=== PATIENT | female | born 1985 | race Caucasian/White ===

== ENCOUNTER 2017-02-04 19:15 | Emergency (ER) | payer OTHER ==
--- NOTE | 2017-02-04 21:41 | ED ORDER SUMMARY ---
..... Patient: HIRO GLYNN OrderSheet [facility] VisitID: [id number] [address] [place] [address] 31y, F Registration Date/Time: 02/04/2017 ORDER SHEET Weight: 86.1 kg (stated) Allergies: Bee stings, Shellfish-derived Products, Vicodin GENERAL ORDERS: US Venous Right Urgent (19:46 02/04/2017 EKoroleva P.A.-C) (Ack 19:55 CHategekimana) (21:11 CBradburn R.N.) CBC w Diff Urgent (19:46 02/04/2017 EKoroleva P.A.-C) (Ack 19:55 Berniceekimana) (20:06 CBradburn R.N.) BMP Urgent (19:46 02/04/2017 EKoroleva P.A.-C) (Ack 19:55 Berniceekimana) (20:06 CBradburn R.N.) Baljit Wrap (21:40 02/04/2017 EKoroleva P.A.-C) (21:58 CBradburn R.N.) MEDICATION ORDERS: Bactrim DS PO (Tablet 800-160 mg) 1 tab (NOW) (21:39 02/04/2017 EKoroleva P.A.-C) (Ack 21:47 CBradburn R.N.) (21:59 CBradburn R.N.) Keflex PO 500 mg (NOW) (21:40 02/04/2017 EKoroleva P.A.-C) (Ack 21:47 CBradburn R.N.) (22:00 CBradburn R.N.) Motrin PO 800 mg (NOW) (21:40 02/04/2017 EKoroleva P.A.-C) (Ack 21:47 CBradburn R.N.) (22:00 CBradburn R.N.) IV FLUIDS: IV Saline Lock (19:46 02/04/2017 EKoroleva P.A.-C) (20:07 CBradburn R.N.) IV NS : initial bolus 1000 mL (1000 mL/hr), then 1000 mL/hr for X1 (NOW); Jayy (20:32 02/04/2017 EKoroleva P.A.-C) (Ack 20:36 CBradburn R.N.) (20:44 CBdonovanburn R.N.) Dilaudid IV 1 mg (HIGH ALERT MEDICATION, NOW) (20:34 02/04/2017 EKoroleva P.A.-C) (Ack 20:36 CBradburn R.N.) (20:44 CBradburn R.N.) ORDER SHEET NOTES: [Electronically signed by Kristie ArnoldANoah-C (21:53 02/04/2017)] [Electronically signed by Rosana Fraser R.N. (22:06 02/04/2017)] [Electronically locked/signed by Rosana Fraser R.N. (22:06 02/04/2017)]
--- NOTE | 2017-02-04 21:41 | ED CLINICAL REPORT ---
Clinical Report - Physicians/Mid Levels [facility] [address] [place] [address] 02/04/2017 19:14 Patient: HIRO GLYNN Time Seen: 2014Feb 04 2017. Arrived- By private vehicle. Historian- patient. HISTORY OF PRESENT ILLNESS Chief Complaint: LOWER EXTREMITY PAIN and SWELLING. This started 3 days and is still present. No bladder dysfunction or bowel dysfunction. ( Patient reports right lower extremity pain especially below her right knee over the last 3 days. Patient denies any injury. Denies any shortness of breath. 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 Patient was on anticoagulation medication for 4 months, and consequently did not take any further. Denies any fevers or chills. Denies any shortness of breath. Patient reports some dizziness with sensation of room spinning today. Patient states she may be dehydrated.). Patient denies an injury. REVIEW OF SYSTEMS No cough, chest pain, difficulty breathing, fever or enlarged lymph nodes. No headache, sore throat, vomiting or diarrhea. All systems otherwise negative, except as recorded above. PAST HISTORY Problems: Sprain. Bronchitis. Contusion. Abscess. Dysfunctional Uterine Bleeding. Seizure Disorder. Seizures ?. Dizzy at work . Dizziness. Headache. Dental Pain. Depression. . Allergic Reaction. Acute Pain. UTI - Urinary Tract Infection. Lifestyle / Substance Problems. Polycystic Ovary Disease. Abdominal Pain. Ovarian Cyst. Immunizations. LNMP - Last Normal Menstrual Period. Additional Surgeries: . SOCIAL HISTORY Current every day light tobacco smoker. History of drug use: marijuana. Not an IV drug user. No alcohol use. ADDITIONAL NOTES The nursing notes have been reviewed. PHYSICAL EXAM Vital Signs: 02/04/2017 19:19 BP: 135/76. HR: 96. RR: 18. O2 saturation: 98%. Temp: 97.8 F. Pain level now: 10/10. Appearance: Alert. ENT: Ears normal. Nose normal. CVS: Normal heart rate and rhythm. Heart sounds normal. Respiratory: No respiratory distress. Abdomen: Soft and nontender. Back: Normal inspection. No tenderness. Skin: Skin warm. Normal skin color. Extremities: Right thigh. No tenderness or laceration. Right knee: mild tenderness and swelling located in the medial joint line. Limited ROM secondary to pain and weakness (diminished flexion). Small joint effusion present. (anterior/ medial/ posterior tenderness.). No ligamentous laxity present. No abrasion, ecchymosis, puncture wound or deformity. No signs of infection involving the lower extremities. No lower extremity edema. Gait: No limping gait. Neuro, Vascular and Tendons: No pulse deficit present. LABS, X-RAYS, AND EKG Laboratory Tests: CBC w Diff: (DOREEN: 02/04/2017 19:30) ( MsgRcvd 02/04/2017 20:01) Final results Test Result Flag Units (Reference) WHITE BLOOD COUNT 13.1 H K/uL (4.5-11.5) RED BLOOD COUNT 4.07 M/uL (4.00-5.20) HEMOGLOBIN 12.0 gm/dL (12.0-16.0) HEMATOCRIT 36.1 % (36.0-46.0) MEAN CELL VOLUME 89 fL (80-100) MEAN CORPUSCULAR HGB 29 pg (26-34) MEAN CORPUSCULAR HGB CONC 33 g/dL (31-37) RED CELL DISTRIBUTION WIDTH 14.0 % (11.6-14.8) PLATELET COUNT 383 K/uL (150-400) NEUTROPHIL % 69.6 % (50-75) LYMPH % 24.5 L % (25-40) MONO % 3.3 % (3-14) EOSINOPHIL % 1.8 % (0-4) BASOPHIL % 0.8 % (0-2) BMP: (DOREEN: 02/04/2017 19:30) ( MsgRcvd 02/04/2017 20:17) Final results Test Result Flag Units (Reference) GLUCOSE 97 mg/dL (70-110) BUN 12 mg/dL (7-18) CREATININE 0.8 mg/dL (0.6-1.3) Estimated GFR >60 mL/min Estimated GFR- >60 mL/min Note: Persistent reduction over 3 months in eGFR<60 mL/min/1.73 m2 defines CKD. Patients with eGFR values>=60 mL/min/1.73 m2 may also have CKD if evidence ofpersistent proteinuria. Additional information may be foundat www.kidney.org. SODIUM 140 mmol/L (136-145) POTASSIUM 3.5 mmol/L (3.5-5.1) CHLORIDE 103 mmol/L (98-107) CARBON DIOXIDE 27 mmol/L (21-32) CALCIUM 8.8 mg/dL (8.5-10.1) . PROGRESS AND PROCEDURES Course of Care: Patient with no signs of DVT. Slight leukocytosis, difficult to attribute such 2. Possible infectious process may be ongoing. Patient is with no lymphadenopathy. no known injury, however pain with movement of the patella as well as flexion of such. Patient stable. Patient is stable. Symptoms better. Patient/family counseled. Disposition: Discharged. CLINICAL IMPRESSION Cellulitis of the right lower leg. Sprain of the medial collateral ligament of the left knee. INSTRUCTIONS Apply ice. Elevate affected areas above chest level. Warnings: Further evaluation is necessary. Prescription Medications: Hydrocodone/APAP 5mg / 325mg: take 1 orally every 6 hours as needed for pain. Dispense twelve (12). No refill. Cephalexin 500 mg: take 1 capsule orally every 8 hours for 10 days. No refill. Ibuprofen take 1 tablet orally every 8 hours for 5 days, as needed for pain. Dispense fifteen (15). No refill. Bactrim DS 800 mg / 160 mg: take 1 tablet orally every 12 hours for 10 days. No refill. Substitution is permissible. Follow-up: Follow up with your doctor in seven days. (Electronically signed by Kristie Arnold P.A.-C 02/04/2017 21:53)
--- NOTE | 2017-02-04 21:41 | ED NURSING NOTES ---
Clinical Report - Nurses [facility] [address] [place] [address] 02/04/2017 19:14 Patient: HIRO GLYNN TRIAGE Triage time 19:19. Acuity: LEVEL 3. Chief Complaint: RIGHT LOWER EXTREMITY PAIN, SWELLING and REDNESS. --19:30 Rosana Fraser R.N. 19:19 02/04/17. BP: 135/76 taken on the left arm, while lying. HR: 96 (regular and normal rate). RR: 18 (regular and unlabored). O2 saturation: 98% on room air. Temp: 97.8 F (oral). Pain level now: 06/25. --19:30 Rosana Fraser R.N. Weight: 86.1 kg stated. Height/Length: 64 inches Per Patient. BMI: 32.6. --19:30 Rosana Fraser R.N. Medications Methadone HCl Oral (Tablet 10 mg) 1 tablet. --22:05 Rosana Fraser R.N. Allergies Bee stings. Shellfish-derived Products. Vicodin. --22:04 Rosana Fraser R.N. History Arrived by EMS. Historian: patient. Primary physician ([facility]). Location of injuries: right leg. This occurred (about 2 days ago). ( pt reports lower ext swelling and pain for 2 days worsening today, nausea denies vomiting. Reports "feeling out of it"). She has had redness with tenderness and heat to right leg and on left leg. PAST MEDICAL HX: Tetanus status: up-to-date. Last normal menstrual period- January 03 2017. 3. Para 1. Abortions 1. Sexual history - sexually active. No contraception. SOCIAL HX: Light tobacco smoker (cigarette)- less than 1/2 a pack per day. History of drug use: marijuana. (1 weeks ago). No alcohol use. No infectious disease exposure. ABUSE ASSESSMENT: No report of abuse. SELF HARM ASSESSMENT: A self harm assessment was performed. The patient answered "no" to the question "Have you recently felt down, depressed, or hopeless?", "Have you noticed less interest or pleasure in doing things?", "Do you have thoughts of harming or killing yourself?", "Are you here because you tried to hurt yourself?", "Have you ever tried to hurt yourself before today?", "Have you recently had thoughts about harming or killing others?" and "Do you have any dangerous items in your possession?". --19:30 Rosana Fraser R.N. PROBLEMS: Bronchitis. Contusion. Abscess. Dysfunctional Uterine Bleeding. Seizure Disorder. Seizures ?. Dizzy at work . Dizziness. Headache. Dental Pain. Depression. . Allergic Reaction. Acute Pain. UTI - Urinary Tract Infection. Lifestyle / Substance Problems. Polycystic Ovary Disease. Abdominal Pain. Ovarian Cyst. Immunizations. LNMP - Last Normal Menstrual Period. --22:06 Rosana Fraser R.N. Dyspnea [Resolved]. Vaginitis [Resolved]. Lower Extremity Pain [Resolved]. Spontaneous (Miscarriage) [Resolved]. --22:06 Rosana Fraser R.N. Seizure [RuleOut]. --22:06 Rosana Fraser R.N. ADDITIONAL SURGERIES: . --22:06 Rosana Fraser R.N. PHYSICAL ASSESSMENT To room via stretcher. GENERAL / NEURO / PSYCH: Oriented X 4. Alert. Appears in no acute distress. Appears in pain. EXTREMITIES: Limited ROM present in the right lower leg and left lower leg. Lower extremity edema. Extremity pulses are within normal limits. Neuro-vascular status intact to the extremity. Right knee: tenderness, swelling and erythema. Right leg. SKIN: Skin intact. Skin is warm and dry. --19:31 Rosana Fraser R.N. NURSING PROGRESS NOTES 19:33 02/04/2017 Site #1 started via IV in the left antecubital space with an 20g angiocath, with aseptic technique and good blood return; one attempt. Blood drawn: rainbow set. Labeled in the presence of the patient and sent to the lab. Saline lock flushed with 10 mL saline. --19:33 Rosana Fraser R.N. Patient ready for evaluation- chart flagged. --19:33 Rosana Fraser R.N. Patient gowned. Two patient identifiers checked. Call light placed in reach. Side rails up x 1. Bed placed in lowest position. Brakes of bed on. --19:33 Rosana Fraser R.N. Patient ID band checked for patient name: patient confirmed. Instructions provided to collect clean catch urine and patient verbalized understanding urine collected with return of tess-colored cloudy urine; sample sent to lab for urinalysis and HCG. Specimen labeled in the presence of the patient. --19:36 Rosana Fraser R.N. 20:28 02/04/17. BP: 137/79 taken on the right arm, while sitting. HR: 95 (regular and normal rate). RR: 16 (regular and unlabored). O2 saturation: 99% on room air. Temp: deferred. Pain level now: 06/25. --20:30 Rosana Fraser R.N. ( pt sitting up on end of gurney no distress noted, continues to c/o pain to lower extremities). GENERAL / NEURO / PSYCH: Alert. Oriented X 4. RESPIRATORY: No respiratory distress. CVS: Capillary refill less than 2 seconds. EXTREMITIES: Neuro-vascular status intact to the extremities. SKIN: Skin is warm and dry. Two patient identifiers checked. Call light placed in reach. Side rails up x 1. Bed placed in lowest position. Brakes of bed on. --20:30 Rosana Fraser R.N. 20:40 02/04/2017 Started bag #1 1000 mL IV Fluids IV NS (Saline); bolus of 1000 mL wide open via site #1. Allergies verified and confirmed 5 rights. IV patency established. IV site checked: no pain, redness, or swelling. IV flushed thoroughly pre- and post-medication administration. --20:44 Rosana Fraser R.N. 20:42 02/04/2017 Dilaudid (HYDROmorphone HCl PF) IVP 1 mg given over 2 minute(s) via site #1. Allergies verified, confirmed 5 rights and sedative warning given to the patient. IV patency established. IV site checked: no pain, redness, or swelling. IV flushed thoroughly pre- and post-medication administration. IVP given by RN. --20:44 Rosana Fraser R.N. 21:50 02/04/2017 Bactrim DS (Sulfamethoxazole-TMP DS) PO Tablets 1 tab given. Allergies verified and confirmed 5 rights. --21:59 Rosana Fraser R.N. 21:50 02/04/2017 Keflex (Cephalexin) PO Capsules 500 mg given. Allergies verified and confirmed 5 rights. --22:00 Rosana Fraser R.N. 21:50 02/04/2017 Motrin PO Tablets 800 mg given. Allergies verified and confirmed 5 rights. --22:00 Rosana Fraser R.N. 21:50 02/04/2017 IV Fluids IV NS Discontinued: bag #1 completed upon discharge. Total amount infused: 1000 mL. IV patency established. IV site checked: no pain, redness, or swelling. IV flushed thoroughly. --21:59 Rosana Fraser R.N. 21:55 02/04/2017 Site #1 removed upon discharge. Catheter intact. Manual pressure and bandage applied. --22: Rosana Fraser R.N. 21:55 02/04/2017 IV Saline Lock Drip IV Discontinued: upon discharge. Total amount infused: 1000 mL. IV patency established. IV site checked: no pain, redness, or swelling. IV flushed thoroughly. --22:00 Rosana Fraser R.N. 3 inch maddi bandage applied to right knee by nurse; distal pulses intact, sensation intact and motor function within normal limits. The patient reports no complaints. GENERAL / NEURO / PSYCH: Oriented X 4. --22:02 Rosana Fraser R.N. DISPOSITION / DISCHARGE Condition at departure: improved and stable. No learning barriers present. Discharge instructions provided and reviewed with the patient. Reviewed medication(s) side effects, precautions, dosing and course information. Prescription(s) given to the patient. Patient verbalized understanding. The patient was discharged home and accompanied by spouse. She left the Emergency Department ambulatory and via private vehicle. Spouse driving. --22:03 Rosana Fraser R.N. 21:55 02/04/17. BP: 141/80 taken on the right arm, while sitting. HR: 88 (regular and normal rate). RR: 18 (regular and unlabored). O2 saturation: 99% on room air. Temp: deferred. Pain level now: 10/26. --22:03 Rosana Fraser R.N. Departure time: 2154. --22:03 Rosana Fraser R.N. Locked/Released at 02/04/2017 22:06 by Rosana Fraser R.N.
--- NOTE | 2017-02-04 21:41 | ED ORDER SUMMARY ---
..... Patient: HIRO GLYNN OrderSheet [facility] VisitID: [id number] [address] [place] [address] 31y, F Registration Date/Time: 02/04/2017 ORDER SHEET Weight: 86.1 kg (stated) Allergies: Bee stings, Shellfish-derived Products, Vicodin GENERAL ORDERS: US Venous Right Urgent (19:46 02/04/2017 EKoroleva P.A.-C) (Ack 19:55 CHategekimana) (21:11 CBradburn R.N.) CBC w Diff Urgent (19:46 02/04/2017 EKoroleva P.A.-C) (Ack 19:55 Berniceekimana) (20:06 CBradburn R.N.) BMP Urgent (19:46 02/04/2017 EKoroleva P.A.-C) (Ack 19:55 Berniceekimana) (20:06 CBradburn R.N.) Baljit Wrap (21:40 02/04/2017 EKoroleva P.A.-C) (21:58 CBradburn R.N.) MEDICATION ORDERS: Bactrim DS PO (Tablet 800-160 mg) 1 tab (NOW) (21:39 02/04/2017 EKoroleva P.A.-C) (Ack 21:47 CBradburn R.N.) (21:59 CBradburn R.N.) Keflex PO 500 mg (NOW) (21:40 02/04/2017 EKoroleva P.A.-C) (Ack 21:47 CBradburn R.N.) (22:00 CBradburn R.N.) Motrin PO 800 mg (NOW) (21:40 02/04/2017 EKoroleva P.A.-C) (Ack 21:47 CBradburn R.N.) (22:00 CBradburn R.N.) IV FLUIDS: IV Saline Lock (19:46 02/04/2017 EKoroleva P.A.-C) (20:07 CBradburn R.N.) IV NS : initial bolus 1000 mL (1000 mL/hr), then 1000 mL/hr for X1 (NOW); Jayy (20:32 02/04/2017 EKoroleva P.A.-C) (Ack 20:36 CBradburn R.N.) (20:44 CBdonovanburn R.N.) Dilaudid IV 1 mg (HIGH ALERT MEDICATION, NOW) (20:34 02/04/2017 EKoroleva P.A.-C) (Ack 20:36 CBradburn R.N.) (20:44 CBradburn R.N.) ORDER SHEET NOTES: [Electronically signed by Kristie ArnoldANoah-C (21:53 02/04/2017)] [Electronically signed by Rosana Fraser R.N. (22:06 02/04/2017)] [Electronically locked/signed by Rosana Fraser R.N. (22:06 02/04/2017)]
--- NOTE | 2017-02-04 21:45 | DIAGNOSTIC IMAGING REPORT ---
PROCEDURE: US VENOUS - RIGHT EXT INDICATION: SWELLING TECHNIQUE: Duplex sonography of the deep venous system in the right lower extremity was performed. Compression and augmentation techniques were used. COMPARISON: None. FINDINGS: Normal compression of the greater saphenous, common femoral, superficial femoral, popliteal, peroneal, and posterior tibial veins. Normal augmentation. There is no evidence of superficial or deep venous thrombosis. IMPRESSION: 1. Negative venous ultrasound of the right lower extremity.
--- NOTE | 2017-02-04 22:06 | ED MED RECONCILIATION SUMMARY ---
Patient: HIRO GLYNN Medication Reconciliation Report [facility] VisitID: [id number] [address] [place] [address] 31y, F Registration Date/Time: 02/04/2017 Weight: 86.1 kg Height/Length: 64 in. BMI: 32.6 ALLERGIES: Bee stings, Shellfish-derived Products, Vicodin The patient's Home Medications are listed below: THE FOLLOWING MEDICATIONS NEED TO BE RECONCILED: Methadone HCl Oral (10 mg) 1 tablet The source(s) of the original Home Medication information: Not obtained. The following Medications were given to the patient in the Emergency Department: IV NS IV Fluids bolus 1000 mL wide open, administered: 02/04/2017 8:40:00 PM Dilaudid [IVP] IVP 1 mg, administered: 02/04/2017 8:42:00 PM Bactrim DS [PO] PO 1 tab, administered: 02/04/2017 9:50:00 PM Keflex [PO] PO 500 mg, administered: 02/04/2017 9:50:00 PM Motrin [PO] PO 800 mg, administered: 02/04/2017 9:50:00 PM The following Medications were prescribed to the patient: Hydrocodone/APAP 5mg / 325mg: take 1 orally every 6 hours as needed for pain. Dispense twelve (12). No refill. -- Kristie Arnold, P.A.-C Cephalexin 500 mg: take 1 capsule orally every 8 hours for 10 days. No refill. -- Estelaoleyao, Kristie, P.A.-C Ibuprofen take 1 tablet orally every 8 hours for 5 days, as needed for pain. Dispense fifteen (15). No refill. -- Catalina, Kristie, P.A.-C Bactrim DS 800 mg / 160 mg: take 1 tablet orally every 12 hours for 10 days. No refill. Substitution is permissible. -- Kristie Arnold, P.A.-C
--- NOTE | 2017-02-04 22:06 | ED MAR SUMMARY ---
..... Medication Administration Record [facility] [address] [place] [address] Patient: HIRO GLYNN Visit ID: [id number] 31y, F Weight: 86.1 kg Height/Length: 64 in BMI: 32.6 ALLERGIES: Bee stings, Shellfish-derived Products, Vicodin Start 20:40 02/04/2017 Rosana Fraser R.N., Stop 21:50 02/04/2017 Rosana Fraser R.N. Medication Administered: IV NS (SALINE), Dose: IV Fluids, Bolus: 1000 mL wide open, Dispensed: 1000 mL bag, Site: #1 left AC. Medication Ordered: IV NS : initial bolus 1000 mL (1000 mL/hr), then 1000 mL/hr for X1 (NOW); Jayy. Given 20:42 02/04/2017 Rosana Fraser R.N. Medication Administered: DILAUDID [IVP] (HYDROMORPHONE HCL PF), Dose: 1 mg IVP over 2 minute(s), Site: #1 left AC. Medication Ordered: Dilaudid IV 1 mg (HIGH ALERT MEDICATION, NOW). Given 21:50 02/04/2017 Rosana Fraser R.N. Medication Administered: BACTRIM DS [PO] (SULFAMETHOXAZOLE-TMP DS), Dose: 1 tab Tablets PO. Medication Ordered: Bactrim DS PO (Tablet 800-160 mg) 1 tab (NOW). Given 21:50 02/04/2017 Rosana Fraser R.N. Medication Administered: KEFLEX [PO] (CEPHALEXIN), Dose: 500 mg Capsules PO. Medication Ordered: Keflex PO 500 mg (NOW). Given 21:50 02/04/2017 Rosana Fraser R.N. Medication Administered: MOTRIN [PO], Dose: 800 mg Tablets PO. Medication Ordered: Motrin PO 800 mg (NOW).
--- NOTE | 2017-02-04 22:06 | ED MAR SUMMARY ---
..... Medication Administration Record [facility] [address] [place] [address] Patient: HIRO GLYNN Visit ID: [id number] 31y, F Weight: 86.1 kg Height/Length: 64 in BMI: 32.6 ALLERGIES: Bee stings, Shellfish-derived Products, Vicodin Start 20:40 02/04/2017 Rosana Fraser R.N., Stop 21:50 02/04/2017 Rosana Fraser R.N. Medication Administered: IV NS (SALINE), Dose: IV Fluids, Bolus: 1000 mL wide open, Dispensed: 1000 mL bag, Site: #1 left AC. Medication Ordered: IV NS : initial bolus 1000 mL (1000 mL/hr), then 1000 mL/hr for X1 (NOW); Jayy. Given 20:42 02/04/2017 Rosana Fraser R.N. Medication Administered: DILAUDID [IVP] (HYDROMORPHONE HCL PF), Dose: 1 mg IVP over 2 minute(s), Site: #1 left AC. Medication Ordered: Dilaudid IV 1 mg (HIGH ALERT MEDICATION, NOW). Given 21:50 02/04/2017 Rosana Fraser R.N. Medication Administered: BACTRIM DS [PO] (SULFAMETHOXAZOLE-TMP DS), Dose: 1 tab Tablets PO. Medication Ordered: Bactrim DS PO (Tablet 800-160 mg) 1 tab (NOW). Given 21:50 02/04/2017 Rosana Fraser R.N. Medication Administered: KEFLEX [PO] (CEPHALEXIN), Dose: 500 mg Capsules PO. Medication Ordered: Keflex PO 500 mg (NOW). Given 21:50 02/04/2017 Rosana Fraser R.N. Medication Administered: MOTRIN [PO], Dose: 800 mg Tablets PO. Medication Ordered: Motrin PO 800 mg (NOW).
--- NOTE | 2017-02-04 22:06 | ED MED RECONCILIATION SUMMARY ---
Patient: HIRO GLYNN Medication Reconciliation Report [facility] VisitID: [id number] [address] [place] [address] 31y, F Registration Date/Time: 02/04/2017 Weight: 86.1 kg Height/Length: 64 in. BMI: 32.6 ALLERGIES: Bee stings, Shellfish-derived Products, Vicodin The patient's Home Medications are listed below: THE FOLLOWING MEDICATIONS NEED TO BE RECONCILED: Methadone HCl Oral (10 mg) 1 tablet The source(s) of the original Home Medication information: Not obtained. The following Medications were given to the patient in the Emergency Department: IV NS IV Fluids bolus 1000 mL wide open, administered: 02/04/2017 8:40:00 PM Dilaudid [IVP] IVP 1 mg, administered: 02/04/2017 8:42:00 PM Bactrim DS [PO] PO 1 tab, administered: 02/04/2017 9:50:00 PM Keflex [PO] PO 500 mg, administered: 02/04/2017 9:50:00 PM Motrin [PO] PO 800 mg, administered: 02/04/2017 9:50:00 PM The following Medications were prescribed to the patient: Hydrocodone/APAP 5mg / 325mg: take 1 orally every 6 hours as needed for pain. Dispense twelve (12). No refill. -- Kristie Arnold, P.A.-C Cephalexin 500 mg: take 1 capsule orally every 8 hours for 10 days. No refill. -- Estelaoleyao, Kristie, P.A.-C Ibuprofen take 1 tablet orally every 8 hours for 5 days, as needed for pain. Dispense fifteen (15). No refill. -- Catalina, Kristie, P.A.-C Bactrim DS 800 mg / 160 mg: take 1 tablet orally every 12 hours for 10 days. No refill. Substitution is permissible. -- Kristie Arnold, P.A.-C
--- NOTE | 2017-02-04 22:06 | ED DISCHARGE INSTRUCTIONS ---
Patient: HIRO GLYNN General Instructions [facility] VisitID: [id number] [place] [address] 31y, F Registration Date/Time: 02/04/2017 Cellulitis of the right lower leg. Sprain of the medial collateral ligament of the left knee. INSTRUCTIONS Apply ice. Elevate affected areas above chest level. Warnings: Further evaluation is necessary. Prescription Medications: Hydrocodone/APAP 5mg / 325mg: take 1 orally every 6 hours as needed for pain. Dispense twelve (12). No refill. Cephalexin 500 mg: take 1 capsule orally every 8 hours for 10 days. No refill. Ibuprofen take 1 tablet orally every 8 hours for 5 days, as needed for pain. Dispense fifteen (15). No refill. Bactrim DS 800 mg / 160 mg: take 1 tablet orally every 12 hours for 10 days. No refill. Substitution is permissible. Follow-up: Follow up with your doctor in seven days. ADDITIONAL INFORMATION Cellulitis You have an infection of the skin known as cellulitis. This usually starts with a scrape, cut, insect bite, blister or other opening in the skin which becomes infected. This is a serious condition. It must be watched closely to be sure the infection is not spreading. With antibiotic treatment, the size of the red area will gradually shrink in size until the skin returns to normal. This will take 7-10 days. The red area should never increase in size once the antibiotic medicine has been started. Occasionally, an infection will be resistant to one antibiotic and another one will have to be used. Home Care: 1) Limit the use of the affected part, since excess movement can cause the infection to spread. 2) If the infection is on your leg, walk as little as possible during the first few days of the treatment. Keep your leg elevated while sitting. This will reduce swelling. 3) Take all of the antibiotic medicine exactly as directed until it is gone. Be careful not to miss any doses, especially during the first seven days. Follow Up with your doctor or this facility as directed. Check the infected area daily for the warning signs listed below. Get Prompt Medical Attention if any of the following occur: -- Spreading area of redness -- Increasing swelling or pain -- Appearance of pus or drainage -- Fever over 100.4 F (38.0 C) oral, or over 101.4 F (38.6 C) rectal, after two days on antibiotics Sprain, Knee A sprain is an injury to the ligaments or capsule that holds a joint together. There are no broken bones. Most sprains take three to six weeks to heal. If the ligament is completely torn (severe sprain), it can take months to recover from. Most knee sprains are treated with a splint, knee immobilizer or elastic wrap for support. Severe sprains may require surgery. Home care The following guidelines will help you care for your injury at home: Stay off the injured leg as much as possible until you can walk on it without pain. If you have a lot of pain with walking, crutches or a walker may be prescribed. (These can be rented or purchased at many pharmacies and surgical or orthopedic supply stores). Follow your doctor's advice regarding when to begin bearing weight on that leg. Keep your leg elevated to reduce pain and swelling. When sleeping, place a pillow under the injured leg. When sitting, support the injured leg so it is level with your waist. This is very important during the first 48 hours. Apply an ice pack (ice cubes in a plastic bag, wrapped in a towel) over the injured area for 20 minutes every 12 hours the first day. You can place the ice pack directly over the splint. If a Velcro knee immobilizer was applied, you can open this to apply the ice pack directly to the knee. Continue with ice packs 34 times a day for the next two days, then as needed for the relief of pain and swelling. You may use acetaminophen or ibuprofen to control pain, unless another pain medicine was prescribed. If you have chronic liver or kidney disease or ever had a stomach ulcer or GI bleeding, talk with your doctor before using these medicines. If you were given a splint, keep it completely dry at all times. Bathe with your splint out of the water, protected with a large plastic bag, rubber-banded at the top end. If a fiberglass splint gets wet, you can dry it with a hair-dryer. If you have a Velcro knee immobilizer, you can remove this to bathe, unless told otherwise. Follow-up care Follow up with your doctor as advised. Any X-rays you had today dont show any broken bones, breaks, or fractures. Sometimes fractures dont show up on the first X-ray. Bruises and sprains can sometimes hurt as much as a fracture. These injuries can take time to heal completely. If your symptoms dont improve or they get worse, talk with your doctor. You may need a repeat X-ray. When to seek medical care Get prompt medical attention if any of the following occur: The plaster cast or splint becomes wet or soft The fiberglass cast or splint remains wet for more than 24 hours Pain or swelling increases Toes become cold, blue, numb or tingly Hydrocodone Bitartrate, Acetaminophen Oral tablet What is this medicine? ACETAMINOPHEN; HYDROCODONE (a set a VIKY bryon fen; champ droe KOE done) is a pain reliever. It is used to treat mild to moderate pain. How should I use this medicine? Take this medicine by mouth. Swallow it with a full glass of water. Follow the directions on the prescription label. If the medicine upsets your stomach, take the medicine with food or milk. Do not take more than you are told to take. Talk to your supervisor feed house regarding the use of this medicine in children. This medicine is not approved for use in children. What side effects may I notice from receiving this medicine? Side effects that you should report to your doctor or health anesthesiologist and critical care as soon as possible: allergic reactions like skin rash, itching or hives, swelling of the face, lips, or tongue breathing problems confusion feeling faint or lightheaded, falls stomach pain yellowing of the eyes or skin Side effects that usually do not require medical attention (report to your doctor or health anesthesiologist and critical care if they continue or are bothersome): nausea, vomiting stomach upset What may interact with this medicine? alcohol antihistamines isoniazid medicines for depression, anxiety, or psychotic disturbances medicines for sleep muscle relaxants naltrexone narcotic medicines (opiates) for pain phenobarbital ritonavir tramadol What if I miss a dose? If you miss a dose, take it as soon as you can. If it is almost time for your next dose, take only that dose. Do not take double or extra doses. Where should I keep my medicine? Keep out of the reach of children. This medicine can be abused. Keep your medicine in a safe place to protect it from theft. Do not share this medicine with anyone. Selling or giving away this medicine is dangerous and against the law. Store at room temperature between 15 and 30 degrees C (59 and 86 degrees F). Protect from light. Keep container tightly closed. Throw away any unused medicine after the expiration date. Discard unused medicine and used packaging carefully. Pets and children can be harmed if they find used or lost packages. What should I tell my health care provider before I take this medicine? They need to know if you have any of these conditions: brain tumor Crohn's disease, inflammatory bowel disease, or ulcerative colitis drink more than 3 alcohol-containing drinks per day drug abuse or addiction head injury heart or circulation problems kidney disease or problems going to the bathroom liver disease lung disease, asthma, or breathing problems an unusual or allergic reaction to acetaminophen, hydrocodone, other opioid analgesics, other medicines, foods, dyes, or preservatives or trying to get breast-feeding What should I watch for while using this medicine? Tell your doctor or health anesthesiologist and critical care if your pain does not go away, if it gets worse, or if you have new or a different type of pain. You may develop tolerance to the medicine. Tolerance means that you will need a higher dose of the medicine for pain relief. Tolerance is normal and is expected if you take the medicine for a long time. Do not suddenly stop taking your medicine because you may develop a severe reaction. Your body becomes used to the medicine. This does NOT mean you are addicted. Addiction is a behavior related to getting and using a drug for a non-medical reason. If you have pain, you have a medical reason to take pain medicine. Your doctor will tell you how much medicine to take. If your doctor wants you to stop the medicine, the dose will be slowly lowered over time to avoid any side effects. You may get drowsy or dizzy when you first start taking the medicine or change doses. Do not drive, use machinery, or do anything that may be dangerous until you know how the medicine affects you. Stand or sit up slowly. There are different types of narcotic medicines (opiates) for pain. If you take more than one type at the same time, you may have more side effects. Give your health care provider a list of all medicines you use. Your doctor will tell you how much medicine to take. Do not take more medicine than directed. Call emergency for help if you have problems breathing. The medicine will cause constipation. Try to have a bowel movement at least every 2 to 3 days. If you do not have a bowel movement for 3 days, call your doctor or health anesthesiologist and critical care. Too much acetaminophen can be very dangerous. Do not take Tylenol (acetaminophen) or medicines that contain acetaminophen with this medicine. Many non-prescription medicines contain acetaminophen. Always read the labels carefully. Cephalexin Monohydrate Oral tablet What is this medicine? CEPHALEXIN (sef a JER in) is a cephalosporin antibiotic. It is used to treat certain kinds of bacterial infections It will not work for colds, flu, or other viral infections. How should I use this medicine? Take this medicine by mouth with a full glass of water. Follow the directions on the prescription label. This medicine can be taken with or without food. Take your medicine at regular intervals. Do not take your medicine more often than directed. Take all of your medicine as directed even if you think you are better. Do not skip doses or stop your medicine early. Talk to your supervisor feed house regarding the use of this medicine in children. While this drug may be prescribed for selected conditions, precautions do apply. What side effects may I notice from receiving this medicine? Side effects that you should report to your doctor or health anesthesiologist and critical care as soon as possible: allergic reactions like skin rash, itching or hives, swelling of the face, lips, or tongue breathing problems pain or trouble passing urine redness, blistering, peeling or loosening of the skin, including inside the mouth severe or watery diarrhea unusually weak or tired yellowing of the eyes, skin Side effects that usually do not require medical attention (report to your doctor or health anesthesiologist and critical care if they continue or are bothersome): gas or heartburn genital or anal irritation headache joint or muscle pain nausea, vomiting What may interact with this medicine? probenecid some other antibiotics What if I miss a dose? If you miss a dose, take it as soon as you can. If it is almost time for your next dose, take only that dose. Do not take double or extra doses. There should be at least 4 to 6 hours between doses. Where should I keep my medicine? Keep out of the reach of children. Store at room temperature between 59 and 86 degrees F (15 and 30 degrees C). Throw away any unused medicine after the expiration date. What should I tell my health care provider before I take this medicine? They need to know if you have any of these conditions: kidney disease stomach or intestine problems, especially colitis an unusual or allergic reaction to cephalexin, other cephalosporins, penicillins, other antibiotics, medicines, foods, dyes or preservatives or trying to get breast-feeding What should I watch for while using this medicine? Tell your doctor or health anesthesiologist and critical care if your symptoms do not begin to improve in a few days. Do not treat diarrhea with over the counter products. Contact your doctor if you have diarrhea that lasts more than 2 days or if it is severe and watery. If you have diabetes, you may get a false-positive result for sugar in your urine. Check with your doctor or health anesthesiologist and critical care. Sulfamethoxazole, Trimethoprim Oral tablet What is this medicine? SULFAMETHOXAZOLE; TRIMETHOPRIM or SMX-TMP (suhl fuh meth OK eloina zohl; trye METH oh prim) is a combination of a sulfonamide antibiotic and a second antibiotic, trimethoprim. It is used to treat or prevent certain kinds of bacterial infections. It will not work for colds, flu, or other viral infections. How should I use this medicine? Take this medicine by mouth with a full glass of water. Follow the directions on the prescription label. Take your medicine at regular intervals. Do not take it more often than directed. Do not skip doses or stop your medicine early. Talk to your supervisor feed house regarding the use of this medicine in children. Special care may be needed. This medicine has been used in children as young as 2 months of age. What side effects may I notice from receiving this medicine? Side effects that you should report to your doctor or health anesthesiologist and critical care as soon as possible: allergic reactions like skin rash or hives, swelling of the face, lips, or tongue breathing problems fever or chills, sore throat irregular heartbeat, chest pain joint or muscle pain pain or difficulty passing urine red pinpoint spots on skin redness, blistering, peeling or loosening of the skin, including inside the mouth unusual bleeding or bruising unusually weak or tired yellowing of the eyes or skin Side effects that usually do not require medical attention (report to your doctor or health anesthesiologist and critical care if they continue or are bothersome): diarrhea dizziness headache loss of appetite nausea, vomiting nervousness What may interact with this medicine? Do not take this medicine with any of the following medications: aminobenzoate potassium dofetilide metronidazole This medicine may also interact with the following medications: ARLETTE inhibitors like benazepril, enalapril, lisinopril, and ramipril cyclosporine digoxin diuretics indomethacin medicines for diabetes methenamine methotrexate phenytoin potassium supplements pyrimethamine sulfinpyrazone tricyclic antidepressants warfarin What if I miss a dose? If you miss a dose, take it as soon as you can. If it is almost time for your next dose, take only that dose. Do not take double or extra doses. Where should I keep my medicine? Keep out of the reach of children. Store at room temperature between 20 to 25 degrees C (68 to 77 degrees F). Protect from light. Throw away any unused medicine after the expiration date. What should I tell my health care provider before I take this medicine? They need to know if you have any of these conditions: anemia asthma being treated with anticonvulsants if you frequently drink alcohol containing drinks kidney disease liver disease low level of folic acid or [id number] dehydrogenase poor nutrition or malabsorption porphyria severe allergies thyroid disorder an unusual or allergic reaction to sulfamethoxazole, trimethoprim, sulfa drugs, other medicines, foods, dyes, or preservatives or trying to get breast-feeding What should I watch for while using this medicine? Tell your doctor or health anesthesiologist and critical care if your symptoms do not improve. Drink several glasses of water a day to reduce the risk of kidney problems. Do not treat diarrhea with over the counter products. Contact your doctor if you have diarrhea that lasts more than 2 days or if it is severe and watery. This medicine can make you more sensitive to the sun. Keep out of the sun. If you cannot avoid being in the sun, wear protective clothing and use a sunscreen. Do not use sun lamps or tanning beds/booths. You have been given the following additional information: Cellulitis Knee Sprain Hydrocodone Bitartrate, Acetaminophen Oral tablet Cephalexin Monohydrate Oral tablet Sulfamethoxazole, Trimethoprim Oral tablet (Electronically signed by Kristie Arnold P.A.-C 02/04/2017 21:53)
== END 2017-02-04 21:55 | disposition home or self-care (01) ==
LOC: ED SRH 19:15
DX: L03.115 Cellulitis of right lower limb (principal); S83.412A Sprain of medial collateral ligament of left knee, initial encounter; Y93.9 Activity, unspecified; Y99.9 Unspecified external cause status; Y92.9 Unspecified place or not applicable; Z88.5 Allergy status to narcotic agent; Z91.013 Allergy to seafood; Z72.0 Tobacco use

== ENCOUNTER 2017-03-10 22:27 | Emergency (ER) | payer OTHER ==
--- NOTE | 2017-03-10 23:16 | ED CLINICAL REPORT ---
Clinical Report - Physicians/Mid Levels [facility] [address] [place] [address] 03/10/2017 22:29 Patient: HIRO GLYNN Time Seen: 13:15 Mar 11 2017. Arrived- By ambulance. Historian- patient and EMS personnel. HISTORY OF PRESENT ILLNESS Chief Complaint: SKIN RASH. The patient has had difficulty breathing, itching and trouble swallowing. This started just prior to arrival and is still present. (patient was previously seen in the emergency department, for cellulitis, was prescribed Keflex> Patient took her Keflex, however did not finished a course of antibiotics, as her symptoms improved. Over the last 2 days for lower extremity swelling has worsened a started with Keflex again, taking 1000 mg . patient had a burning sensation in her hand, took Benadryl prior to arrival, her symptoms are now improving.). REVIEW OF SYSTEMS No eye problems, cough, sputum production, fever or chills. No joint pain, headache, weakness, chest pain or abdominal pain. No vomiting or pain with urination. All systems otherwise negative, except as recorded above. SOCIAL HISTORY No drug use. PHYSICAL EXAM Appearance: Alert. No acute distress. Eyes: Pupils equal, round and reactive to light. ENT: Voice normal. Neck: Neck supple. CVS: Normal heart rate and rhythm. Heart sounds normal. Rate normal. Respiratory: No respiratory distress. Breath sounds normal. Skin: Skin warm. Erythema (mild pink, no warmth.). Skin: Skin rash. No urticaria. Neuro: Oriented X 3. No motor deficit. PROGRESS AND PROCEDURES Course of Care: Patient in the emergency department with minor lower extremity swelling and erythema, encourage patient to take antibiotics and full, as previously prescribed, avoid Keflex for the time being, she may have a sensitivity to Keflex and high doses. 03/10/2017 23:25 BP: 139/88. HR: 83. RR: 15. O2 saturation: 100%. Pain level now: 0/10. Patient is stable. Symptoms better. Patient/family counseled. Disposition: Discharged. Condition: good. CLINICAL IMPRESSION Allergic reaction. Cellulitis of the right lower leg and left lower leg. INSTRUCTIONS (if you are taking keflex, take 500 mg at a time [facility] ). Warnings: Further evaluation is necessary. Prescription Medications: Bactrim DS 800 mg / 160 mg: take 1 tablet orally every 12 hours for 10 days. No refill. Substitution is permissible. OTC Medications: Take acetaminophen (Tylenol, Datril, etc.), ibuprofen (Advil, Nuprin, etc.) and Benadryl according to label instructions. Available over the counter. Follow-up: Follow up with your doctor as needed. (Electronically signed by Kristie Arnold P.A.-C 03/11/2017 14:35)
--- NOTE | 2017-03-10 23:16 | ED CLINICAL REPORT ---
Clinical Report - Physicians/Mid Levels [facility] [address] [place] [address] 03/10/2017 22:29 Patient: HIRO GLYNN Time Seen: 13:15 Mar 11 2017. Arrived- By ambulance. Historian- patient and EMS personnel. HISTORY OF PRESENT ILLNESS Chief Complaint: SKIN RASH. The patient has had difficulty breathing, itching and trouble swallowing. This started just prior to arrival and is still present. (patient was previously seen in the emergency department, for cellulitis, was prescribed Keflex> Patient took her Keflex, however did not finished a course of antibiotics, as her symptoms improved. Over the last 2 days for lower extremity swelling has worsened a started with Keflex again, taking 1000 mg . patient had a burning sensation in her hand, took Benadryl prior to arrival, her symptoms are now improving.). REVIEW OF SYSTEMS No eye problems, cough, sputum production, fever or chills. No joint pain, headache, weakness, chest pain or abdominal pain. No vomiting or pain with urination. All systems otherwise negative, except as recorded above. SOCIAL HISTORY No drug use. PHYSICAL EXAM Appearance: Alert. No acute distress. Eyes: Pupils equal, round and reactive to light. ENT: Voice normal. Neck: Neck supple. CVS: Normal heart rate and rhythm. Heart sounds normal. Rate normal. Respiratory: No respiratory distress. Breath sounds normal. Skin: Skin warm. Erythema (mild pink, no warmth.). Skin: Skin rash. No urticaria. Neuro: Oriented X 3. No motor deficit. PROGRESS AND PROCEDURES Course of Care: Patient in the emergency department with minor lower extremity swelling and erythema, encourage patient to take antibiotics and full, as previously prescribed, avoid Keflex for the time being, she may have a sensitivity to Keflex and high doses. 03/10/2017 23:25 BP: 139/88. HR: 83. RR: 15. O2 saturation: 100%. Pain level now: 0/10. Patient is stable. Symptoms better. Patient/family counseled. Disposition: Discharged. Condition: good. CLINICAL IMPRESSION Allergic reaction. Cellulitis of the right lower leg and left lower leg. INSTRUCTIONS (if you are taking keflex, take 500 mg at a time [facility] ). Warnings: Further evaluation is necessary. Prescription Medications: Bactrim DS 800 mg / 160 mg: take 1 tablet orally every 12 hours for 10 days. No refill. Substitution is permissible. OTC Medications: Take acetaminophen (Tylenol, Datril, etc.), ibuprofen (Advil, Nuprin, etc.) and Benadryl according to label instructions. Available over the counter. Follow-up: Follow up with your doctor as needed. (Electronically signed by Kristie Arnold P.A.-C 03/11/2017 14:35)
--- NOTE | 2017-03-10 23:16 | ED ORDER SUMMARY ---
..... Patient: HIRO GLYNN OrderSheet [facility] VisitID: [id number] [place] [address] 31y, F Registration Date/Time: 03/10/2017 ORDER SHEET Weight: 85.7 kg (stated) Allergies: Bee stings, Shellfish-derived Products, Vicodin GENERAL ORDERS: MEDICATION ORDERS: IV FLUIDS: Pepcid IV 40 mg/50mL (NOW) (22:46 03/10/2017 Obi P.A.-C) (Ack 22:48 JQuivey R.N.) (22:54 JQuivey R.N.) IV NS : initial bolus none -, then 1000 mL/hr (NOW) (23:01 03/10/2017 JQuivey R.N. per protocol) (23:03 JQuivey R.N.) ORDER SHEET NOTES: [Electronically signed by Mj Orourke R.N. (01:03/11/2017)] [Electronically signed by Kristie Arnold.A.-Bubba (14:35 03/11/2017)] [Electronically locked/signed by Mj Orourke R.N. (:03/11/2017)]
--- NOTE | 2017-03-10 23:16 | ED ORDER SUMMARY ---
..... Patient: HIRO GLYNN OrderSheet [facility] VisitID: [id number] [place] [address] 31y, F Registration Date/Time: 03/10/2017 ORDER SHEET Weight: 85.7 kg (stated) Allergies: Bee stings, Shellfish-derived Products, Vicodin GENERAL ORDERS: MEDICATION ORDERS: IV FLUIDS: Pepcid IV 40 mg/50mL (NOW) (22:46 03/10/2017 Obi P.A.-C) (Ack 22:48 JQuivey R.N.) (22:54 JQuivey R.N.) IV NS : initial bolus none -, then 1000 mL/hr (NOW) (23:01 03/10/2017 JQuivey R.N. per protocol) (23:03 JQuivey R.N.) ORDER SHEET NOTES: [Electronically signed by Mj Orourke R.N. (01:03/11/2017)] [Electronically signed by Kristie Arnold.A.-Bubba (14:35 03/11/2017)] [Electronically locked/signed by Mj Orourke R.N. (:03/11/2017)]
--- NOTE | 2017-03-10 23:16 | ED NURSING NOTES ---
Clinical Report - Nurses [facility] [address] [place] [address] 03/10/2017 22:29 Patient: HIRO GLYNN TRIAGE Triage time 22:32. Acuity: LEVEL 3. Chief Complaint: POSSIBLE ALLERGIC REACTION and DIFFICULTY BREATHING 22:47. Alert. --22:47 Mj Orourke R.N. 22:32 03/10/17. BP: 141/85. HR: 97. RR: 16. O2 saturation: 99% on room air. Temp: 98 F (oral). Pain level now: 0/10. --22:47 Mj Orourke R.N. Weight: 85.7 kg stated. Height/Length: 64 inches Per Patient. BMI: 32.5. --22:47 Mj Orourke R.N. Medications Albuterol Sulfate Inhalation 2 puffs, PRN. --22:42 Mj Orourke R.N. Zoloft Oral 150mg , daily. --22:45 Mj Orourke R.N. Levothyroxine Sodium Oral 50 mcg, daily. --22:45 Mj Orourke R.N. Xanax Oral, as needed (pt unsure of dose ). --22:46 Mj Orourke R.N. BP med - pt can't remember name . --22:46 Mj Orourke R.N. The following entry was struck by Mj Orourke R.N., 22:44 (03/10/17) Reason - other. <<STRICKEN ENTRY-- Methadone HCl Oral (Tablet 10 mg) 1 tablet. --22:42 Mj Orourke R.N. --END STRIKE>>. Allergies Bee stings. Shellfish-derived Products. Vicodin. --22:42 Mj Orourke R.N. Medication/allergy information source: the patient. --22:47 Mj Orourke R.N. History Arrived by EMS. Historian: patient. Unaccompanied. Primary physician (None). Onset. (about 2044). ( Pt reports taking 2 tabs of Keflex about 1949 then about 2044 she started experiencing a burning sensation in her hand, then all over then began to have difficulty breathing took 50mg of Benadryl and called EMS). Treatment TOOL AND MACHINE MAINTAINER: EMS treatment TOOL AND MACHINE MAINTAINER verbally communicated. Medications given- (1 unit dose Albuterol HHN). IV fluid given (450ml NS infused TOOL AND MACHINE MAINTAINER). PAST MEDICAL HX: Immunizations: up-to-date. Last normal menstrual period- "Over a month". SOCIAL HX: No infectious disease exposure. ABUSE ASSESSMENT: No report of abuse. FALL RISK ASSESSMENT: Fall risk assessment completed. No fall risk identified. NUTRITIONAL RISK ASSESSMENT: The nutritional risk assessment revealed no deficiencies. FUNCTIONAL ASSESSMENT: Functional assessment: no impairments noted. LEARNING NEEDS ASSESSMENT: The learning needs assessment revealed no barriers. SKIN INTEGRITY ASSESSMENT: Skin integrity risk assessment completed. No skin integrity risk identified. --22:47 Mj Orourke R.N. PROBLEMS: Bronchitis. Dysfunctional Uterine Bleeding. Seizure Disorder. Depression. Allergic Reaction. UTI - Urinary Tract Infection. Polycystic Ovary Disease. Ovarian Cyst. --22:42 Mj Orourke R.N. Anxiety Reaction. --22:47 Mj Orourke R.N. ADDITIONAL SURGERIES: . --22:43 Mj Orourke R.N. Interventions ID band on patient. To treatment room. --22:47 Mj Orourke R.N. 22:13 03/10/2017 Site #1 started prior to arrival by EMS via IV in the left antecubital space with an 18g angiocath. --22:38 Mj Orourke R.N. PHYSICAL ASSESSMENT 22:41. To room via stretcher. Patient gowned. GENERAL / NEURO / PSYCH: Alert. Oriented X 4. HEENT: Mucous membranes are pink. RESPIRATORY: Respirations not labored. SKIN: Skin is intact, warm and dry. No skin rash. --22:41 Mj Orourke R.N. NURSING PROGRESS NOTES 22:41. Head of bed elevated. Two patient identifiers checked. Call light placed in reach. Side rails up x 1. Bed placed in lowest position. Brakes of bed on. Patient ready for evaluation- chart flagged. --22:41 Mj Orourke R.N. 22:52 03/10/2017 Started bag #1 1000 mL IV Fluids IV NS (Saline); at 1000 mL/hr over 1 hour(s) via site #1. (Started by EMS TOOL AND MACHINE MAINTAINER). --23:03 Mj Orourke R.N. 22:54 03/10/2017 Started 40 mg of Pepcid IVPB in bag #1 100 mL; at 200 mL/hr over 30 minute(s) via site #1 --22:54 Mj Orourke R.N. The patient is calm and resting quietly. RESPIRATORY: No respiratory distress. SKIN: Skin is warm and dry. Skin color within normal limits. --23:04 Mj Orourke R.N. 23:03 03/10/17. BP: 138/85. HR: 95. RR: 16. O2 saturation: 100% on room air. --23:04 Mj Orourke R.N. 23:24 03/10/2017 Pepcid IVPB Discontinued: bag #1 infused. Total amount infused: 100 mL. IV patency established. IV site checked: no pain, redness, or swelling. IV flushed thoroughly. --23:27 Mj Orourke R.N. 23:28 03/10/2017 IV Fluids IV NS Discontinued: bag #1 STOPPED upon discharge. Total amount infused: 825 mL. IV patency established. IV site checked: no pain, redness, or swelling. IV flushed thoroughly. --23:28 Mj Orourke R.N. 23:30. The patient is calm and resting quietly. RESPIRATORY: No respiratory distress. SKIN: Skin is warm and dry. Skin color within normal limits. --23:35 Mj Orourke R.N. DISPOSITION / DISCHARGE 23:27 03/10/2017 Site #1 removed upon discharge. Catheter intact. Bandage applied. --23:32 Mj Orourke R.N. Departure time: 23:32. Condition at departure: stable. No learning barriers present. Discharge instructions provided and reviewed with the patient. Reviewed medication(s) side effects, precautions, dosing and course information. Prescription(s) given to the patient. Patient verbalized understanding. Written instructions provided in Vietnamese. The patient was discharged home and accompanied by cash processor. She left the Emergency Department ambulatory and via private vehicle. Senior Data Analyst driving. FALL RISK ASSESSMENT: Fall risk assessment completed. No fall risk identified. --23:33 Mj Orourke R.N. 23:25 03/10/17. BP: 139/88. HR: 83. RR: 15. O2 saturation: 100% on room air. Pain level now: 0/10. --23:33 Mj Orourke R.N. Locked/Released at 03/11/2017 1:23 by Mj Orourke R.N.
--- NOTE | 2017-03-10 23:16 | ED NURSING NOTES ---
Clinical Report - Nurses [facility] [address] [address] 03/10/2017 22:29 Patient: HIRO GLYNN TRIAGE Triage time 22:32. Acuity: LEVEL 3. Chief Complaint: POSSIBLE ALLERGIC REACTION and DIFFICULTY BREATHING 22:47. Alert. --22:47 Mj Orourke R.N. 22:32 03/10/17. BP: 141/85. HR: 97. RR: 16. O2 saturation: 99% on room air. Temp: 98 F (oral). Pain level now: 0/10. --22:47 Mj Orourke R.N. Weight: 85.7 kg stated. Height/Length: 64 inches Per Patient. BMI: 32.5. --22:47 Mj Orourke R.N. Medications Albuterol Sulfate Inhalation 2 puffs, PRN. --22:42 Mj Orourke R.N. Zoloft Oral 150mg , daily. --22:45 Mj Orourke R.N. Levothyroxine Sodium Oral 50 mcg, daily. --22:45 Mj Orourke R.N. Xanax Oral, as needed (pt unsure of dose ). --22:46 Mj Orourke R.N. BP med - pt can't remember name . --22:46 Mj Orourke R.N. The following entry was struck by Mj Orourke R.N., 22:44 (03/10/17) Reason - other. <<STRICKEN ENTRY-- Methadone HCl Oral (Tablet 10 mg) 1 tablet. --22:42 Mj Orourke R.N. --END STRIKE>>. Allergies Bee stings. Shellfish-derived Products. Vicodin. --22:42 Mj Orourke R.N. Medication/allergy information source: the patient. --22:47 Mj Orourke R.N. History Arrived by EMS. Historian: patient. Unaccompanied. Primary physician (None). Onset. (about 2044). ( Pt reports taking 2 tabs of Keflex about 1949 then about 2044 she started experiencing a burning sensation in her hand, then all over then began to have difficulty breathing took 50mg of Benadryl and called EMS). Treatment AUTOMATION DRIVER: EMS treatment AUTOMATION DRIVER verbally communicated. Medications given- (1 unit dose Albuterol HHN). IV fluid given (450ml NS infused AUTOMATION DRIVER). PAST MEDICAL HX: Immunizations: up-to-date. Last normal menstrual period- "Over a month". SOCIAL HX: No infectious disease exposure. ABUSE ASSESSMENT: No report of abuse. FALL RISK ASSESSMENT: Fall risk assessment completed. No fall risk identified. NUTRITIONAL RISK ASSESSMENT: The nutritional risk assessment revealed no deficiencies. FUNCTIONAL ASSESSMENT: Functional assessment: no impairments noted. LEARNING NEEDS ASSESSMENT: The learning needs assessment revealed no barriers. SKIN INTEGRITY ASSESSMENT: Skin integrity risk assessment completed. No skin integrity risk identified. --22:47 Mj Orourke R.N. PROBLEMS: Bronchitis. Dysfunctional Uterine Bleeding. Seizure Disorder. Depression. Allergic Reaction. UTI - Urinary Tract Infection. Polycystic Ovary Disease. Ovarian Cyst. --22:42 Mj Orourke R.N. Anxiety Reaction. --22:47 Mj Orourke R.N. ADDITIONAL SURGERIES: . --22:43 Mj Orourke R.N. Interventions ID band on patient. To treatment room. --22:47 Mj Orourke R.N. 22:13 03/10/2017 Site #1 started prior to arrival by EMS via IV in the left antecubital space with an 18g angiocath. --22:38 Mj Orourke R.N. PHYSICAL ASSESSMENT 22:41. To room via stretcher. Patient gowned. GENERAL / NEURO / PSYCH: Alert. Oriented X 4. HEENT: Mucous membranes are pink. RESPIRATORY: Respirations not labored. SKIN: Skin is intact, warm and dry. No skin rash. --22:41 Mj Orourke R.N. NURSING PROGRESS NOTES 22:41. Head of bed elevated. Two patient identifiers checked. Call light placed in reach. Side rails up x 1. Bed placed in lowest position. Brakes of bed on. Patient ready for evaluation- chart flagged. --22:41 Mj Orourke R.N. 22:52 03/10/2017 Started bag #1 1000 mL IV Fluids IV NS (Saline); at 1000 mL/hr over 1 hour(s) via site #1. (Started by EMS AUTOMATION DRIVER). --23:03 Mj Orourke R.N. 22:54 03/10/2017 Started 40 mg of Pepcid IVPB in bag #1 100 mL; at 200 mL/hr over 30 minute(s) via site #1 --22:54 Mj Orourke R.N. The patient is calm and resting quietly. RESPIRATORY: No respiratory distress. SKIN: Skin is warm and dry. Skin color within normal limits. --23:04 Mj Orourke R.N. 23:03 03/10/17. BP: 138/85. HR: 95. RR: 16. O2 saturation: 100% on room air. --23:04 Mj Orourke R.N. 23:24 03/10/2017 Pepcid IVPB Discontinued: bag #1 infused. Total amount infused: 100 mL. IV patency established. IV site checked: no pain, redness, or swelling. IV flushed thoroughly. --23:27 Mj Orourke R.N. 23:28 03/10/2017 IV Fluids IV NS Discontinued: bag #1 STOPPED upon discharge. Total amount infused: 825 mL. IV patency established. IV site checked: no pain, redness, or swelling. IV flushed thoroughly. --23:28 Mj Orourke R.N. 23:30. The patient is calm and resting quietly. RESPIRATORY: No respiratory distress. SKIN: Skin is warm and dry. Skin color within normal limits. --23:35 Mj Orourke R.N. DISPOSITION / DISCHARGE 23:27 03/10/2017 Site #1 removed upon discharge. Catheter intact. Bandage applied. --23:32 Mj Orourke R.N. Departure time: 23:32. Condition at departure: stable. No learning barriers present. Discharge instructions provided and reviewed with the patient. Reviewed medication(s) side effects, precautions, dosing and course information. Prescription(s) given to the patient. Patient verbalized understanding. Written instructions provided in Vietnamese. The patient was discharged home and accompanied by hot plate plywood press offbearer. She left the Emergency Department ambulatory and via private vehicle. Block Captain driving. FALL RISK ASSESSMENT: Fall risk assessment completed. No fall risk identified. --23:33 Mj Orourke R.N. 23:25 03/10/17. BP: 139/88. HR: 83. RR: 15. O2 saturation: 100% on room air. Pain level now: 0/10. --23:33 Mj Orourke R.N. Locked/Released at 03/11/2017 1:23 by Mj Orourke R.N.
--- NOTE | 2017-03-11 14:35 | ED DISCHARGE INSTRUCTIONS ---
Patient: HIRO GLYNN General Instructions [facility] VisitID: [id number] [place] [address] 31y, F Registration Date/Time: 03/10/2017 Allergic reaction. Cellulitis of the right lower leg and left lower leg. INSTRUCTIONS (if you are taking keflex, take 500 mg at a time [facility] ). Warnings: Further evaluation is necessary. Prescription Medications: Bactrim DS 800 mg / 160 mg: take 1 tablet orally every 12 hours for 10 days. No refill. Substitution is permissible. OTC Medications: Take acetaminophen (Tylenol, Datril, etc.), ibuprofen (Advil, Nuprin, etc.) and Benadryl according to label instructions. Available over the counter. Follow-up: Follow up with your doctor as needed. ADDITIONAL INFORMATION Allergic Reaction,Generalized [Other] You are having an allergic reaction. This may cause an itchy rash, dizziness, fainting, trouble breathing or swallowing, and swelling of the face or other parts of the body. This can be caused by exposure to something in your surroundings that you have become sensitive to. This could be due to medicine or food. This could also be due to something you put on your skin or in your hair or something in the air. Often it is not possible to find out exactly what has caused your reaction. The goal of today's treatment is to relieve symptoms. The rash will usually fade over several days, but can sometimes last up to two weeks. Home Care: 1) If you know what you are allergic to, avoid it because future reactions could be worse than this one. 2) Avoid tight clothing and anything that heats up your skin (hot showers/baths, direct sunlight) since heat will make itching worse. 3) An ice pack will relieve local areas of intense itching and redness. Lanacaine cream or Solarcaine spray (or other product containing "benzocaine", available without a prescription) will reduce the itching. 4) Oral Benadryl (diphenhydramine) is an antihistamine available at drug and grocery stores. Unless a prescription antihistamine was given, Benadryl may be used to reduce itching if large areas of the skin are involved. Use lower doses during the daytime and higher doses at bedtime since the drug may make you sleepy. [NOTE: Do not use Benadryl if you have glaucoma or if you are a man with trouble urinating due to an enlarged prostate.] Claritin (loratidine) is an antihistamine that causes less drowsiness and is a good alternative for daytime use. Follow Up Follow Up with your doctor or this facility in two days if your symptoms do not continue to improve. If you had a severe reaction today, or if you have had several mild-moderate allergic reactions in the past, ask your doctor about allergy testing to find out what you are allergic to. If your reaction included dizziness, fainting or trouble breathing or swallowing, ask your doctor about carrying an Allergy Kit (injectable epinephrine) for home use. Get Prompt Medical Attention if any of the following occur: -- Trouble breathing or swallowing -- New or worse swelling in the face, eyelids, lips, mouth, tongue or throat -- Dizziness, weakness or fainting Cellulitis You have an infection of the skin known as cellulitis. This usually starts with a scrape, cut, insect bite, blister or other opening in the skin which becomes infected. This is a serious condition. It must be watched closely to be sure the infection is not spreading. With antibiotic treatment, the size of the red area will gradually shrink in size until the skin returns to normal. This will take 7-10 days. The red area should never increase in size once the antibiotic medicine has been started. Occasionally, an infection will be resistant to one antibiotic and another one will have to be used. Home Care: 1) Limit the use of the affected part, since excess movement can cause the infection to spread. 2) If the infection is on your leg, walk as little as possible during the first few days of the treatment. Keep your leg elevated while sitting. This will reduce swelling. 3) Take all of the antibiotic medicine exactly as directed until it is gone. Be careful not to miss any doses, especially during the first seven days. Follow Up with your doctor or this facility as directed. Check the infected area daily for the warning signs listed below. Get Prompt Medical Attention if any of the following occur: -- Spreading area of redness -- Increasing swelling or pain -- Appearance of pus or drainage -- Fever over 100.4 F (38.0 C) oral, or over 101.4 F (38.6 C) rectal, after two days on antibiotics Sulfamethoxazole, Trimethoprim Oral tablet What is this medicine? SULFAMETHOXAZOLE; TRIMETHOPRIM or SMX-TMP (suhl fuh meth OK eloina zohl; trye METH oh prim) is a combination of a sulfonamide antibiotic and a second antibiotic, trimethoprim. It is used to treat or prevent certain kinds of bacterial infections. It will not work for colds, flu, or other viral infections. How should I use this medicine? Take this medicine by mouth with a full glass of water. Follow the directions on the prescription label. Take your medicine at regular intervals. Do not take it more often than directed. Do not skip doses or stop your medicine early. Talk to your brass pourer regarding the use of this medicine in children. Special care may be needed. This medicine has been used in children as young as 2 months of age. What side effects may I notice from receiving this medicine? Side effects that you should report to your doctor or health special needs caregiver as soon as possible: allergic reactions like skin rash or hives, swelling of the face, lips, or tongue breathing problems fever or chills, sore throat irregular heartbeat, chest pain joint or muscle pain pain or difficulty passing urine red pinpoint spots on skin redness, blistering, peeling or loosening of the skin, including inside the mouth unusual bleeding or bruising unusually weak or tired yellowing of the eyes or skin Side effects that usually do not require medical attention (report to your doctor or health special needs caregiver if they continue or are bothersome): diarrhea dizziness headache loss of appetite nausea, vomiting nervousness What may interact with this medicine? Do not take this medicine with any of the following medications: aminobenzoate potassium dofetilide metronidazole This medicine may also interact with the following medications: ARLETTE inhibitors like benazepril, enalapril, lisinopril, and ramipril cyclosporine digoxin diuretics indomethacin medicines for diabetes methenamine methotrexate phenytoin potassium supplements pyrimethamine sulfinpyrazone tricyclic antidepressants warfarin What if I miss a dose? If you miss a dose, take it as soon as you can. If it is almost time for your next dose, take only that dose. Do not take double or extra doses. Where should I keep my medicine? Keep out of the reach of children. Store at room temperature between 20 to 25 degrees C (68 to 77 degrees F). Protect from light. Throw away any unused medicine after the expiration date. What should I tell my health care provider before I take this medicine? They need to know if you have any of these conditions: anemia asthma being treated with anticonvulsants if you frequently drink alcohol containing drinks kidney disease liver disease low level of folic acid or [id number] dehydrogenase poor nutrition or malabsorption porphyria severe allergies thyroid disorder an unusual or allergic reaction to sulfamethoxazole, trimethoprim, sulfa drugs, other medicines, foods, dyes, or preservatives or trying to get breast-feeding What should I watch for while using this medicine? Tell your doctor or health special needs caregiver if your symptoms do not improve. Drink several glasses of water a day to reduce the risk of kidney problems. Do not treat diarrhea with over the counter products. Contact your doctor if you have diarrhea that lasts more than 2 days or if it is severe and watery. This medicine can make you more sensitive to the sun. Keep out of the sun. If you cannot avoid being in the sun, wear protective clothing and use a sunscreen. Do not use sun lamps or tanning beds/booths. You have been given the following additional information: Allergic Reaction, Other (General) Cellulitis Sulfamethoxazole, Trimethoprim Oral tablet (Electronically signed by Kristie Arnold P.A.-C 03/11/2017 14:35)
--- NOTE | 2017-03-11 14:35 | ED MAR SUMMARY ---
..... Medication Administration Record [facility] [address] [place] [address] Patient: HIRO GLYNN Visit ID: [id number] 31y, F Weight: 85.7 kg Height/Length: 64 in BMI: 32.5 ALLERGIES: Bee stings, Shellfish-derived Products, Vicodin Start 22:52 03/10/2017 Mj Ororuke, R.N., Stop 23:28 03/10/2017 Mj Orourke R.N. Medication Administered: IV NS (SALINE), Dose: IV Fluids over 1 hour(s), Rate: 1000 mL/hr, Dispensed: 1000 mL bag, Site: #1 left AC. Medication Ordered: IV NS : initial bolus none -, then 1000 mL/hr (NOW). Start 22:54 03/10/2017 Mj Orourke, R.N., Stop 23:24 03/10/2017 Mj Orourke, R.N. Medication Administered: PEPCID [IVPB], Dose: 40 mg IVPB over 30 minute(s), Rate: 200 mL/hr, Dispensed: 100 mL bag, Site: #1 left AC. Medication Ordered: Pepcid IV 40 mg/50mL (NOW).
--- NOTE | 2017-03-11 14:35 | ED MAR SUMMARY ---
..... Medication Administration Record [facility] [address] [place] [address] Patient: HIRO GLYNN Visit ID: [id number] 31y, F Weight: 85.7 kg Height/Length: 64 in BMI: 32.5 ALLERGIES: Bee stings, Shellfish-derived Products, Vicodin Start 22:52 03/10/2017 Mj Orourke, R.N., Stop 23:28 03/10/2017 Mj Orourke R.N. Medication Administered: IV NS (SALINE), Dose: IV Fluids over 1 hour(s), Rate: 1000 mL/hr, Dispensed: 1000 mL bag, Site: #1 left AC. Medication Ordered: IV NS : initial bolus none -, then 1000 mL/hr (NOW). Start 22:54 03/10/2017 Mj Orourke, R.N., Stop 23:24 03/10/2017 Mj Orourke, R.N. Medication Administered: PEPCID [IVPB], Dose: 40 mg IVPB over 30 minute(s), Rate: 200 mL/hr, Dispensed: 100 mL bag, Site: #1 left AC. Medication Ordered: Pepcid IV 40 mg/50mL (NOW).
--- NOTE | 2017-03-11 14:35 | ED DISCHARGE INSTRUCTIONS ---
Patient: HIRO GLYNN General Instructions [facility] VisitID: [id number] [place] [address] 31y, F Registration Date/Time: 03/10/2017 Allergic reaction. Cellulitis of the right lower leg and left lower leg. INSTRUCTIONS (if you are taking keflex, take 500 mg at a time [facility] ). Warnings: Further evaluation is necessary. Prescription Medications: Bactrim DS 800 mg / 160 mg: take 1 tablet orally every 12 hours for 10 days. No refill. Substitution is permissible. OTC Medications: Take acetaminophen (Tylenol, Datril, etc.), ibuprofen (Advil, Nuprin, etc.) and Benadryl according to label instructions. Available over the counter. Follow-up: Follow up with your doctor as needed. ADDITIONAL INFORMATION Allergic Reaction,Generalized [Other] You are having an allergic reaction. This may cause an itchy rash, dizziness, fainting, trouble breathing or swallowing, and swelling of the face or other parts of the body. This can be caused by exposure to something in your surroundings that you have become sensitive to. This could be due to medicine or food. This could also be due to something you put on your skin or in your hair or something in the air. Often it is not possible to find out exactly what has caused your reaction. The goal of today's treatment is to relieve symptoms. The rash will usually fade over several days, but can sometimes last up to two weeks. Home Care: 1) If you know what you are allergic to, avoid it because future reactions could be worse than this one. 2) Avoid tight clothing and anything that heats up your skin (hot showers/baths, direct sunlight) since heat will make itching worse. 3) An ice pack will relieve local areas of intense itching and redness. Lanacaine cream or Solarcaine spray (or other product containing "benzocaine", available without a prescription) will reduce the itching. 4) Oral Benadryl (diphenhydramine) is an antihistamine available at drug and grocery stores. Unless a prescription antihistamine was given, Benadryl may be used to reduce itching if large areas of the skin are involved. Use lower doses during the daytime and higher doses at bedtime since the drug may make you sleepy. [NOTE: Do not use Benadryl if you have glaucoma or if you are a man with trouble urinating due to an enlarged prostate.] Claritin (loratidine) is an antihistamine that causes less drowsiness and is a good alternative for daytime use. Follow Up Follow Up with your doctor or this facility in two days if your symptoms do not continue to improve. If you had a severe reaction today, or if you have had several mild-moderate allergic reactions in the past, ask your doctor about allergy testing to find out what you are allergic to. If your reaction included dizziness, fainting or trouble breathing or swallowing, ask your doctor about carrying an Allergy Kit (injectable epinephrine) for home use. Get Prompt Medical Attention if any of the following occur: -- Trouble breathing or swallowing -- New or worse swelling in the face, eyelids, lips, mouth, tongue or throat -- Dizziness, weakness or fainting Cellulitis You have an infection of the skin known as cellulitis. This usually starts with a scrape, cut, insect bite, blister or other opening in the skin which becomes infected. This is a serious condition. It must be watched closely to be sure the infection is not spreading. With antibiotic treatment, the size of the red area will gradually shrink in size until the skin returns to normal. This will take 7-10 days. The red area should never increase in size once the antibiotic medicine has been started. Occasionally, an infection will be resistant to one antibiotic and another one will have to be used. Home Care: 1) Limit the use of the affected part, since excess movement can cause the infection to spread. 2) If the infection is on your leg, walk as little as possible during the first few days of the treatment. Keep your leg elevated while sitting. This will reduce swelling. 3) Take all of the antibiotic medicine exactly as directed until it is gone. Be careful not to miss any doses, especially during the first seven days. Follow Up with your doctor or this facility as directed. Check the infected area daily for the warning signs listed below. Get Prompt Medical Attention if any of the following occur: -- Spreading area of redness -- Increasing swelling or pain -- Appearance of pus or drainage -- Fever over 100.4 F (38.0 C) oral, or over 101.4 F (38.6 C) rectal, after two days on antibiotics Sulfamethoxazole, Trimethoprim Oral tablet What is this medicine? SULFAMETHOXAZOLE; TRIMETHOPRIM or SMX-TMP (suhl fuh meth OK eloina zohl; trye METH oh prim) is a combination of a sulfonamide antibiotic and a second antibiotic, trimethoprim. It is used to treat or prevent certain kinds of bacterial infections. It will not work for colds, flu, or other viral infections. How should I use this medicine? Take this medicine by mouth with a full glass of water. Follow the directions on the prescription label. Take your medicine at regular intervals. Do not take it more often than directed. Do not skip doses or stop your medicine early. Talk to your agency legal counsel regarding the use of this medicine in children. Special care may be needed. This medicine has been used in children as young as 2 months of age. What side effects may I notice from receiving this medicine? Side effects that you should report to your doctor or health ambulatory care coordinator as soon as possible: allergic reactions like skin rash or hives, swelling of the face, lips, or tongue breathing problems fever or chills, sore throat irregular heartbeat, chest pain joint or muscle pain pain or difficulty passing urine red pinpoint spots on skin redness, blistering, peeling or loosening of the skin, including inside the mouth unusual bleeding or bruising unusually weak or tired yellowing of the eyes or skin Side effects that usually do not require medical attention (report to your doctor or health ambulatory care coordinator if they continue or are bothersome): diarrhea dizziness headache loss of appetite nausea, vomiting nervousness What may interact with this medicine? Do not take this medicine with any of the following medications: aminobenzoate potassium dofetilide metronidazole This medicine may also interact with the following medications: ARLETTE inhibitors like benazepril, enalapril, lisinopril, and ramipril cyclosporine digoxin diuretics indomethacin medicines for diabetes methenamine methotrexate phenytoin potassium supplements pyrimethamine sulfinpyrazone tricyclic antidepressants warfarin What if I miss a dose? If you miss a dose, take it as soon as you can. If it is almost time for your next dose, take only that dose. Do not take double or extra doses. Where should I keep my medicine? Keep out of the reach of children. Store at room temperature between 20 to 25 degrees C (68 to 77 degrees F). Protect from light. Throw away any unused medicine after the expiration date. What should I tell my health care provider before I take this medicine? They need to know if you have any of these conditions: anemia asthma being treated with anticonvulsants if you frequently drink alcohol containing drinks kidney disease liver disease low level of folic acid or [id number] dehydrogenase poor nutrition or malabsorption porphyria severe allergies thyroid disorder an unusual or allergic reaction to sulfamethoxazole, trimethoprim, sulfa drugs, other medicines, foods, dyes, or preservatives or trying to get breast-feeding What should I watch for while using this medicine? Tell your doctor or health ambulatory care coordinator if your symptoms do not improve. Drink several glasses of water a day to reduce the risk of kidney problems. Do not treat diarrhea with over the counter products. Contact your doctor if you have diarrhea that lasts more than 2 days or if it is severe and watery. This medicine can make you more sensitive to the sun. Keep out of the sun. If you cannot avoid being in the sun, wear protective clothing and use a sunscreen. Do not use sun lamps or tanning beds/booths. You have been given the following additional information: Allergic Reaction, Other (General) Cellulitis Sulfamethoxazole, Trimethoprim Oral tablet (Electronically signed by Kristie Arnold P.A.-C 03/11/2017 14:35)
--- NOTE | 2017-03-11 14:35 | ED MED RECONCILIATION SUMMARY ---
Patient: HIRO GLYNN Medication Reconciliation Report [facility] VisitID: [id number] [place] [address] 31y, F Registration Date/Time: 03/10/2017 Weight: 85.7 kg Height/Length: 64 in. BMI: 32.5 ALLERGIES: Bee stings, Shellfish-derived Products, Vicodin The patient's Home Medications are listed below: THE FOLLOWING MEDICATIONS NEED TO BE RECONCILED: Albuterol Sulfate Inhalation 2 puffs, PRN BP med - pt can't remember name Levothyroxine Sodium Oral 50 mcg, daily Xanax Oral, pt unsure of dose Zoloft Oral 150mg , daily The source(s) of the original Home Medication information: patient The following Medications were given to the patient in the Emergency Department: Pepcid [IVPB] IVPB bolus 0, then 40 mg 200 mL/hr, administered: 03/10/2017 10:54:00 PM IV NS IV Fluids bolus 0, then 1000 mL/hr, administered: 03/10/2017 10:52:00 PM The following Medications were prescribed to the patient: Take acetaminophen (Tylenol, Datril, etc.), ibuprofen (Advil, Nuprin, etc.) and Benadryl according to label instructions. Available over the counter. -- Kristie Arnold, P.A.-C Bactrim DS 800 mg / 160 mg: take 1 tablet orally every 12 hours for 10 days. No refill. Substitution is permissible. -- Kristie Arnold P.A.-C
--- NOTE | 2017-03-11 14:35 | ED MED RECONCILIATION SUMMARY ---
Patient: HIRO GLYNN Medication Reconciliation Report [facility] VisitID: [id number] [place] [address] 31y, F Registration Date/Time: 03/10/2017 Weight: 85.7 kg Height/Length: 64 in. BMI: 32.5 ALLERGIES: Bee stings, Shellfish-derived Products, Vicodin The patient's Home Medications are listed below: THE FOLLOWING MEDICATIONS NEED TO BE RECONCILED: Albuterol Sulfate Inhalation 2 puffs, PRN BP med - pt can't remember name Levothyroxine Sodium Oral 50 mcg, daily Xanax Oral, pt unsure of dose Zoloft Oral 150mg , daily The source(s) of the original Home Medication information: patient The following Medications were given to the patient in the Emergency Department: Pepcid [IVPB] IVPB bolus 0, then 40 mg 200 mL/hr, administered: 03/10/2017 10:54:00 PM IV NS IV Fluids bolus 0, then 1000 mL/hr, administered: 03/10/2017 10:52:00 PM The following Medications were prescribed to the patient: Take acetaminophen (Tylenol, Datril, etc.), ibuprofen (Advil, Nuprin, etc.) and Benadryl according to label instructions. Available over the counter. -- Kristie Arnold, P.A.-C Bactrim DS 800 mg / 160 mg: take 1 tablet orally every 12 hours for 10 days. No refill. Substitution is permissible. -- Kristie Arnold P.A.-C
== END 2017-03-10 23:32 | disposition home or self-care (01) ==
LOC: ED SRH 22:27
DX: L03.115 Cellulitis of right lower limb (principal); L03.116 Cellulitis of left lower limb; T36.1X5A Adverse effect of cephalosporins and other beta-lactam antibiotics, initial encounter; G40.909 Epilepsy, unspecified, not intractable, without status epilepticus; Z79.899 Other long term (current) drug therapy; Z88.5 Allergy status to narcotic agent; Z91.030 Bee allergy status; Z91.013 Allergy to seafood

== ENCOUNTER 2017-03-11 16:19 | Emergency (ER) | payer OTHER ==
--- NOTE | 2017-03-11 17:20 | DIAGNOSTIC IMAGING REPORT ---
PROCEDURE: CT HEAD WITHOUT CONTRAST INDICATION: Right-sided weakness. TECHNIQUE: Noncontrast axial images with sagittal and coronal reformations. COMPARISON: Head CT 12/26/2014. FINDINGS: Normal sulci and ventricular system. New small hypodensities of the left frontal, temporal and parietal lobes with mild mass effect, minor compression of the left lateral ventricle but no evidence of hemorrhage. There is some cortical sparring of some of these hypodensities. No evidence of radiodense MCA. Mastoids and sinuses are clear. IMPRESSION: 1. Multiple new left cerebral hypodensities with minor mass effect most consistent with an acute CVA. No hemorrhage. 2. Findings discussed with Dr. Yu at 04:49 p.m., [place] Standard Time
--- NOTE | 2017-03-11 22:46 | DIAGNOSTIC IMAGING REPORT ---
PROCEDURE: CTA HEAD AND NECK INDICATION: CVA TECHNIQUE: 104 ml of Isovue 370 injected intravenously and axial images were obtained from the vertex through the upper mediastinum with 3D sagittal and coronal MIP reconstructions. COMPARISON: Head CT 03/11/2017. FINDINGS: AORTIC ARCH: Normal. No atherosclerosis. RIGHT CAROTID SYSTEM: Normal common carotid, bifurcation, ICA and ECA. LEFT CAROTID SYSTEM: 1.2 cm long eccentric noncalcified atherosclerosis of the proximal ICA with less than 50% stenosis. VERTEBROBASILAR SYSTEM: Normal INTRACRANIAL ANTERIOR CIRCULATION: Absent right A1 segment. INTRACRANIAL POSTERIOR CIRCULATION: Normal. Right posterior communicating artery present. IMPRESSION: 1. 1.2 cm long eccentric noncalcified atherosclerosis of the proximal left ICA 2. Absent A1 segment of the right anterior cerebral artery, a normal variant. 3. Results discussed with Dr. Yu All CT scans at this facility use dose modulation, iterative reconstruction, and/or weight-based dosing when appropriate to reduce radiation dose to as low as reasonably achievable.
--- NOTE | 2017-03-11 23:01 | Progress Note ---
Subjective General Admission History and Physical Examination Patient Name: Ashley Lozano Date of Emergency Room Evaluation: March 11, 2017 Primary Care Provider: None Code Status: FULL CODE Room: 13 Status: ER Patient SUBJECTIVE Historian: Patient and boyfriend Reliability: Fair Chief Complaint: Right arm weakness History of Present Illness: The patient is a 31-year-old white female with a significant past medical history of depression who presented to [facility] emergency department on the day of admission secondary to complaints of right arm weakness. The history of present was began on the evening of the day prior to admission. The patient experienced right arm weakness without associated right leg weakness or ambulatory problems.. No other history of visual disturbances, difficulty swallowing, or impaired speech. There is question of right arm numbness. [facility] ER evaluation was consistent with left-sided CVA with right-sided weakness. CT scan showed multiple left-sided [employer] lesions consistent with multiple small CVA. Subsequent CTA of head/neck showed findings of left IC stenosis with mobile plaque present. The case was discussed with Dr. Loving ([facility] neurology) who felt the patient would be best served transferred to [facility] for further evaluation and treatment. COBRA form was completed by Dr. Alana Yu. Risk and benefits of transfer were discussed with patient. Arrangements were made to transfer to [facility] by ER staff. PAST MEDICAL HISTORY Illnesses: 1. Depression 2. Illicit drug use-methamphetamine 3. Polycystic ovary disease 4. Generalized anxiety disorder 5. Asthma Allergies: 1. Vicodin 2. Shellfish 3. Bee stings Medications: 1. Zoloft 150 mg by mouth daily 2. Synthroid 0.05 mg by mouth daily 3. Xanax dosage unknown 4. Albuterol 2 puffs every 6 hours when necessary shortness of breath Surgery: 1. Injuries: 1. No significant Hospitalizations: 1. None FAMILY HISTORY Parents: 1. Father, , heart disease, 2. Mother, , heart disease Siblings: 1. None Children: 1. Male, living, 15, healthy Other significant family history: None SOCIAL HISTORY 1. Marital Status: Single 2. Advent: None 3. Education: High school 4. 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 Occupational health exposures: Loud noises, dust, heavy lifting HABITS 1. Tobacco: 5 pack years, smokes one half pack per day 2. Drugs: Patient states none, tox screen positive for methamphetamine 3. Alcohol: None 4. Caffeine: Coffee 1 cup per day, Tea 1 cup per day, soft drinks 2 cans per day HEALTH SUPERVISION Item/Test 1. Not reviewed IMMUNIZATIONS: 1. Pneumococcal: No previous 2. Influenza: Unknown 3. Tetanus: Unknown ADVANCED DIRECTIVES: 1. Living well: No 2. POLST: No 3. Code Status: FULL CODE 4. Durable Power Scrapper Health care: No 5. Donor card: Yes REVIEW OF SYSTEMS Remarkable for those things stated in the history of present illness and past medical history. Seventeen point review of system completed with the following notable findings: General: Fatigue, pain, weakness Skin: Dryness, rash, skin changes Ears: Earache Mouth: Dental problems Respiratory: Shortness of breath, asthma Cardiovascular: Chest tightness, ankle swelling, hypertension, shortness of breath with exertion Genitourinary: Nocturia Neurological: Seizure disorder, headaches, sensation changes, paralysis Endocrine: Heat/cold intolerance, excessive urination Psychological: Depression, anxiety Physical Exam General Appearance Alert, Oriented X3, Cooperative, No acute distress HEENT Atraumatic, PERRLA, EOMI, Moist mucous membranes Neurological Cranial nerves intact, weakness right upper extremity Psych/Mental Status Mental status normal, Mood normal LAB Results Laboratory Tests 03/11 03/11 03/11 2245 [id number] [id number] Chemistry Plasma Sodium (136 - 145 mmol/L) 140 Plasma Potassium (3.5 - 5.1 mmol/L) 4.0 Plasma Chloride (98 - 107 mmol/L) 105 CO2 (Enzymatic) (21 - 32 mmol/L) 26 BUN (7 - 18 mg/dL) 13 Creatinine (0.6 - 1.3 mg/dL) 0.6 Est GFR ( Amer) (mL/min) >60 Est GFR (Non-Af Amer) (mL/min) >60 Glucose (70 - 110 mg/dL) 90 Plasma Calcium (8.5 - 10.1 mg/dL) 8.8 Plasma Magnesium (1.8 - 2.4 mg/dL) 2.0 Total Bilirubin (0.0 - 1.0 mg/dL) 0.3 AST (15 - 37 U/L) 18 ALT (12 - 78 U/L) 31 Alkaline Phosphatase (46 - 116 U/L) 111 Creatine Kinase (24 - 260 U/L) 72 Troponin (0.00 - 1.5 ng/mL) 0.08 Total Protein (6.4 - 8.2 g/dL) 7.3 Albumin (3.3 - 5.0 g/dL) 3.4 Coagulation INR (0.8 - 1.2) 0.9 Hematology WBC (4.5 - 11.5 K/uL) 14.7 RBC (4.00 - 5.20 M/uL) 4.25 Hgb (12.0 - 16.0 gm/dL) 12.6 Hct (36.0 - 46.0 %) 38.2 MCV (80 - 100 fL) 90 MCH (26 - 34 pg) 30 RDW (11.6 - 14.8 %) 13.7 Neut % (Auto) (50 - 75 %) 80.0 Lymph % (Auto) (25 - 40 %) 15.1 [place] % (Auto) (3 - 14 %) 2.9 Eos % (Auto) (0 - 4 %) 1.7 Baso % (Auto) (0 - 2 %) 0.3 Plt Count, EDTA (150 - 400 K/uL) 322 PUBS MCHC (31 - 37 g/dL) 33 Toxicology Urine Opiates Screen Pending Urine Methadone Screen Pending Ur Barbiturates Screen Pending U Amphetamin/Meth Scrn Pending MDMA (Ecstasy) Screen Pending U Benzodiazepines Scrn Pending Urine Cocaine Screen Pending U Cannabinoids Screen Pending Urines Urine Color Pending Urine Appearance Pending Urine pH Pending Ur Specific Wall Pending Urine Protein Pending Urine Ketones Pending Urine Blood Pending Urine Nitrite Pending Urine Bilirubin Pending Urine Urobilinogen Pending Ur Leukocyte Esterase Pending Urine RBC Pending Urine WBC Pending Ur Epithelial Cells Pending Urine Bacteria Pending Urine Glucose Pending Urine Test Pending Imaging CTA HEAD/NECK IMPRESSION: 1. 1.2 cm long eccentric noncalcified atherosclerosis of the proximal left ICA 2. Absent A1 segment of the right anterior cerebral artery, a normal variant. 3. Results discussed with Dr. Yu Dictated by: GERMAN ROSE MD D: JESSEE;03/11/[address] HEAD IMPRESSION: 1. Multiple new left cerebral hypodensities with minor mass effect most consistent with an acute CVA. No hemorrhage. 2. Findings discussed with Dr. Yu at 04:49 p.m., [place] Standard Time Dictated by: GERMAN ROSE MD D: JESSEE;03/11/17 1720 Assessment and Plan Problem List 1. CVA (cerebral vascular accident) Status Acute Onset Date 03/11/17 Plan -Patient presents with findings consistent with left-sided CVA with right-sided weakness -Multiple right-sided CVA -CTA shows possible unstable lesion left internal carotid artery -Case discussed with Dr. Loving ([facility] neurology) who recommends transfer for further evaluation at [facility] ([place]) -Dr. Loving recommends aspirin only at this time until patient reevaluated -We'll push radiological images to [facility] -Dr. Yu has completed COBRA form for transfer -Risk and benefits of transfer discussed with patient and boyfriend. Following this discussion the patient is in agreement with transfer. 2. Depression Status Chronic Onset Date Unknown Plan -Patient with history of depression -Continue outpatient medical regimen 3. Illicit drug use Status Acute Onset Date Unknown Plan -Patient with positive tox screen for amphetamines/methamphetamine -Patient denies history of illicit drug use -Follow up at [facility] with consideration of enrollment in treatment program post hospitalization as needed. -Monitor Current status: Fair, unstable Anticipated discharge date:-Patient discharge/transfer to [facility] for higher level of care Anticipated discharge placement: Home versus rehabilitation unit Patient care time: Time in chart review, patient interview, physical exam, CPOE, and care documentation: 70 mins Visit to patient today: 2 Complexity of care: High E&M Codes Admission: Inpt-High/[id number] Outpatient Consult: Comp-Moderate/[id number]
--- NOTE | 2017-03-11 23:01 | Progress Note ---
Subjective General Admission History and Physical Examination Patient Name: Ashley Lozano Date of Emergency Room Evaluation: March 11, 2017 Primary Care Provider: None Code Status: FULL CODE Room: 13 Status: ER Patient SUBJECTIVE Historian: Patient and boyfriend Reliability: Fair Chief Complaint: Right arm weakness History of Present Illness: The patient is a 31-year-old white female with a significant past medical history of depression who presented to [facility] emergency department on the day of admission secondary to complaints of right arm weakness. The history of present was began on the evening of the day prior to admission. The patient experienced right arm weakness without associated right leg weakness or ambulatory problems.. No other history of visual disturbances, difficulty swallowing, or impaired speech. There is question of right arm numbness. [facility] ER evaluation was consistent with left-sided CVA with right-sided weakness. CT scan showed multiple left-sided [employer] lesions consistent with multiple small CVA. Subsequent CTA of head/neck showed findings of left IC stenosis with mobile plaque present. The case was discussed with Dr. Loving ([facility] neurology) who felt the patient would be best served transferred to [facility] for further evaluation and treatment. COBRA form was completed by Dr. Alana Yu. Risk and benefits of transfer were discussed with patient. Arrangements were made to transfer to [facility] by ER staff. PAST MEDICAL HISTORY Illnesses: 1. Depression 2. Illicit drug use-methamphetamine 3. Polycystic ovary disease 4. Generalized anxiety disorder 5. Asthma Allergies: 1. Vicodin 2. Shellfish 3. Bee stings Medications: 1. Zoloft 150 mg by mouth daily 2. Synthroid 0.05 mg by mouth daily 3. Xanax dosage unknown 4. Albuterol 2 puffs every 6 hours when necessary shortness of breath Surgery: 1. Injuries: 1. No significant Hospitalizations: 1. None FAMILY HISTORY Parents: 1. Father, , heart disease, 2. Mother, , heart disease Siblings: 1. None Children: 1. Male, living, 15, healthy Other significant family history: None SOCIAL HISTORY 1. Marital Status: Single 2. Hinduism: None 3. Education: High school 4. 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 Occupational health exposures: Loud noises, dust, heavy lifting HABITS 1. Tobacco: 5 pack years, smokes one half pack per day 2. Drugs: Patient states none, tox screen positive for methamphetamine 3. Alcohol: None 4. Caffeine: Coffee 1 cup per day, Tea 1 cup per day, soft drinks 2 cans per day HEALTH SUPERVISION Item/Test 1. Not reviewed IMMUNIZATIONS: 1. Pneumococcal: No previous 2. Influenza: Unknown 3. Tetanus: Unknown ADVANCED DIRECTIVES: 1. Living well: No 2. POLST: No 3. Code Status: FULL CODE 4. Durable [employer] Health care: No 5. Donor card: Yes REVIEW OF SYSTEMS Remarkable for those things stated in the history of present illness and past medical history. Seventeen point review of system completed with the following notable findings: General: Fatigue, pain, weakness Skin: Dryness, rash, skin changes Ears: Earache Mouth: Dental problems Respiratory: Shortness of breath, asthma Cardiovascular: Chest tightness, ankle swelling, hypertension, shortness of breath with exertion Genitourinary: Nocturia Neurological: Seizure disorder, headaches, sensation changes, paralysis Endocrine: Heat/cold intolerance, excessive urination Psychological: Depression, anxiety Physical Exam General Appearance Alert, Oriented X3, Cooperative, No acute distress HEENT Atraumatic, PERRLA, EOMI, Moist mucous membranes Neurological Cranial nerves intact, weakness right upper extremity Psych/Mental Status Mental status normal, Mood normal LAB Results Laboratory Tests 03/11 03/11 03/11 2245 [id number] 1630 Chemistry Plasma Sodium (136 - 145 mmol/L) 140 Plasma Potassium (3.5 - 5.1 mmol/L) 4.0 Plasma Chloride (98 - 107 mmol/L) 105 CO2 (Enzymatic) (21 - 32 mmol/L) 26 BUN (7 - 18 mg/dL) 13 Creatinine (0.6 - 1.3 mg/dL) 0.6 Est GFR ( Amer) (mL/min) >60 Est GFR (Non-Af Amer) (mL/min) >60 Glucose (70 - 110 mg/dL) 90 Plasma Calcium (8.5 - 10.1 mg/dL) 8.8 Plasma Magnesium (1.8 - 2.4 mg/dL) 2.0 Total Bilirubin (0.0 - 1.0 mg/dL) 0.3 AST (15 - 37 U/L) 18 ALT (12 - 78 U/L) 31 Alkaline Phosphatase (46 - 116 U/L) 111 Creatine Kinase (24 - 260 U/L) 72 Troponin (0.00 - 1.5 ng/mL) 0.08 Total Protein (6.4 - 8.2 g/dL) 7.3 Albumin (3.3 - 5.0 g/dL) 3.4 Coagulation INR (0.8 - 1.2) 0.9 Hematology WBC (4.5 - 11.5 K/uL) 14.7 RBC (4.00 - 5.20 M/uL) 4.25 Hgb (12.0 - 16.0 gm/dL) 12.6 Hct (36.0 - 46.0 %) 38.2 MCV (80 - 100 fL) 90 MCH (26 - 34 pg) 30 RDW (11.6 - 14.8 %) 13.7 Neut % (Auto) (50 - 75 %) 80.0 Lymph % (Auto) (25 - 40 %) 15.1 Teller % (Auto) (3 - 14 %) 2.9 Eos % (Auto) (0 - 4 %) 1.7 Baso % (Auto) (0 - 2 %) 0.3 Plt Count, EDTA (150 - 400 K/uL) 322 PUBS MCHC (31 - 37 g/dL) 33 Toxicology Urine Opiates Screen Pending Urine Methadone Screen Pending Ur Barbiturates Screen Pending U Amphetamin/Meth Scrn Pending MDMA (Ecstasy) Screen Pending U Benzodiazepines Scrn Pending Urine Cocaine Screen Pending U Cannabinoids Screen Pending Urines Urine Color Pending Urine Appearance Pending Urine pH Pending Ur Specific [place] Pending Urine Protein Pending Urine Ketones Pending Urine Blood Pending Urine Nitrite Pending Urine Bilirubin Pending Urine Urobilinogen Pending Ur Leukocyte Esterase Pending Urine RBC Pending Urine WBC Pending Ur Epithelial Cells Pending Urine Bacteria Pending Urine Glucose Pending Urine Test Pending Imaging CTA HEAD/NECK IMPRESSION: 1. 1.2 cm long eccentric noncalcified atherosclerosis of the proximal left ICA 2. Absent A1 segment of the right anterior cerebral artery, a normal variant. 3. Results discussed with Dr. Yu Dictated by: GERMAN ROSE MD D: JESSEE;03/11/[address] HEAD IMPRESSION: 1. Multiple new left cerebral hypodensities with minor mass effect most consistent with an acute CVA. No hemorrhage. 2. Findings discussed with Dr. Yu at 04:49 p.m., [place] Standard Time Dictated by: GERMAN ROSE MD D: JESSEE;03/11/17 1720 Assessment and Plan Problem List 1. CVA (cerebral vascular accident) Status Acute Onset Date 03/11/17 Plan -Patient presents with findings consistent with left-sided CVA with right-sided weakness -Multiple right-sided CVA -CTA shows possible unstable lesion left internal carotid artery -Case discussed with Dr. Loving ([facility] neurology) who recommends transfer for further evaluation at [facility] ([place]) -Dr. Loving recommends aspirin only at this time until patient reevaluated -We'll push radiological images to [facility] -Dr. Yu has completed COBRA form for transfer -Risk and benefits of transfer discussed with patient and boyfriend. Following this discussion the patient is in agreement with transfer. 2. Depression Status Chronic Onset Date Unknown Plan -Patient with history of depression -Continue outpatient medical regimen 3. Illicit drug use Status Acute Onset Date Unknown Plan -Patient with positive tox screen for amphetamines/methamphetamine -Patient denies history of illicit drug use -Follow up at [facility] with consideration of enrollment in treatment program post hospitalization as needed. -Monitor Current status: Fair, unstable Anticipated discharge date:-Patient discharge/transfer to [facility] for higher level of care Anticipated discharge placement: Home versus rehabilitation unit Patient care time: Time in chart review, patient interview, physical exam, CPOE, and care documentation: 70 mins Visit to patient today: 2 Complexity of care: High E&M Codes Admission: Inpt-High/[id number] Outpatient Consult: Comp-Moderate/[id number]
--- NOTE | 2017-03-11 23:50 | ED CLINICAL REPORT ---
Clinical Report - Physicians/Mid Levels [facility] [address] [place] [address] 03/11/2017 16:21 Patient: HIRO GLYNN Time Seen: 16:39. Arrived- By private vehicle. Historian- patient. HISTORY OF PRESENT ILLNESS Chief Complaint: WEAKNESS. This started yesterday at about 2000 and is still present. The patient has had new onset of weakness of the right arm (severe). No numbness, tingling, impaired speech or swallowing or visual disturbance. No recent fall. No difficulty walking. (patient states "I cannot use my right arm".). At its maximum deficit described as severe. When seen in the E.D., described as severe. No dizziness, altered mental status, seizure or blackouts. Usually is alert and oriented X3 and has normal mobility. (The patient states she has never had any symptoms like this before. She states that onset was sudden last evening, but that she did not come in at that time because she thought the symptoms would just go away on their own. Patient has a history of questionable seizures, for which she has seen a neurologist in the past an states that eventually she was discharged from neurology, who stated that "nothing was wrong". Patient states that when she would have a seizure, she would not be awake, and was not sure what kind of movement she was making. Patient denies being under any particular stress recently. She denies IV drug abuse or any problems with her heart. Patient is not aware of any coagulopathies. Her mother and grandma have both had cardiac issues in their 50s, though patient is not sure what kind. She states her grandmother has also had a stroke. No one in the patient's family has had any CVAs or MIs at a young age.). Similar symptoms previously: None. Recent medical care: Not recently seen/assessed. REVIEW OF SYSTEMS No fever, headache, head injury, chest pain or difficulty breathing. No cough, sputum production, sore throat, abdominal pain or diarrhea. No black stools, difficulty with urination, skin rash, enlarged lymph nodes or joint pain. No vomiting, bloody stools or back pain. The patient has had mild nausea. All systems otherwise negative, except as recorded above. PAST HISTORY Problems: Anxiety Reaction. Abscess. Dysfunctional Uterine Bleeding. Seizure Disorder. Dizziness. Dental Pain. Depression. Lifestyle / Substance Problems. Polycystic Ovary Disease. Ovarian Cyst. Immunizations. LNMP - Last Normal Menstrual Period. Additional Surgeries: . Medications: Albuterol Sulfate Inhalation 2 puffs, PRN. BP med - pt can't remember name . Levothyroxine Sodium Oral 50 mcg, daily. Xanax Oral, as needed (pt unsure of dose ). Zoloft Oral 150mg , daily. Allergies: Bee stings. Shellfish-derived Products. Vicodin. SOCIAL HISTORY Never smoker. No alcohol use or drug use. ADDITIONAL NOTES The nursing notes have been reviewed. PHYSICAL EXAM Vital Signs: 03/11/2017 16:25 BP: 167/98. HR: 96. RR: 18. O2 saturation: 100%. Temp: 98.1 F. Have been reviewed. Appearance: Alert. No acute distress. (Pt appears mildly anxious.). Head: Head atraumatic. Eyes: Pupils equal, round and reactive to light. ENT: Normal ENT inspection. Airway intact. Neck: Normal inspection. CVS: Normal heart rate and rhythm. Heart sounds normal. Pulses normal. Respiratory: No respiratory distress. Breath sounds normal. Abdomen: Soft and nontender. Back: Normal inspection. No CVA tenderness. Skin: Skin warm and dry. Normal skin color. No rash. Normal skin turgor. Extremities: No lower extremity edema. Neuro: Alert. Speech normal. Cranial nerves normal (as tested). She has had localized weakness of the right arm (severe) and right hand (severe). No sensory deficit. (Patient is alert, but has an alternatively blunted than tearful affect. She answers questions coherently at times, but is easily distracted and answers trail off.). LABS, X-RAYS, AND EKG CTA Head: No hemorrhage, midline shift or fracture. Sinuses normal. No atrophy, hydrocephalus or bony abnormalities. Includes neck: Stenosis and thrombus partially occluding L ICA. Head CTA performed with contrast. The study was independently viewed by me, interpreted by the radiologist and contemporaneously by me and discussed with the radiologist. Prior studies were not available for comparison. CT Head: No bony abnormalities, no hemorrhage, no intracranial mass, no midline shift and no hydrocephalus. No atrophy. (Multiple hypodensities L frontal/temporal/parietal lobes.). Head CT performed without contrast. The study was independently viewed by me, interpreted by the radiologist and contemporaneously by me and discussed with the radiologist. Prior studies were not available for comparison. Laboratory Tests: CBC w Diff: (DOREEN: 03/11/2017 16:30) ( [facility] 03/11/2017 16:48) Final results Test Result Flag Units (Reference) WHITE BLOOD COUNT 14.7 H K/uL (4.5-11.5) RED BLOOD COUNT 4.25 M/uL (4.00-5.20) HEMOGLOBIN 12.6 gm/dL (12.0-16.0) HEMATOCRIT 38.2 % (36.0-46.0) MEAN CELL VOLUME 90 fL (80-100) MEAN CORPUSCULAR HGB 30 pg (26-34) MEAN CORPUSCULAR HGB CONC 33 g/dL (31-37) RED CELL DISTRIBUTION WIDTH 13.7 % (11.6-14.8) PLATELET COUNT 322 K/uL (150-400) NEUTROPHIL % 80.0 H % (50-75) LYMPH % 15.1 L % (25-40) MONO % 2.9 L % (3-14) EOSINOPHIL % 1.7 % (0-4) BASOPHIL % 0.3 % (0-2) PT with INR: (DOREEN: 03/11/2017 16:30) ( [facility] 03/11/2017 19:30) Final results Test Result Flag Units (Reference) INR 0.9 (0.8-1.2) Low Intensity Therapy: INR 1.5-2.0 PT range 18.5-23.1Mod.Intensity Therapy: INR 2.0-3.0 PT range 23.1-31.5High Intensity Therapy: INR 2.5-3.5 PT range 27.4-35.5High Intensity Therapy 2: INR 3.0-4.0 PT range 31.5-39.3 CHEM 13 PANEL: (DOREEN: 03/11/2017 16:30) ( [facility] 03/11/2017 17:00) Final results Test Result Flag Units (Reference) GLUCOSE 90 mg/dL (70-110) BUN 13 mg/dL (7-18) CREATININE 0.6 mg/dL (0.6-1.3) Estimated GFR >60 mL/min Estimated GFR- >60 mL/min Note: Persistent reduction over 3 months in eGFR<60 mL/min/1.73 m2 defines CKD. Patients with eGFR values>=60 mL/min/1.73 m2 may also have CKD if evidence ofpersistent proteinuria. Additional information may be foundat www.kidney.org. SODIUM 140 mmol/L (136-145) POTASSIUM 4.0 mmol/L (3.5-5.1) CHLORIDE 105 mmol/L (98-107) CARBON DIOXIDE 26 mmol/L (21-32) CALCIUM 8.8 mg/dL (8.5-10.1) TOTAL PROTEIN 7.3 g/dL (6.4-8.2) ALBUMIN 3.4 g/dL (3.3-5.0) BILIRUBIN, TOTAL 0.3 mg/dL (0.0-1.0) ALKALINE PHOSPHATASE 111 U/L (46-116) AST (SGOT) 18 U/L (15-37) ALT (SGPT) 31 U/L (12-78) CPK 72 U/L (24-260) MAGNESIUM 2.0 mg/dL (1.8-2.4) TROPONIN I 0.08 ng/mL (0.00-1.5) TROPONIN REFERENCE RANGE:<0.1 NEGATIVE0.1-1.5 INDETERMINANT>1.5 POSITIVE . Pulse Oximetry: 03/11/2017 16:25 O2 saturation: 100%. (FIO2 - room air). Interpretation: normal. PROGRESS AND PROCEDURES Course of Care: Pt was worked up for her sx, and found to have multiple L hemispheric lesions on CT scan. Labs showed a leukocytosis, and ultimately, a positive drug screen for methamphetamines. Case was discussed with Dr. Loving/neurology at [facility] in [place], and he requested a CTA of the head and neck to evaluate for dissection and carotid flow. This did show a L ICA thrombus, which was felt to likely have broken loose from elsewhere. Given the shower of clots in the left hemisphere as well as the left ICA thrombus, likely ectopic, and also in consideration of the patient's drug screen which was positive for methamphetamines, I felt that the likelihood of septic emboli from endocarditis was a real possibility. I had consulted Dr. Adamson at this point to admit the patient here, since [facility] in [facility] could not take the patient and [facility] was unsure that they would have a bed for the patient. However, with the probable ectopic clot it was agreed that the patient should go to a facility that can retrieve the clot if necessary and also, that can deal with the probable endocarditis at this patient has. Dr. Loving was reconsulted and he did readily accept the patient in transfer. I did also speak with the postpartum rn at [facility] to report the patient's case to him. Dr. Loving did state that we should hold off on anticoagulants at this time. Discussed case with on-call health care provider, ([facility]/neurology/[facility]/[place]). Reviewed test results and need for additional work-up. Agreed upon treatment plan. Patient and family counseled in person regarding the patient's serious condition, test results, diagnosis and need for transfer. Concerns were addressed. Old medical records reviewed. Disposition: Benefits, risks and alternatives to transfer explained to patient. Transferred to [facility]. Condition: critical. 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 TPA given and patient last known well 3 or more hours prior to administration. Patient arrived in the emergency department greater than 2 hours since time last known well. 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 (Electronically signed by Alana Yu MD 03/14/2017 5:49)
--- NOTE | 2017-03-11 23:50 | ED CLINICAL REPORT ---
Clinical Report - Physicians/Mid Levels [facility] [address] [place] [address] 03/11/2017 16:21 Patient: HIRO GLYNN Time Seen: 16:39. Arrived- By private vehicle. Historian- patient. HISTORY OF PRESENT ILLNESS Chief Complaint: WEAKNESS. This started yesterday at about 2000 and is still present. The patient has had new onset of weakness of the right arm (severe). No numbness, tingling, impaired speech or swallowing or visual disturbance. No recent fall. No difficulty walking. (patient states "I cannot use my right arm".). At its maximum deficit described as severe. When seen in the E.D., described as severe. No dizziness, altered mental status, seizure or blackouts. Usually is alert and oriented X3 and has normal mobility. (The patient states she has never had any symptoms like this before. She states that onset was sudden last evening, but that she did not come in at that time because she thought the symptoms would just go away on their own. Patient has a history of questionable seizures, for which she has seen a neurologist in the past an states that eventually she was discharged from neurology, who stated that "nothing was wrong". Patient states that when she would have a seizure, she would not be awake, and was not sure what kind of movement she was making. Patient denies being under any particular stress recently. She denies IV drug abuse or any problems with her heart. Patient is not aware of any coagulopathies. Her mother and grandma have both had cardiac issues in their 50s, though patient is not sure what kind. She states her grandmother has also had a stroke. No one in the patient's family has had any CVAs or MIs at a young age.). Similar symptoms previously: None. Recent medical care: Not recently seen/assessed. REVIEW OF SYSTEMS No fever, headache, head injury, chest pain or difficulty breathing. No cough, sputum production, sore throat, abdominal pain or diarrhea. No black stools, difficulty with urination, skin rash, enlarged lymph nodes or joint pain. No vomiting, bloody stools or back pain. The patient has had mild nausea. All systems otherwise negative, except as recorded above. PAST HISTORY Problems: Anxiety Reaction. Abscess. Dysfunctional Uterine Bleeding. Seizure Disorder. Dizziness. Dental Pain. Depression. Lifestyle / Substance Problems. Polycystic Ovary Disease. Ovarian Cyst. Immunizations. LNMP - Last Normal Menstrual Period. Additional Surgeries: . Medications: Albuterol Sulfate Inhalation 2 puffs, PRN. BP med - pt can't remember name . Levothyroxine Sodium Oral 50 mcg, daily. Xanax Oral, as needed (pt unsure of dose ). Zoloft Oral 150mg , daily. Allergies: Bee stings. Shellfish-derived Products. Vicodin. SOCIAL HISTORY Never smoker. No alcohol use or drug use. ADDITIONAL NOTES The nursing notes have been reviewed. PHYSICAL EXAM Vital Signs: 03/11/2017 16:25 BP: 167/98. HR: 96. RR: 18. O2 saturation: 100%. Temp: 98.1 F. Have been reviewed. Appearance: Alert. No acute distress. (Pt appears mildly anxious.). Head: Head atraumatic. Eyes: Pupils equal, round and reactive to light. ENT: Normal ENT inspection. Airway intact. Neck: Normal inspection. CVS: Normal heart rate and rhythm. Heart sounds normal. Pulses normal. Respiratory: No respiratory distress. Breath sounds normal. Abdomen: Soft and nontender. Back: Normal inspection. No CVA tenderness. Skin: Skin warm and dry. Normal skin color. No rash. Normal skin turgor. Extremities: No lower extremity edema. Neuro: Alert. Speech normal. Cranial nerves normal (as tested). She has had localized weakness of the right arm (severe) and right hand (severe). No sensory deficit. (Patient is alert, but has an alternatively blunted than tearful affect. She answers questions coherently at times, but is easily distracted and answers trail off.). LABS, X-RAYS, AND EKG CTA Head: No hemorrhage, midline shift or fracture. Sinuses normal. No atrophy, hydrocephalus or bony abnormalities. Includes neck: Stenosis and thrombus partially occluding L ICA. Head CTA performed with contrast. The study was independently viewed by me, interpreted by the radiologist and contemporaneously by me and discussed with the radiologist. Prior studies were not available for comparison. CT Head: No bony abnormalities, no hemorrhage, no intracranial mass, no midline shift and no hydrocephalus. No atrophy. (Multiple hypodensities L frontal/temporal/parietal lobes.). Head CT performed without contrast. The study was independently viewed by me, interpreted by the radiologist and contemporaneously by me and discussed with the radiologist. Prior studies were not available for comparison. Laboratory Tests: CBC w Diff: (DOREEN: 03/11/2017 16:30) ( [facility] 03/11/2017 16:48) Final results Test Result Flag Units (Reference) WHITE BLOOD COUNT 14.7 H K/uL (4.5-11.5) RED BLOOD COUNT 4.25 M/uL (4.00-5.20) HEMOGLOBIN 12.6 gm/dL (12.0-16.0) HEMATOCRIT 38.2 % (36.0-46.0) MEAN CELL VOLUME 90 fL (80-100) MEAN CORPUSCULAR HGB 30 pg (26-34) MEAN CORPUSCULAR HGB CONC 33 g/dL (31-37) RED CELL DISTRIBUTION WIDTH 13.7 % (11.6-14.8) PLATELET COUNT 322 K/uL (150-400) NEUTROPHIL % 80.0 H % (50-75) LYMPH % 15.1 L % (25-40) MONO % 2.9 L % (3-14) EOSINOPHIL % 1.7 % (0-4) BASOPHIL % 0.3 % (0-2) PT with INR: (DOREEN: 03/11/2017 16:30) ( [facility] 03/11/2017 19:30) Final results Test Result Flag Units (Reference) INR 0.9 (0.8-1.2) Low Intensity Therapy: INR 1.5-2.0 PT range 18.5-23.1Mod.Intensity Therapy: INR 2.0-3.0 PT range 23.1-31.5High Intensity Therapy: INR 2.5-3.5 PT range 27.4-35.5High Intensity Therapy 2: INR 3.0-4.0 PT range 31.5-39.3 CHEM 13 PANEL: (DOREEN: 03/11/2017 16:30) ( [facility] 03/11/2017 17:00) Final results Test Result Flag Units (Reference) GLUCOSE 90 mg/dL (70-110) BUN 13 mg/dL (7-18) CREATININE 0.6 mg/dL (0.6-1.3) Estimated GFR >60 mL/min Estimated GFR- >60 mL/min Note: Persistent reduction over 3 months in eGFR<60 mL/min/1.73 m2 defines CKD. Patients with eGFR values>=60 mL/min/1.73 m2 may also have CKD if evidence ofpersistent proteinuria. Additional information may be foundat www.kidney.org. SODIUM 140 mmol/L (136-145) POTASSIUM 4.0 mmol/L (3.5-5.1) CHLORIDE 105 mmol/L (98-107) CARBON DIOXIDE 26 mmol/L (21-32) CALCIUM 8.8 mg/dL (8.5-10.1) TOTAL PROTEIN 7.3 g/dL (6.4-8.2) ALBUMIN 3.4 g/dL (3.3-5.0) BILIRUBIN, TOTAL 0.3 mg/dL (0.0-1.0) ALKALINE PHOSPHATASE 111 U/L (46-116) AST (SGOT) 18 U/L (15-37) ALT (SGPT) 31 U/L (12-78) CPK 72 U/L (24-260) MAGNESIUM 2.0 mg/dL (1.8-2.4) TROPONIN I 0.08 ng/mL (0.00-1.5) TROPONIN REFERENCE RANGE:<0.1 NEGATIVE0.1-1.5 INDETERMINANT>1.5 POSITIVE . Pulse Oximetry: 03/11/2017 16:25 O2 saturation: 100%. (FIO2 - room air). Interpretation: normal. PROGRESS AND PROCEDURES Course of Care: Pt was worked up for her sx, and found to have multiple L hemispheric lesions on CT scan. Labs showed a leukocytosis, and ultimately, a positive drug screen for methamphetamines. Case was discussed with Dr. Loving/neurology at [facility] in [place], and he requested a CTA of the head and neck to evaluate for dissection and carotid flow. This did show a L ICA thrombus, which was felt to likely have broken loose from elsewhere. Given the shower of clots in the left hemisphere as well as the left ICA thrombus, likely ectopic, and also in consideration of the patient's drug screen which was positive for methamphetamines, I felt that the likelihood of septic emboli from endocarditis was a real possibility. I had consulted Dr. Adamson at this point to admit the patient here, since [facility] could not take the patient and [facility] was unsure that they would have a bed for the patient. However, with the probable ectopic clot it was agreed that the patient should go to a facility that can retrieve the clot if necessary and also, that can deal with the probable endocarditis at this patient has. Dr. Loving was reconsulted and he did readily accept the patient in transfer. I did also speak with the it network engineer at [facility] to report the patient's case to him. Dr. Loving did state that we should hold off on anticoagulants at this time. Discussed case with on-call health care provider, (Inder/neurology/[facility]/[place]). Reviewed test results and need for additional work-up. Agreed upon treatment plan. Patient and family counseled in person regarding the patient's serious condition, test results, diagnosis and need for transfer. Concerns were addressed. Old medical records reviewed. Disposition: Benefits, risks and alternatives to transfer explained to patient. Transferred to [facility]. Condition: critical. 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 TPA given and patient last known well 3 or more hours prior to administration. Patient arrived in the emergency department greater than 2 hours since time last known well. 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 (Electronically signed by Alana Yu MD 03/14/2017 5:49)
--- NOTE | 2017-03-11 23:50 | ED ORDER SUMMARY ---
..... Patient: HIRO GLYNN OrderSheet [facility] VisitID: [id number] [place] [address] 31y, F Registration Date/Time: 03/11/2017 ORDER SHEET Weight: 113.3 kg (estimated) Allergies: Bee stings, Shellfish-derived Products, Vicodin GENERAL ORDERS: CT Head wo Cont Urgent (16:26 03/11/2017 Fareed R.N. per protocol) (Ack 16:29 PWeiler ER Tech1) (18:43 MCampbell) Urine Drug Screen Urgent (16:41 03/11/2017 Javier MEEK) (Ack 16:44 PWeiler ER Tech1) (23:21 LMuller) UA-Culture if indicated Urgent (16:41 03/11/2017 Javier MEKE) (Ack 16:44 Reymundo ER Tech1) (23:21 LMuller) Cardiac Panel Stat (16:41 03/11/2017 Javier MEEK) (Ack 16:44 PWeiler ER Tech1) (19:34 LMuller) Urine Urgent (16:41 03/11/2017 Javier MEEK) (Ack 16:44 THERESAeijosefina ER Tech1) (23:21 LMuller) PT with INR Urgent (19:16 03/11/2017 Javier MEEK) (19:34 LMuller) CTA Head and Neck (No) (N/A) Urgent (21:21 03/11/2017 Javier MEEK) (Ack 21:23 LMuller) (Cancelled: [id number] LMuller) CTA Head and Neck (No) (N/A) Urgent (22:02 03/11/2017 LMuller verbal order read back to Javier MEEK) (Ack 22:03 LMuller) (22:22 LMuller) Blood Culture (No) (N/A) Urgent (00:17 03/12/2017 Javier MEEK) (Ack 0:46 LMuller) (1:01 LMuller) MEDICATION ORDERS: Aspirin PO 325 mg (Do not crush or chew, NOW) (19:16 03/11/2017 Javier MEEK) (Ack 19:23 Kimberlee Cheema) (19:29 Kimberlee Cheema) IV FLUIDS: IV NS : initial bolus 1000 mL (1000 mL/hr), then none - (NOW) (16:40 03/11/2017 Javier MEEK) (16:44 Sis Cheema) Vancomycin IV 1.5 gm/500 mL (NOW) (00:17 03/12/2017 Javier MEEK) (1:41 Judy Cheema) ORDER SHEET NOTES: [Electronically signed by Rosana Fraser R.N. (01:52 03/12/2017)] [Electronically signed by Alana Yu MD (05:49 03/14/2017)] [Electronically locked/signed by Rosana Fraser R.N. (01:52 03/12/2017)]
--- NOTE | 2017-03-11 23:50 | ED NURSING NOTES ---
Clinical Report - Nurses [facility] [address] [place] [address] 03/11/2017 16:21 [id number] Triage time 16:29. Acuity: LEVEL 2. Chief Complaint: WEAKNESS and NUMBNESS and (Right sided weakness and facial drooping). --16:35 Sheriff Gan R.N. 16:25 03/11/17. BP: 167/98. HR: 96. RR: 18. O2 saturation: 100%. Temp: 98.1 F. --16:35 Sheriff Gan R.N. Weight: 113.3 kg estimated. Height/Length: 64 inches Per Patient. BMI: 42.9. --16:25 Sheriff Gan R.N. Medications Albuterol Sulfate Inhalation 2 puffs, PRN. BP med - pt can't remember name . Levothyroxine Sodium Oral 50 mcg, daily. Xanax Oral, as needed (pt unsure of dose ). Zoloft Oral 150mg , daily. --16:32 Sheriff Gan R.N. Allergies Bee stings. Shellfish-derived Products. --16:32 Sheriff Gan R.N. Vicodin. --16:32 Sheriff Gan R.N. History Arrived by private vehicle. Historian: patient. Unaccompanied. ( Right sided weakness, started yesterday around 8pm.). SOCIAL HX: Never smoker. No alcohol use or drug use. FALL RISK ASSESSMENT: Fall risk assessment completed. No fall risk identified. NUTRITIONAL RISK ASSESSMENT: The nutritional risk assessment revealed no deficiencies. FUNCTIONAL ASSESSMENT: Functional assessment: no impairments noted. LEARNING NEEDS ASSESSMENT: The learning needs assessment revealed no barriers. SKIN INTEGRITY ASSESSMENT: Skin integrity risk assessment completed. No skin integrity risk identified. --16:35 Sheriff Gan R.N. PROBLEMS: Anxiety Reaction. Cellulitis. Sprain. Bronchitis. Contusion. Abscess. Dysfunctional Uterine Bleeding. Seizure Disorder. Seizures ?. Dizzy at work . Dizziness. Headache. Dental Pain. Depression. . Acute Pain. UTI - Urinary Tract Infection. Lifestyle / Substance Problems. Polycystic Ovary Disease. Abdominal Pain. Ovarian Cyst. Immunizations. LNMP - Last Normal Menstrual Period. --16: Sheriff Gan R.N. Dyspnea [Resolved]. Vaginitis [Resolved]. Lower Extremity Pain [Resolved]. Spontaneous (Miscarriage) [Resolved]. --16: Sheriff Gan R.N. Seizure [RuleOut]. --16:31 Sheriff Gan R.N. Interventions ID band on patient. --16:35 Sheriff Gan R.N. PHYSICAL ASSESSMENT To room via wheelchair. GENERAL / NEURO / PSYCH: Awake. Oriented X 4. Alert. Appears in no acute distress. Expressive aphasia. RESPIRATORY: Respirations not labored. CVS: Capillary refill less than 2 seconds. SKIN: Skin is intact, warm and dry. --16:35 Sheriff Gan R.N. NURSING PROGRESS NOTES Patient gowned. Head of bed elevated. Two patient identifiers checked. Call light placed in reach. Side rails up x 2. Bed placed in lowest position. Brakes of bed on. --16:36 Sheriff Gan R.N. 16:28 03/11/2017 Site #1 started via IV in the left antecubital space with an 20g angiocath, with aseptic technique and good blood return; one attempt. Blood drawn: rainbow set. Labeled in the presence of the patient and sent to the lab. Saline lock flushed with 10 mL saline. --16:43 Sheriff Gan R.N. 16:44 03/11/2017 Started bag #1 1000 mL IV Fluids IV NS (Saline); at 1000 mL/hr over 1 hour(s) via site #1 via IV pump. Allergies verified and confirmed 5 rights. IV patency established. IV site checked: no pain, redness, or swelling. IV flushed thoroughly pre- and post-medication administration. --16:44 Sheriff Gan R.N. 18:24 03/11/17. BP: 140/96. HR: 93. RR: 20. O2 saturation: 99%. --18:25 Sheriff Gan R.N. 19:28 03/11/2017 Aspirin PO Tablets 325 mg given. Allergies verified and confirmed 5 rights. (Swallow screen done and patient passed. ASA 325 PO given and tolerated well.). --19:29 Adair Knutson R.N. 20:16 03/11/17. BP: 142/111. HR: 97. RR: 18. O2 saturation: 99%. --20:16 Sheriff Gan R.N. 22:49 03/11/17. BP: 138/69. HR: 91. RR: 18. O2 saturation: 98%. Temp: 98.6 F. --22:50 Sheriff Gan R.N. The patient is calm and resting quietly. Overall patient status is the same. GENERAL / NEURO / PSYCH: The patient reports weakness of the right arm and hand. Weakness is still present. Alert. Oriented X 4. RESPIRATORY: No respiratory distress. --22:59 Sheriff Gan R.N. 23:30 03/11/17. BP: 137/70. HR: 83. RR: 13. O2 saturation: 99%. --00:58 Adair Knutson R.N. 11:30 PM 00:57 Mar 11 2017. ( Report from Sheriff DUKE to take over care.). --00:58 Adair Knutson R.N. 00:30 03/12/17. BP: 120/63. HR: 85. RR: 13. O2 saturation: 99%. --00:59 Adair Knutson R.N. Cardiac rhythm: normal sinus rhythm. The patient is calm and resting quietly. GENERAL / NEURO / PSYCH: The patient reports weakness of the right arm and hand. Alert. Oriented X 4. RESPIRATORY: No respiratory distress. SKIN: Skin is warm and dry. --00:59 Adair Knutson R.N. Patient ID band checked for patient name and birthdate: patient confirmed. Blood samples drawn from the peripheral IV site by nurse per protocol ; labeled in presence of the patient and sent to lab: blood culture (1st set). Line flushed with 10 mL normal saline post blood draw. --01:02 Rosana Fraser R.N. 01:38 03/12/2017 Started 1.5 gm of Vancomycin IVPB in bag #1 500 mL; at 353 mL/hr over 1.5 hour(s) via site #1 via IV pump. Allergies verified and confirmed 5 rights. IV patency established. IV site checked: no pain, redness, or swelling. IV flushed thoroughly pre- and post-medication administration (SENT EN ROUTE). --01:41 Rosana Fraser R.N. 01:38 03/12/2017 IV Fluids IV NS Discontinued: completed upon discharge. Total amount infused: 1000 mL. IV patency established. IV site checked: no pain, redness, or swelling. IV flushed thoroughly. --01:38 Rosana Fraser R.N. 01:41 03/12/2017 Vancomycin IVPB Continued: upon transfer at the rate of 353 mL/hr. 530 mL remaining bag #1. IV patency established. IV site checked: no pain, redness, or swelling. IV flushed thoroughly. --01:41 Rosana Fraser R.N. 01:42 03/12/2017 Site #[address] upon transfer; patent, no pain and no signs of infection or infiltration. Good blood return present. --01:42 Rosana Fraser R.N. DISPOSITION / DISCHARGE Report was given to a nurse via a phone call. Report included patient's care, treatment, medications, reviewed medication reconcilliation, and condition (including any recent changes or anticipated changes). All questions were answered. Report was acknowledged. (Kindra DUKE- Neuro ICU [facility]). --01:10 Adair Knutson R.N. Departure time: 01:46. Transferred to [facility]. Summary of care provided to EMS. --01:47 Rosana Fraser R.N. 01:35 03/12/17. BP: 114/65. HR: 93 (regular and normal rate). RR: 18. O2 saturation: 96% on room air. Temp: deferred. Pain level now: 12/24. --01:47 Rosana Fraser R.N. Locked/Released at 03/12/2017 1:52 by Rosana Fraser R.N.
--- NOTE | 2017-03-11 23:50 | ED ORDER SUMMARY ---
..... Patient: HIRO GLYNN OrderSheet [facility] VisitID: [id number] [place] [address] 31y, F Registration Date/Time: 03/11/2017 ORDER SHEET Weight: 113.3 kg (estimated) Allergies: Bee stings, Shellfish-derived Products, Vicodin GENERAL ORDERS: CT Head wo Cont Urgent (16:26 03/11/2017 Fareed R.N. per protocol) (Ack 16:29 PWeiler ER Tech1) (18:43 MCampbell) Urine Drug Screen Urgent (16:41 03/11/2017 Javier MEEK) (Ack 16:44 PWeiler ER Tech1) (23:21 LMuller) UA-Culture if indicated Urgent (16:41 03/11/2017 Javier MEEK) (Ack 16:44 Reymundo ER Tech1) (23:21 LMuller) Cardiac Panel Stat (16:41 03/11/2017 Javier MEEK) (Ack 16:44 PWeiler ER Tech1) (19:34 LMuller) Urine Urgent (16:41 03/11/2017 Javier MEEK) (Ack 16:44 THERESAeijosefina ER Tech1) (23:21 LMuller) PT with INR Urgent (19:16 03/11/2017 Javier MEEK) (19:34 LMuller) CTA Head and Neck (No) (N/A) Urgent (21:21 03/11/2017 Javier MEEK) (Ack 21:23 LMuller) (Cancelled: [id number] LMuller) CTA Head and Neck (No) (N/A) Urgent (22:02 03/11/2017 LMuller verbal order read back to Javier MEEK) (Ack 22:03 LMuller) (22:22 LMuller) Blood Culture (No) (N/A) Urgent (00:17 03/12/2017 Javier MEEK) (Ack 0:46 LMuller) (1:01 LMuller) MEDICATION ORDERS: Aspirin PO 325 mg (Do not crush or chew, NOW) (19:16 03/11/2017 Javier MEEK) (Ack 19:23 Kimberlee Cheema) (19:29 Kimberlee Cheema) IV FLUIDS: IV NS : initial bolus 1000 mL (1000 mL/hr), then none - (NOW) (16:40 03/11/2017 Javier MEEK) (16:44 Sis Cheema) Vancomycin IV 1.5 gm/500 mL (NOW) (00:17 03/12/2017 Javier MEEK) (1:41 Judy Cheema) ORDER SHEET NOTES: [Electronically signed by Rosana Fraser R.N. (01:52 03/12/2017)] [Electronically signed by Alana Yu MD (05:49 03/14/2017)] [Electronically locked/signed by Rosana Fraser R.N. (01:52 03/12/2017)]
--- NOTE | 2017-03-14 05:49 | ED MAR SUMMARY ---
..... Medication Administration Record [facility] [address] [place] [address] Patient: HIRO GLYNN Visit ID: [id number] 31y, F Weight: 113.3 kg Height/Length: 64 in BMI: 42.9 ALLERGIES: Bee stings, Shellfish-derived Products, Vicodin Start 16:44 03/11/2017 Sheriff Gan R.N., Stop 01:38 03/12/2017 Rosana Fraser R.N. Medication Administered: IV NS (SALINE), Dose: IV Fluids over 1 hour(s), Rate: 1000 mL/hr, Dispensed: 1000 mL bag, Site: #1 left AC. Medication Ordered: IV NS : initial bolus 1000 mL (1000 mL/hr), then none - (NOW). Given 19:28 03/11/2017 Adair Knutson R.N. Medication Administered: ASPIRIN [PO], Dose: 325 mg Tablets PO. Medication Ordered: Aspirin PO 325 mg (Do not crush or chew, NOW). Start 01:38 03/12/2017 Rosana Fraser R.N., Continued Upon Transfer 01:41 03/12/2017 Rosana Fraser R.N. Medication Administered: VANCOMYCIN [IVPB], Dose: 1.5 gm IVPB over 1.5 hour(s), Rate: 353 mL/hr, Dispensed: 500 mL bag, Site: #1 left AC. Medication Ordered: Vancomycin IV 1.5 gm/500 mL (NOW).
--- NOTE | 2017-03-14 05:49 | ED MED RECONCILIATION SUMMARY ---
Patient: HIRO GLYNN Medication Reconciliation Report [facility] VisitID: [id number] [place] [address] 31y, F Registration Date/Time: 03/11/2017 Weight: 113.3 kg Height/Length: 64 in. BMI: 42.9 ALLERGIES: Bee stings, Shellfish-derived Products, Vicodin The patient's Home Medications are listed below: THE FOLLOWING MEDICATIONS NEED TO BE RECONCILED: Albuterol Sulfate Inhalation 2 puffs, PRN BP med - pt can't remember name Levothyroxine Sodium Oral 50 mcg, daily Xanax Oral, pt unsure of dose Zoloft Oral 150mg , daily The source(s) of the original Home Medication information: Not obtained. The following Medications were given to the patient in the Emergency Department: IV NS IV Fluids bolus 0, then 1000 mL/hr, administered: 03/11/2017 4:44:00 PM Aspirin [PO] PO 325 mg, administered: 03/11/2017 7:28:00 PM Vancomycin [IVPB] IVPB bolus 0, then 1.5 gm 353 mL/hr, administered: 03/12/2017 1:38:00 AM The following Medications were prescribed to the patient: None.
--- NOTE | 2017-03-14 05:49 | ED DISCHARGE INSTRUCTIONS ---
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 TPA given and patient last known well 3 or more hours prior to administration. Patient arrived in the emergency department greater than 2 hours since time last known well. 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 (Electronically signed by Alana Yu MD 03/14/2017 5:49)
--- NOTE | 2017-03-14 05:49 | ED MED RECONCILIATION SUMMARY ---
Patient: HIRO GLYNN Medication Reconciliation Report [facility] VisitID: [id number] [place] [address] 31y, F Registration Date/Time: 03/11/2017 Weight: 113.3 kg Height/Length: 64 in. BMI: 42.9 ALLERGIES: Bee stings, Shellfish-derived Products, Vicodin The patient's Home Medications are listed below: THE FOLLOWING MEDICATIONS NEED TO BE RECONCILED: Albuterol Sulfate Inhalation 2 puffs, PRN BP med - pt can't remember name Levothyroxine Sodium Oral 50 mcg, daily Xanax Oral, pt unsure of dose Zoloft Oral 150mg , daily The source(s) of the original Home Medication information: Not obtained. The following Medications were given to the patient in the Emergency Department: IV NS IV Fluids bolus 0, then 1000 mL/hr, administered: 03/11/2017 4:44:00 PM Aspirin [PO] PO 325 mg, administered: 03/11/2017 7:28:00 PM Vancomycin [IVPB] IVPB bolus 0, then 1.5 gm 353 mL/hr, administered: 03/12/2017 1:38:00 AM The following Medications were prescribed to the patient: None.
--- NOTE | 2017-03-14 05:49 | ED MAR SUMMARY ---
..... Medication Administration Record [facility] [address] [place] [address] Patient: HIRO GLYNN Visit ID: [id number] 31y, F Weight: 113.3 kg Height/Length: 64 in BMI: 42.9 ALLERGIES: Bee stings, Shellfish-derived Products, Vicodin Start 16:44 03/11/2017 Sheriff Gan R.N., Stop 01:38 03/12/2017 Rosana Fraser R.N. Medication Administered: IV NS (SALINE), Dose: IV Fluids over 1 hour(s), Rate: 1000 mL/hr, Dispensed: 1000 mL bag, Site: #1 left AC. Medication Ordered: IV NS : initial bolus 1000 mL (1000 mL/hr), then none - (NOW). Given 19:28 03/11/2017 Adair Knutson R.N. Medication Administered: ASPIRIN [PO], Dose: 325 mg Tablets PO. Medication Ordered: Aspirin PO 325 mg (Do not crush or chew, NOW). Start 01:38 03/12/2017 Rosana Fraser R.N., Continued Upon Transfer 01:41 03/12/2017 Rosana Fraser R.N. Medication Administered: VANCOMYCIN [IVPB], Dose: 1.5 gm IVPB over 1.5 hour(s), Rate: 353 mL/hr, Dispensed: 500 mL bag, Site: #1 left AC. Medication Ordered: Vancomycin IV 1.5 gm/500 mL (NOW).
--- NOTE | 2017-03-14 05:49 | ED DISCHARGE INSTRUCTIONS ---
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 TPA given and patient last known well 3 or more hours prior to administration. Patient arrived in the emergency department greater than 2 hours since time last known well. 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 (Electronically signed by Alana Yu MD 03/14/2017 5:49)
== END 2017-03-12 01:52 | disposition short-term general hospital (02) ==
LOC: ED SRH 16:19 → TRANS SRH 22:08 → ED SRH 22:08
DX: I61.9 Nontraumatic intracerebral hemorrhage, unspecified (principal); G83.21 Monoplegia of upper limb affecting right dominant side; D72.829 Elevated white blood cell count, unspecified; R78.4 Finding of other drugs of addictive potential in blood; G40.909 Epilepsy, unspecified, not intractable, without status epilepticus
CPT/HCPCS: 90004; 90065; 90100; 90616; 91585; 92610; 92720; 92760; 92761; 92762; 92763; 92764; 92765; 92766; 92767; 93070; 94060; 95059; 95150

== ENCOUNTER 2017-03-20 17:05 | Emergency (ER) | payer OTHER ==
--- NOTE | 2017-03-20 17:53 | DIAGNOSTIC IMAGING REPORT ---
PROCEDURE: CT HEAD WITHOUT CONTRAST INDICATION: R ARM WEAKNESS TECHNIQUE: Axial CT images were acquired through the head. Coronal and sagittal reformations were created. COMPARISON: Head CT 03/11/17 FINDINGS: Decrease in the number of small hypodensities of the left frontal, temporal and parietal lobes with mild mass effect, minor compression of the left lateral ventricle but no evidence of hemorrhage. There is some cortical sparring of some of these hypodensities. No evidence of radiodense MCA. Mastoids and sinuses are clear. IMPRESSION: 1. Decrease in left cerebral hypodensities. No hemorrhage. Possible vasculitis. 2. Findings discussed with Dr. Yu at 05:49 p.m., [facility] Standard Time All CT scans at this facility use dose modulation, iterative reconstruction, and/or weight-based dosing when appropriate to reduce radiation dose to as low as reasonably achievable.
--- NOTE | 2017-03-20 19:53 | ED CLINICAL REPORT ---
Clinical Report - Physicians/Mid Levels [facility] [address] [place] [address] 03/20/2017 17:06 Patient: HIRO GLYNN Time Seen: 17:18. Arrived- By private vehicle. Historian- patient. HISTORY OF PRESENT ILLNESS Chief Complaint: WEAKNESS. This started today and is still present. The patient has had pre-existing localized weakness of the right face (mild), right arm (moderate) and right hand (moderate). No numbness, tingling, visual disturbance, impaired swallowing or recent fall. No difficulty walking. At its maximum deficit described as moderate. When seen in the E.D.,deficit described as moderate. No dizziness, altered mental status, seizure or blackouts. (Patient has had right arm weakness since presenting to the emergency department with the same symptoms last week. She states it feels a little worse today.). (This patient was seen in the emergency department last week for similar symptoms of dense right arm weakness. She was worked up extensively and found to have multiple hypodensities in her left hemisphere on CT scanas well as a partially attached thrombus in her left carotid artery. She was suspected to potentially have infective endocarditis with showering of septic emboli, although she was not found to have a murmur on exam and was afebrile. She did have an elevated white blood cell count at that time, and was found to be positive for methamphetamines on her urine drug screen. She was sent to [facility] for further workup by neurology service and was kept in the intensive care unit. Patient states "they told me my symptoms were from an allergic reaction". Patient does not remember all the tests that were done, but states "I got lots of MRIs and CTs". She states that she does not remember the last few days of her stay in the hospital really, and that she was not discharged with any medications. She is uncertain exactly what she was supposed to do after the admission. Patient states that her symptoms today started after feeling upset because her boyfriend left her. She states that she tried to get her family to bring her to the doctor, but they just didn't seem to care and nobody was willing to bring her. Patient is very tearful when relating this.). Similar symptoms previously: Recent medical care: The patient was seen recently at this facility and another facility. REVIEW OF SYSTEMS No fever, headache, head injury, chest pain or difficulty breathing. No cough, sputum production, sore throat, abdominal pain or nausea. No diarrhea, black stools, difficulty with urination, skin rash or enlarged lymph nodes. No joint pain, vomiting, bloody stools or back pain. All systems otherwise negative, except as recorded above. PAST HISTORY ( Patient states she saw a neurologist for possible seizures for a while and states "they did lots of tests, but they said there was nothing wrong, and I didn't need to see them anymore."). Problems: CVA - Cerebrovascular Accident. Anxiety Reaction. Dysfunctional Uterine Bleeding. Seizure Disorder. Dizziness. Headache. Depression. Allergic Reaction. Lifestyle / Substance Problems. Polycystic Ovary Disease. Ovarian Cyst. Immunizations. LNMP - Last Normal Menstrual Period. Additional Surgeries: . Medications: Albuterol Sulfate Inhalation 2 puffs, PRN. BP med - pt can't remember name . Levothyroxine Sodium Oral 50 mcg, daily. Xanax Oral, as needed (pt unsure of dose ). Zoloft Oral 150mg , daily. Allergies: Bee stings. Shellfish-derived Products. Vicodin. SOCIAL HISTORY Smoker- current status unknown. History of drug use Recent history of positive drug screen for methamphetamines; patient denies drug use. No alcohol use. ADDITIONAL NOTES The nursing notes have been reviewed. PHYSICAL EXAM Vital Signs: 03/20/2017 17:15 BP: 159/116. HR: 79. RR: 20. O2 saturation: 97%. Temp: 98.1 F. Have been reviewed. Appearance: Alert. No acute distress. (Patient intermittently appears emotionally distraught, and is tearful.). Head: Head atraumatic. Eyes: Pupils equal, round and reactive to light. ENT: Normal ENT inspection. Airway intact. Neck: Normal inspection. CVS: Normal heart rate and rhythm. Heart sounds normal. Pulses normal. Respiratory: No respiratory distress. Breath sounds normal. Abdomen: Soft and nontender. Back: Normal inspection. Skin: Skin warm and dry. Normal skin color. No rash. Normal skin turgor. Extremities: Extremities exhibit normal ROM. No lower extremity edema. Neuro: Alert. Mood/affect normal. Speech normal. Cranial nerves normal (as tested). No cerebellar findings. No motor deficit. No sensory deficit. (Patient is mentally clear and does answer questions appropriately. She is grossly oriented.). LABS, X-RAYS, AND EKG Pulse Oximetry: 03/20/2017 17:15 O2 saturation: 97%. (FIO2 - room air). Interpretation: normal. PROGRESS AND PROCEDURES Course of Care: I did obtain a CT scan of this patient's brain to compare with her previous one from last week, and to evaluate for any new developments. The CT actually showed improvement of the hypodense lesions this time compared with patient's last CT. No new findings were noted. I did withhold further workup in favor of waiting for the patient's records from [facility]. This patient had real findings on her previous visit and CT, but I did suspect some psychosomatic overlay. Patient was observed for quite some time, and despite multiple calls to the [facility], we were unable to connect with a live person, and records were never sent. At this point in time, I did feel that the patient is stable for discharge home. Herbrain lesions are actually improving, and I have advised the patient the importance of looking at her discharge instructions from [facility] and following upas they have advised her to do. In addition, patient should make sure she is taking any medications that they had prescribed, as directed. Patient counseled in person regarding the patient's stable condition, test results, diagnosis and need for follow-up. Concerns were addressed. Old medical records reviewed. Disposition: Discharged. Condition: stable and improved. CLINICAL IMPRESSION Chronic right hemiparesis. INSTRUCTIONS (Your CT scan actually looks better today than it did last week. There is no evidence of a new stroke. Additionally, the weakness on the right side of the face and weakness on the right side of the body do not fit with the way the nerves are set up in brain and spinal cord, making a stroke less likely. Please follow the instructions you were given by [facility], as far as your meds and follow-up.). Warnings: GENERAL WARNINGS: Return or contact your physician immediately if your condition worsens or changes unexpectedly, if not improving as expected, or if other problems arise. Your Current Medications: CONTINUE TAKING THE FOLLOWING MEDICATIONS: Albuterol Sulfate Inhalation : 2 puffs PRN. BP med - pt can't remember name *. Levothyroxine Sodium Oral : 50 mcg daily. Xanax Oral : prn, pt unsure of dose. Zoloft Oral : 150mg daily. Follow-up: Follow up with your doctor. Call for the next available appointment. Understanding of the discharge instructions verbalized by patient. (Electronically signed by Alana Yu MD 03/26/2017 0:18)
--- NOTE | 2017-03-20 19:54 | ED ORDER SUMMARY ---
..... Patient: HIRO GLYNN OrderSheet [facility] VisitID: [id number] [place] [address] 31y, F Registration Date/Time: 03/20/2017 ORDER SHEET Weight: 92.9 kg (stated) Allergies: Bee stings, Shellfish-derived Products, Vicodin GENERAL ORDERS: CT Head wo Cont Urgent (17:19 03/20/2017 Javier MEEK) (Ack 17:46 Mariia) (18:37 Haven R.N.) MEDICATION ORDERS: Aspirin PO 325 mg (Do not crush or chew, NOW) (17:43 03/20/2017 Javier MEEK) (Ack 17:45 Fareed Munson.NNoah) (17:56 Haven R.N.) IV FLUIDS: ORDER SHEET NOTES: [Electronically signed by Sidra Leal R.N. (20:12 03/20/2017)] [Electronically signed by Alana Yu MD (00:18 03/26/2017)] [Electronically locked/signed by Sidra Leal R.N. (20:12 03/20/2017)]
--- NOTE | 2017-03-20 19:54 | ED ORDER SUMMARY ---
..... Patient: HIRO GLYNN OrderSheet [facility] VisitID: [id number] [place] [address] 31y, F Registration Date/Time: 03/20/2017 ORDER SHEET Weight: 92.9 kg (stated) Allergies: Bee stings, Shellfish-derived Products, Vicodin GENERAL ORDERS: CT Head wo Cont Urgent (17:19 03/20/2017 Javier MEEK) (Ack 17:46 Mariia) (18:37 Haven R.N.) MEDICATION ORDERS: Aspirin PO 325 mg (Do not crush or chew, NOW) (17:43 03/20/2017 Javier MEEK) (Ack 17:45 Fareed Munson.NNoah) (17:56 Haven R.N.) IV FLUIDS: ORDER SHEET NOTES: [Electronically signed by Sidra Leal R.N. (20:12 03/20/2017)] [Electronically signed by Alana Yu MD (00:18 03/26/2017)] [Electronically locked/signed by Sidra Leal R.N. (20:12 03/20/2017)]
--- NOTE | 2017-03-20 19:54 | ED NURSING NOTES ---
Clinical Report - Nurses [facility] [address] [place] [address] 03/20/2017 17:06 [id number] Triage time 1705. Acuity: LEVEL 3. Chief Complaint: NUMBNESS and FACIAL DROOP. Alert. JODIE COMA SCORE: [place] Coma Scale: 15- eyes open spontaneously (4); best verbal response- oriented x 4 (5); best motor response- obeys commands (6). --17:23 Sdira Leal R.N. 17:15 03/20/17. BP: 159/116. HR: 79. RR: 20. O2 saturation: 97%. Temp: 98.1 F. Pain level now 8/10. --17:23 Sidra Leal R.N. Weight: 92.9 kg stated. Height/Length: 64 inches Per Patient. BMI: 35.2. --17:21 Sidra Leal R.N. Medications Albuterol Sulfate Inhalation 2 puffs, PRN. BP med - pt can't remember name . Levothyroxine Sodium Oral 50 mcg, daily. Xanax Oral, as needed (pt unsure of dose ). Zoloft Oral 150mg , daily. --17:18 Sidra Leal R.N. Medication/allergy information source: the patient. --17:23 Sidra Leal R.N. Allergies Bee stings. Shellfish-derived Products. Vicodin. --17:18 Sidra Leal R.N. History Arrived by private vehicle. Historian: patient. Unaccompanied. Primary physician (Alex). This started last night. ( patient awoke to feeling right arm numbness and sees a right sided facial droop. patient here for same this past week). ( Feels left sided chest pain). PAST MEDICAL HX: Immunizations: up-to-date. Last normal menstrual period- Now 2 days ago. SOCIAL HX: Current every day light tobacco smoker- less than 1/2 a pack per day. No alcohol use or drug use. No infectious disease exposure. ABUSE ASSESSMENT: No report of abuse. SELF HARM ASSESSMENT: A self harm assessment was performed. The patient answered "no" to the question "Do you have thoughts of harming or killing yourself?" and "Are you here because you tried to hurt yourself?". FALL RISK ASSESSMENT: Fall risk assessment completed. No fall risk identified. NUTRITIONAL RISK ASSESSMENT: The nutritional risk assessment revealed no deficiencies. FUNCTIONAL ASSESSMENT: Functional assessment: no impairments noted. LEARNING NEEDS ASSESSMENT: The learning needs assessment revealed no barriers. SKIN INTEGRITY ASSESSMENT: Skin integrity risk assessment completed. No skin integrity risk identified. --17:23 Sidra Leal R.N. PROBLEMS: Infective Endocarditis. CVA - Cerebrovascular Accident. Anxiety Reaction. Cellulitis. Sprain. Bronchitis. Contusion. Abscess. Dysfunctional Uterine Bleeding. Seizure Disorder. Dizzy at work . Dizziness. Headache. Dental Pain. Depression. . Allergic Reaction. Acute Pain. UTI - Urinary Tract Infection. Lifestyle / Substance Problems. Polycystic Ovary Disease. Abdominal Pain. Ovarian Cyst. Immunizations. LNMP - Last Normal Menstrual Period. --17:19 Sidra Leal R.N. Dyspnea [Resolved]. Vaginitis [Resolved]. Lower Extremity Pain [Resolved]. Spontaneous (Miscarriage) [Resolved]. --17:19 Sidra Leal R.N. Seizure [RuleOut]. --17:19 Sidra Leal R.N. The following entry was modified by Alana Yu MD, 18:20 Reason - duplicate <<STRICKEN ENTRY-- Seizures ?. --15:33 Alana Yu MD --END STRIKE>>. ADDITIONAL SURGERIES: . --17:19 Sidra Leal R.N. Interventions ID band on patient. To room. --17:23 Sidra Leal R.N. PHYSICAL ASSESSMENT ( patient states left sided chest pain over several hours, constant in nature). GENERAL / NEURO / PSYCH: Awake. Oriented X 4. Alert. Appears anxious. Mood/affect abnormal (depressed). She has had numbness of the right arm. HEENT: No facial asymmetry noted. RESPIRATORY: Respirations not labored. SKIN: Skin is intact, warm and dry. --17:27 Sidra Leal R.N. NURSING PROGRESS NOTES Monitoring of patient in place. Patient gowned. Head of bed elevated. Reassurance given. Patient transported to [place] by stretcher with tech. (17:27). Two patient identifiers checked. Call light placed in reach. Side rails up x 2. Bed placed in lowest position. Brakes of bed on. Patient ready for evaluation- chart flagged. ED physician notified. --17:28 Sidra Leal R.N. ( patient crying during doctor assessment. states she is having boyfriend issues "he doesn't see me". Can't get ride to ER, "nobody will give me a ride to the hospital, I had to wait 2 hours for a ride"). --17:31 Sidra Leal R.N. Patient returned from [place] by stretcher with tech. (17:36). ( given warm blanket). --17:37 Sidra Leal R.N. 17:46 03/20/2017 Aspirin PO 325 mg given. Allergies verified and confirmed 5 rights. --17:56 Sidra Leal R.N. 17:45 03/20/17. BP: 109/62. HR: 67. RR: 20. O2 saturation: 98%. --18:25 Sidra Leal R.N. 18:30 03/20/17. BP: 108/58 (regular adult cuff) taken on the left arm, while lying. HR: 63. RR: 18. O2 saturation: 99%. --18:43 Sidra Leal R.N. The patient reports no complaints and she is resting quietly. --18:43 Sidra Leal R.N. ( patient reports 6/10 chest pain, speaks on telephone numerous times, resting quietly otherwise, now up to bathroom). --19:51 Sidra Leal R.N. 19:49 03/20/17. BP: 115/68. HR: 64. RR: 18. O2 saturation: 97%. Temp: 98 F. Pain level now 6/10. --19:51 Sidra Leal R.N. DISPOSITION / DISCHARGE 20:00. Departure time: 1999. Condition at departure: improved and stable. No learning barriers present. Discharge instructions provided and reviewed with the patient. Patient verbalized understanding. Written instructions provided in Romanian. The patient was discharged home and accompanied by family. She left the Emergency Department ambulatory and via private vehicle. Family member driving. --20:12 Sidra Leal R.N. 20:00 03/20/17. BP: deferred. HR: deferred. RR: deferred. O2 saturation: deferred. Temp: deferred. Pain level now deferred. --20:12 Sidra Leal R.N. Locked/Released at 03/20/2017 20:12 by Sidra Leal R.N.
--- NOTE | 2017-03-20 19:54 | ED NURSING NOTES ---
Clinical Report - Nurses [facility] [address] [place] [address] 03/20/2017 17:06 [id number] Triage time 1705. Acuity: LEVEL 3. Chief Complaint: NUMBNESS and FACIAL DROOP. Alert. JODIE COMA SCORE: [place] Coma Scale: 15- eyes open spontaneously (4); best verbal response- oriented x 4 (5); best motor response- obeys commands (6). --17:23 Sidra Leal R.N. 17:15 03/20/17. BP: 159/116. HR: 79. RR: 20. O2 saturation: 97%. Temp: 98.1 F. Pain level now 8/10. --17:23 Sidra Leal R.N. Weight: 92.9 kg stated. Height/Length: 64 inches Per Patient. BMI: 35.2. --17:21 Sidra Leal R.N. Medications Albuterol Sulfate Inhalation 2 puffs, PRN. BP med - pt can't remember name . Levothyroxine Sodium Oral 50 mcg, daily. Xanax Oral, as needed (pt unsure of dose ). Zoloft Oral 150mg , daily. --17:18 Sidra Leal R.N. Medication/allergy information source: the patient. --17:23 Sidra Leal R.N. Allergies Bee stings. Shellfish-derived Products. Vicodin. --17:18 Sidra Leal R.N. History Arrived by private vehicle. Historian: patient. Unaccompanied. Primary physician (Alex). This started last night. ( patient awoke to feeling right arm numbness and sees a right sided facial droop. patient here for same this past week). ( Feels left sided chest pain). PAST MEDICAL HX: Immunizations: up-to-date. Last normal menstrual period- Now 2 days ago. SOCIAL HX: Current every day light tobacco smoker- less than 1/2 a pack per day. No alcohol use or drug use. No infectious disease exposure. ABUSE ASSESSMENT: No report of abuse. SELF HARM ASSESSMENT: A self harm assessment was performed. The patient answered "no" to the question "Do you have thoughts of harming or killing yourself?" and "Are you here because you tried to hurt yourself?". FALL RISK ASSESSMENT: Fall risk assessment completed. No fall risk identified. NUTRITIONAL RISK ASSESSMENT: The nutritional risk assessment revealed no deficiencies. FUNCTIONAL ASSESSMENT: Functional assessment: no impairments noted. LEARNING NEEDS ASSESSMENT: The learning needs assessment revealed no barriers. SKIN INTEGRITY ASSESSMENT: Skin integrity risk assessment completed. No skin integrity risk identified. --17:23 Sidra Leal R.N. PROBLEMS: Infective Endocarditis. CVA - Cerebrovascular Accident. Anxiety Reaction. Cellulitis. Sprain. Bronchitis. Contusion. Abscess. Dysfunctional Uterine Bleeding. Seizure Disorder. Dizzy at work . Dizziness. Headache. Dental Pain. Depression. . Allergic Reaction. Acute Pain. UTI - Urinary Tract Infection. Lifestyle / Substance Problems. Polycystic Ovary Disease. Abdominal Pain. Ovarian Cyst. Immunizations. LNMP - Last Normal Menstrual Period. --17:19 Sidra Leal R.N. Dyspnea [Resolved]. Vaginitis [Resolved]. Lower Extremity Pain [Resolved]. Spontaneous (Miscarriage) [Resolved]. --17:19 Sidra Leal R.N. Seizure [RuleOut]. --17:19 Sidra Leal R.N. The following entry was modified by Alana Yu MD, 18:20 Reason - duplicate <<STRICKEN ENTRY-- Seizures ?. --15:33 Alana Yu MD --END STRIKE>>. ADDITIONAL SURGERIES: . --17:19 Sidra Leal R.N. Interventions ID band on patient. To room. --17:23 Sidra Leal R.N. PHYSICAL ASSESSMENT ( patient states left sided chest pain over several hours, constant in nature). GENERAL / NEURO / PSYCH: Awake. Oriented X 4. Alert. Appears anxious. Mood/affect abnormal (depressed). She has had numbness of the right arm. HEENT: No facial asymmetry noted. RESPIRATORY: Respirations not labored. SKIN: Skin is intact, warm and dry. --17:27 Sidra Leal R.N. NURSING PROGRESS NOTES Monitoring of patient in place. Patient gowned. Head of bed elevated. Reassurance given. Patient transported to [place] by stretcher with tech. (17:27). Two patient identifiers checked. Call light placed in reach. Side rails up x 2. Bed placed in lowest position. Brakes of bed on. Patient ready for evaluation- chart flagged. ED physician notified. --17:28 Sidra Leal R.N. ( patient crying during doctor assessment. states she is having boyfriend issues "he doesn't see me". Can't get ride to ER, "nobody will give me a ride to the hospital, I had to wait 2 hours for a ride"). --17:31 Sidra Leal R.N. Patient returned from [place] by stretcher with tech. (17:36). ( given warm blanket). --17:37 Sidra Leal R.N. 17:46 03/20/2017 Aspirin PO 325 mg given. Allergies verified and confirmed 5 rights. --17:56 Sidra Leal R.N. 17:45 03/20/17. BP: 109/62. HR: 67. RR: 20. O2 saturation: 98%. --18:25 Sidra Leal R.N. 18:30 03/20/17. BP: 108/58 (regular adult cuff) taken on the left arm, while lying. HR: 63. RR: 18. O2 saturation: 99%. --18:43 Sidra Leal R.N. The patient reports no complaints and she is resting quietly. --18:43 Sidra Leal R.N. ( patient reports 6/10 chest pain, speaks on telephone numerous times, resting quietly otherwise, now up to bathroom). --19:51 Sidra Leal R.N. 19:49 03/20/17. BP: 115/68. HR: 64. RR: 18. O2 saturation: 97%. Temp: 98 F. Pain level now 6/10. --19:51 Sidra eLal R.N. DISPOSITION / DISCHARGE 20:00. Departure time: 1999. Condition at departure: improved and stable. No learning barriers present. Discharge instructions provided and reviewed with the patient. Patient verbalized understanding. Written instructions provided in Azeri. The patient was discharged home and accompanied by family. She left the Emergency Department ambulatory and via private vehicle. Family member driving. --20:12 Sidra Leal R.N. 20:00 03/20/17. BP: deferred. HR: deferred. RR: deferred. O2 saturation: deferred. Temp: deferred. Pain level now deferred. --20:12 Sidra Leal R.N. Locked/Released at 03/20/2017 20:12 by Sidra Leal R.N.
--- NOTE | 2017-03-26 00:18 | ED MAR SUMMARY ---
..... Medication Administration Record [facility] [address] [place] [address] Patient: HIRO GLYNN Visit ID: [id number] 31y, F Weight: 92.9 kg Height/Length: 64 in BMI: 35.2 ALLERGIES: Bee stings, Shellfish-derived Products, Vicodin Given 17:46 03/20/2017 Sidra Leal RTomas Medication Administered: ASPIRIN [PO], Dose: 325 mg PO. Medication Ordered: Aspirin PO 325 mg (Do not crush or chew, NOW).
--- NOTE | 2017-03-26 00:18 | ED MAR SUMMARY ---
..... Medication Administration Record [facility] [address] [place] [address] Patient: HIRO GLYNN Visit ID: [id number] 31y, F Weight: 92.9 kg Height/Length: 64 in BMI: 35.2 ALLERGIES: Bee stings, Shellfish-derived Products, Vicodin Given 17:46 03/20/2017 Sidra Leal RTomas Medication Administered: ASPIRIN [PO], Dose: 325 mg PO. Medication Ordered: Aspirin PO 325 mg (Do not crush or chew, NOW).
--- NOTE | 2017-03-26 00:18 | ED DISCHARGE INSTRUCTIONS ---
Patient: HIRO GLYNN General Instructions [facility] VisitID: [id number] [place] [address] 31y, F Registration Date/Time: 03/20/2017 Chronic right hemiparesis. INSTRUCTIONS (Your CT scan actually looks better today than it did last week. There is no evidence of a new stroke. Additionally, the weakness on the right side of the face and weakness on the right side of the body do not fit with the way the nerves are set up in brain and spinal cord, making a stroke less likely. Please follow the instructions you were given by [place], as far as your meds and follow-up.). Warnings: GENERAL WARNINGS: Return or contact your physician immediately if your condition worsens or changes unexpectedly, if not improving as expected, or if other problems arise. Your Current Medications: CONTINUE TAKING THE FOLLOWING MEDICATIONS: Albuterol Sulfate Inhalation : 2 puffs PRN. BP med - pt can't remember name *. Levothyroxine Sodium Oral : 50 mcg daily. Xanax Oral : prn, pt unsure of dose. Zoloft Oral : 150mg daily. Follow-up: Follow up with your doctor. Call for the next available appointment. Understanding of the discharge instructions verbalized by patient. (Electronically signed by Alana Yu MD 03/26/2017 0:18)
--- NOTE | 2017-03-26 00:18 | ED DISCHARGE INSTRUCTIONS ---
Patient: HIRO GLYNN General Instructions [facility] VisitID: [id number] [place] [address] 31y, F Registration Date/Time: 03/20/2017 Chronic right hemiparesis. INSTRUCTIONS (Your CT scan actually looks better today than it did last week. There is no evidence of a new stroke. Additionally, the weakness on the right side of the face and weakness on the right side of the body do not fit with the way the nerves are set up in brain and spinal cord, making a stroke less likely. Please follow the instructions you were given by Malagasy, as far as your meds and follow-up.). Warnings: GENERAL WARNINGS: Return or contact your physician immediately if your condition worsens or changes unexpectedly, if not improving as expected, or if other problems arise. Your Current Medications: CONTINUE TAKING THE FOLLOWING MEDICATIONS: Albuterol Sulfate Inhalation : 2 puffs PRN. BP med - pt can't remember name *. Levothyroxine Sodium Oral : 50 mcg daily. Xanax Oral : prn, pt unsure of dose. Zoloft Oral : 150mg daily. Follow-up: Follow up with your doctor. Call for the next available appointment. Understanding of the discharge instructions verbalized by patient. (Electronically signed by Alana Yu MD 03/26/2017 0:18)
--- NOTE | 2017-03-26 00:18 | ED MED RECONCILIATION SUMMARY ---
Patient: YADIEL GLYNNECCA Eulalio Medication Reconciliation Report [facility] VisitID: [id number] [address] [place] [address] 31y, F Registration Date/Time: 03/20/2017 Weight: 92.9 kg Height/Length: 64 in. BMI: 35.2 ALLERGIES: Bee stings, Shellfish-derived Products, Vicodin The patient's Home Medications are listed below: CONTINUE TAKING THE FOLLOWING MEDICATIONS: Albuterol Sulfate Inhalation 2 puffs, PRN BP med - pt can't remember name Levothyroxine Sodium Oral 50 mcg, daily Xanax Oral, pt unsure of dose Zoloft Oral 150mg , daily The source(s) of the original Home Medication information: patient The following Medications were given to the patient in the Emergency Department: Aspirin [PO] PO 325 mg, administered: 03/20/2017 5:46:00 PM The following Medications were prescribed to the patient: None.
--- NOTE | 2017-03-26 00:18 | ED MED RECONCILIATION SUMMARY ---
Patient: YADIEL GLYNNECCA Eulalio Medication Reconciliation Report [facility] VisitID: [id number] [address] [place] [address] 31y, F Registration Date/Time: 03/20/2017 Weight: 92.9 kg Height/Length: 64 in. BMI: 35.2 ALLERGIES: Bee stings, Shellfish-derived Products, Vicodin The patient's Home Medications are listed below: CONTINUE TAKING THE FOLLOWING MEDICATIONS: Albuterol Sulfate Inhalation 2 puffs, PRN BP med - pt can't remember name Levothyroxine Sodium Oral 50 mcg, daily Xanax Oral, pt unsure of dose Zoloft Oral 150mg , daily The source(s) of the original Home Medication information: patient The following Medications were given to the patient in the Emergency Department: Aspirin [PO] PO 325 mg, administered: 03/20/2017 5:46:00 PM The following Medications were prescribed to the patient: None.
== END 2017-03-20 20:00 | disposition home or self-care (01) ==
LOC: ED SRH 17:05
DX: G81.91 Hemiplegia, unspecified affecting right dominant side (principal); Z86.73 Personal history of transient ischemic attack (TIA), and cerebral infarction without residual deficits; Z79.899 Other long term (current) drug therapy; Z91.030 Bee allergy status; Z88.5 Allergy status to narcotic agent; Z91.013 Allergy to seafood

== ENCOUNTER 2017-03-23 21:25 | Emergency (ER) | payer OTHER ==
--- NOTE | 2017-03-23 22:31 | DIAGNOSTIC IMAGING REPORT ---
PROCEDURE: XR CHEST 2 VIEW INDICATION: SHORTNESS OF BREATH TECHNIQUE: PA and lateral view. COMPARISON: Chest x-ray 04/01/2011. FINDINGS: Lungs are clear. Cardiovascular structures are normal. Bony thorax is unremarkable. No significant interval change. IMPRESSION: 1. Negative chest.
--- NOTE | 2017-03-24 01:09 | ED NURSING NOTES ---
Clinical Report - Nurses [facility] [address] [place] [address] 03/23/2017 21:24 Patient: HIRO GLYNN TRIAGE Triage time 21:27. Acuity: LEVEL 3. Chief Complaint: CHEST PAIN and DISCOMFORT and SHORTNESS OF BREATH (left arm tingling). Alert. SEPSIS SCREEN: Sepsis Screen. Negative (no infection suspected/documented). IVELISSE COMA SCORE: Ivelisse Coma Scale: 15- eyes open spontaneously (4); best verbal response- oriented and converses (5); best motor response- obeys commands (6). --21:39 Sidra Leal R.N. 21:32 03/23/17. BP: 121/78. HR: 78. RR: 18. O2 saturation: 97%. Temp: 98.9 F. Pain level now 06/25. --21:39 Sidra Leal R.N. Weight: 92.9 kg stated. Height/Length: 64 inches Per Patient. BMI: 35.2. --21:36 Sidra Leal R.N. Medications Albuterol Sulfate Inhalation 2 puffs, PRN. BP med - pt can't remember name . Levothyroxine Sodium Oral 50 mcg, daily. --21:35 Sidra Leal R.N. Xanax Oral, as needed (pt unsure of dose ). Zoloft Oral 150mg , daily. --21:35 Sidra Leal R.N. Medication/allergy information source: the patient. --21:39 Sidra Leal R.N. Allergies Bee stings. Shellfish-derived Products. Vicodin. --21:35 Sidra Leal R.N. Keflex. --01:14 Mj Orourke R.N. History Arrived by private vehicle. Historian: patient. Accompanied by family. Primary physician (Milo). 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 Patient satting at 98% on RA with 18 resp/min. Cont to have right arm numbness, decreased ROM). 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 PAST MEDICAL HX: Immunizations: up-to-date. Last normal menstrual period- about 5 days ago. Denies current . SOCIAL HX: Current every day light tobacco smoker- less than 1/2 a pack per day. No alcohol use or drug use. No infectious disease exposure. ABUSE ASSESSMENT: No report of abuse. SELF HARM ASSESSMENT: A self harm assessment was performed. The patient answered "no" to the question "Do you have thoughts of harming or killing yourself?" and "Are you here because you tried to hurt yourself?". FALL RISK ASSESSMENT: Fall risk assessment completed. No fall risk identified. NUTRITIONAL RISK ASSESSMENT: The nutritional risk assessment revealed no deficiencies. FUNCTIONAL ASSESSMENT: Functional assessment: no impairments noted. LEARNING NEEDS ASSESSMENT: The learning needs assessment revealed no barriers. SKIN INTEGRITY ASSESSMENT: Skin integrity risk assessment completed. No skin integrity risk identified. --21:39 Sdira Leal R.N. PROBLEMS: Weakness. Infective Endocarditis. CVA - Cerebrovascular Accident. Anxiety Reaction. Cellulitis. Sprain. Bronchitis. Contusion. Abscess. Dysfunctional Uterine Bleeding. Seizure Disorder. Dizzy at work . Dizziness. Headache. Dental Pain. Depression. . Allergic Reaction. Acute Pain. UTI - Urinary Tract Infection. Lifestyle / Substance Problems. Polycystic Ovary Disease. Abdominal Pain. Ovarian Cyst. Immunizations. LNMP - Last Normal Menstrual Period. --21:35 Sidra Leal R.N. Dyspnea [Resolved]. Vaginitis [Resolved]. Lower Extremity Pain [Resolved]. Spontaneous (Miscarriage) [Resolved]. --21:35 Sidra Leal R.N. Seizure [RuleOut]. --21:35 Sidra Leal R.N. ADDITIONAL SURGERIES: . --21:35 Sidra Leal R.N. Interventions ID band on patient. To treatment room. --21:39 Sidra Leal R.N. PHYSICAL ASSESSMENT To room via wheelchair. GENERAL / NEURO / PSYCH: Alert. Oriented X 4. HEENT: Mucous membranes are pink. RESPIRATORY: Respirations not labored. Breath sounds within normal limits. CVS: Normal sinus rhythm noted. Cardiac rhythm: normal sinus rhythm. Heart sounds within normal limits. Pulses within normal limits. Capillary refill less than 2 seconds. SKIN: Skin is warm and dry. --21:40 Sidra Leal R.N. NURSING PROGRESS NOTES Monitoring of patient in place. Patient gowned. Head of bed elevated. Two patient identifiers checked. Call light placed in reach. Side rails up x 2. Bed placed in lowest position. Brakes of bed on. Patient ready for evaluation- chart flagged. ED physician notified. --21:41 Sidra Leal R.N. <<STRICKEN ENTRY-- 21:45 03/23/17. BP: 116/73. HR: 75. RR: 14. O2 saturation: 95%. Pain level now: 02/23. --22:00 Sidra Leal R.N. --END STRIKE>> Other. double charting --22:05 Sidra Leal R.N. 21:51 03/23/2017 Site #1 started via IV in the left hand with an 20g angiocath, with aseptic technique and good blood return; one attempt. Blood drawn: rainbow set. Saline lock flushed with 5 mL saline. --22:01 Sidra Leal R.N. 21:56 03/23/2017 Morphine IVP 4 mg given. via site #1. Allergies verified, confirmed 5 rights and sedative warning given to the patient. IV patency established. IV site checked: no pain, redness, or swelling. IV flushed thoroughly pre- and post-medication administration. IVP given by RN. --22:01 Sidra Leal R.N. <<STRICKEN ENTRY-- 21:45 03/23/17. BP: 116/73. HR: 75. RR: 14. O2 saturation: 95%. Pain level now: 02/23. --22:05 Sidra Leal R.N. --END STRIKE>> Other. double charting --22:05 Sidra Leal R.N. <<STRICKEN ENTRY-- 21:45 03/23/17. BP: 104/61. HR: 70. RR: 16. O2 saturation: 99%. Pain level now: 09/25. --22:06 Sidra Leal R.N. --END STRIKE>> Charted on wrong patient. --22:07 Sidra Leal R.N. 21:40. EKG time: (2138). EKG was performed by a tech and shown to the ED physician. --22:19 Sidra Leal R.N. Patient transported to radiology by stretcher with tech. (22:15). --22:19 Sidra Leal R.N. Patient returned from radiology by stretcher with tech. (22:23). --22:24 Sidra Leal R.N. 21:45 03/23/17. BP: 116/73. HR: 75. RR: 14. O2 saturation: 95%. Pain level now: 02/23. --22:26 Sidra Leal R.N. 22:15 03/23/17. BP: 100/57. HR: 69. RR: 11. O2 saturation: 96%. --22:36 Sidra Leal R.N. 23:30. Care transferred and report received. --23:30 Mj Orourke R.N. EKG time: (2138 PM). EKG was ordered, performed by a tech and shown to the ED physician. --23:34 Shirin Galvan 23:39Patient to restroom to collect urine sample. --23:39 Mj Orourke R.N. 23:41. Patient ID band checked for patient name and birthdate: patient confirmed. Clean catch urine collected with return of yellow-colored cloudy urine; sample sent to lab for urinalysis. Specimen labeled in the presence of the patient. --23:41 Mj Orourke R.N. 23:42 03/23/17. BP: 114/71. HR: 83. RR: 17. O2 saturation: 97% on room air. --23:43 Mj Orourke R.N. Cardiac rhythm: normal sinus rhythm. The patient is calm and resting quietly. RESPIRATORY: No respiratory distress. SKIN: Skin is warm and dry. Skin color within normal limits. --23:43 Mj Orourke R.N. 23:48 03/23/2017 Morphine IVP 4 mg given over 2 minute(s) via site #1. Allergies verified, confirmed 5 rights and sedative warning given to the patient. IV patency established. IV site checked: no pain, redness, or swelling. IV flushed thoroughly pre- and post-medication administration. --23:56 Mj Orourke R.N. 23:54. Patient ID band checked for patient name and birthdate: patient confirmed. Blood samples drawn from the left hand peripheral IV site with syringe by nurse ; labeled in presence of the patient and sent to lab: green and purple top. Initial blood discarded and additional blood sent to lab. Line flushed with 10 mL normal saline post blood draw. --23:57 Mj Orourke R.N. 01:14 03/24/2017 Aspirin PO 325 mg given. Allergies verified and confirmed 5 rights. --01:14 Mj Orourke R.N. 01:19 03/24/2017 Macrobid PO 100 mg given. Allergies verified and confirmed 5 rights. --01:19 Mj Orourke R.N. 01:30. The patient is calm and resting quietly. RESPIRATORY: No respiratory distress. SKIN: Skin is warm and dry. Skin color within normal limits. --01:39 Mj Orourke R.N. DISPOSITION / DISCHARGE Departure time: 01:33. Condition at departure: stable. No learning barriers present. Discharge instructions provided and reviewed with the patient. Reviewed medication(s) side effects, precautions, dosing and course information. Prescription(s) given to the patient. Patient verbalized understanding. Written instructions provided in Chinese. The patient was discharged home and accompanied by engine manager. She left the Emergency Department ambulatory and via private vehicle. Web Design Intern driving. FALL RISK ASSESSMENT: Fall risk assessment completed. No fall risk identified. --01:39 Mj Orourke R.N. 01:15 03/24/17. BP: 101/57. HR: 81. RR: 16. O2 saturation: 99% on room air. Pain level now: 01/23. --01:39 Mj Orourke R.N. 01:27 03/24/2017 Site #1 removed upon discharge. Catheter intact. Bandage applied. --01:40 Mj Orourke R.N. Locked/Released at 03/24/2017 1:40 by Mj Orourke R.N.
--- NOTE | 2017-03-24 01:09 | ED ORDER SUMMARY ---
..... Patient: HIRO GLYNN OrderSheet [facility] VisitID: [id number] [place] [address] 31y, F Registration Date/Time: 03/23/2017 ORDER SHEET Weight: 92.9 kg (stated) Allergies: Bee stings, Shellfish-derived Products, Vicodin, Keflex GENERAL ORDERS: RT Evaluation Stat (21:30 03/23/2017 Zenaida Martinez) (Cancelled: Other21:33 Zenaida Martinez) Chest 2V Urgent (21:32 03/23/2017 Zenaida Martinez) (Ack 21:40 CHagerty ER Job Honer) (22:22 Hiral) Logistic Manager (Continuous) (Respiratory Distress) (21:03/23/2017 Zenaida Martinez) (Ack 21:40 CHagerty ER Job Honer) (21:41 LAbe R.N.) CBC w Diff Urgent (21:03/23/2017 Zenaida Martinez) (Ack 21:40 CHagerty ER Job Honer) (22:00 LAbe R.N.) CMP Urgent (21:32 03/23/2017 Zenaida Martinez) (Ack 21:40 CHagerty ER Job Honer) (22:00 LAbe R.N.) UA-Culture if indicated Urgent (21:32 03/23/2017 Zenaida Martinez) (Ack 21:40 CHagerty ER Job Honer) (23:43 JQuivey R.N.) PT with INR Urgent (21:03/23/2017 Zenaida Martinez) (Ack 21:40 CHagerty ER Job Honer) (22:00 LAbe R.N.) D-Dimer Urgent (21:03/23/2017 Zenaida Martinez) (Ack 21:40 CHagerty ER Job Honer) (22:00 LAbe R.N.) Troponin-I Urgent (21:03/23/2017 Zenaida Martinez) (Ack 21:40 CHagerty ER Job Honer) (22:01 LAbe R.N.) Urine Drug Screen Urgent (21:03/23/2017 Zenaida Martinez) (Ack 21:40 CHagarlyn ER Job Honer) (23:43 JQuivey R.N.) Pulse oximeter (21:32 03/23/2017 Zenaida Martinez) (Ack 21:40 CHagerty ER Job Honer) (21:41 LAbe R.N.) Troponin-I (redraw 23:48) Urgent (22:26 03/23/2017 Zenaida Martinez) (Ack 22:33 CHagerty ER Job Honer) (23:56 JQuivey R.N.) MEDICATION ORDERS: Aspirin PO 325 mg (Do not crush or chew, NOW) (01:06 03/24/2017 Zenaida Martinez) (Ack 1:11 JQuivey R.N.) (1:14 JQuivey R.N.) Keflex PO 500 mg (NOW) (01:06 03/24/2017 Zenaida Martinez) (Ack 1:11 JQuivey R.N.) (Cancelled: Allergy1:15 JQuivesandip R.N.) Macrobid PO 100 mg (NOW) (01:16 03/24/2017 Zenaida Martinez) (1:19 JQuivey R.N.) IV FLUIDS: IV Saline Lock (21:32 03/23/2017 Zenaida Martinez) (22:01 LAbe R.N.) Morphine IV 4 mg (HIGH ALERT MEDICATION, NOW) (21:40 03/23/2017 Zenaida Martinez) (22:01 LAbe R.N.) Morphine IV 4 mg (HIGH ALERT MEDICATION, NOW) (23:45 03/23/2017 Zenaida Martinez) (23:56 JQuivey R.N.) ORDER SHEET NOTES: [Electronically signed by Mj Orourke R.N. (01:40 03/24/2017)] [Electronically signed by Manny Jeffries Dr. (05:52 03/26/2017)] [Electronically locked/signed by Mj Orourke R.N. (01:40 03/24/2017)]
--- NOTE | 2017-03-24 01:09 | ED ORDER SUMMARY ---
..... Patient: HIRO GLYNN OrderSheet [facility] VisitID: [id number] [place] [address] 31y, F Registration Date/Time: 03/23/2017 ORDER SHEET Weight: 92.9 kg (stated) Allergies: Bee stings, Shellfish-derived Products, Vicodin, Keflex GENERAL ORDERS: RT Evaluation Stat (21:30 03/23/2017 Zenaida Martinez) (Cancelled: Other21:33 Zenaida Martinez) Chest 2V Urgent (21:32 03/23/2017 Zenaida Martinez) (Ack 21:40 CHagerty ER Coal Getter) (22:22 Hiral) Mangle Roll Operator (Continuous) (Respiratory Distress) (21:03/23/2017 Zenaida Martinez) (Ack 21:40 CHagerty ER Coal Getter) (21:41 LAbe R.N.) CBC w Diff Urgent (21:03/23/2017 Zenaida Martinez) (Ack 21:40 CHagerty ER Coal Getter) (22:00 LAbe R.N.) CMP Urgent (21:32 03/23/2017 Zenaida Martinez) (Ack 21:40 CHagerty ER Coal Getter) (22:00 LAbe R.N.) UA-Culture if indicated Urgent (21:32 03/23/2017 Zenaida Martinez) (Ack 21:40 CHagerty ER Coal Getter) (23:43 JQuivey R.N.) PT with INR Urgent (21:03/23/2017 Zenaida Martinez) (Ack 21:40 CHagerty ER Coal Getter) (22:00 LAbe R.N.) D-Dimer Urgent (21:03/23/2017 Zenaida Martinez) (Ack 21:40 CHagerty ER Coal Getter) (22:00 LAbe R.N.) Troponin-I Urgent (21:03/23/2017 Zenaida Martinez) (Ack 21:40 CHagerty ER Coal Getter) (22:01 LAbe R.N.) Urine Drug Screen Urgent (21:03/23/2017 Zenaida Martinez) (Ack 21:40 CHagarlyn ER Coal Getter) (23:43 JQuivey R.N.) Pulse oximeter (21:32 03/23/2017 Zenaida Martinez) (Ack 21:40 CHagerty ER Coal Getter) (21:41 LAbe R.N.) Troponin-I (redraw 23:48) Urgent (22:26 03/23/2017 Zenaida Martinez) (Ack 22:33 CHagerty ER Coal Getter) (23:56 JQuivey R.N.) MEDICATION ORDERS: Aspirin PO 325 mg (Do not crush or chew, NOW) (01:06 03/24/2017 Zenaida Martinez) (Ack 1:11 JQuivey R.N.) (1:14 JQuivey R.N.) Keflex PO 500 mg (NOW) (01:06 03/24/2017 Zenaida Martinez) (Ack 1:11 JQuivey R.N.) (Cancelled: Allergy1:15 JQuivesandip R.N.) Macrobid PO 100 mg (NOW) (01:16 03/24/2017 Zenaida Martinez) (1:19 JQuivey R.N.) IV FLUIDS: IV Saline Lock (21:32 03/23/2017 Zenaida Martinez) (22:01 LAbe R.N.) Morphine IV 4 mg (HIGH ALERT MEDICATION, NOW) (21:40 03/23/2017 Zenaida Martinez) (22:01 LAbe R.N.) Morphine IV 4 mg (HIGH ALERT MEDICATION, NOW) (23:45 03/23/2017 Zenaida Martinez) (23:56 JQuivey R.N.) ORDER SHEET NOTES: [Electronically signed by Mj Orourke R.N. (01:40 03/24/2017)] [Electronically signed by Manny Jeffries Dr. (05:52 03/26/2017)] [Electronically locked/signed by Mj Orourke R.N. (01:40 03/24/2017)]
--- NOTE | 2017-03-24 01:09 | ED CLINICAL REPORT ---
Clinical Report - Physicians/Mid Levels [facility] [address] [place] [address] 03/23/2017 21:24 Patient: HIRO GLYNN Time Seen: 2129; initial patient contact. Arrived- By private vehicle. Historian- patient. HISTORY OF PRESENT ILLNESS Chief Complaint: CHEST PAIN. It is described as sharp and it is described as located in the central chest area. No radiation. At its maximum, severity described as 10 / 10. When seen in the E.D., severity described as 10 / 10. Modifying factors- (reports it is non-exertional). Not worsened by anything. Not relieved by anything. This started today and is still present. It was abrupt in onset and has been constant but is not gone now. Onset during rest. No nausea, vomiting or diaphoresis. (no cough. no unilateral leg swelling). She has had difficulty breathing. No additional chest pain. 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 REVIEW OF SYSTEMS No fever, chills or pedal edema. baseline weakness to the right side of the body. All systems otherwise negative, except as recorded above. PAST HISTORY See nurses notes. Denies the following risk factors for DVT/PE - history of DVT and pulmonary embolism, recent surgery, recent AK and congestive heart failure. Denies the following risk factors for DVT/PE - cancer and clotting disorder. Medications: Xanax Oral, as needed (pt unsure of dose ). Zoloft Oral 150mg , daily. Albuterol Sulfate Inhalation 2 puffs, PRN. BP med - pt can't remember name . Levothyroxine Sodium Oral 50 mcg, daily. Allergies: Bee stings. Keflex. Shellfish-derived Products. Vicodin. SOCIAL HISTORY Smoker- current status unknown. History of drug use. No alcohol use. No recent travel. Is a local resident. ADDITIONAL NOTES The nursing notes have been reviewed. PHYSICAL EXAM Vital Signs: 03/23/2017 21:32 BP: 121/78. HR: 78. RR: 18. O2 saturation: 97%. Temp: 98.9 F. Blood pressure normal. Oxygen saturation normal. Appearance: Alert. Oriented X3. No acute distress. Eyes: Pupils equal, round and reactive to light. Eyes normal inspection. ENT: Ears normal. Nose normal. Pharynx normal. Neck: Normal inspection. Neck supple. No JVD. CVS: Normal heart rate and rhythm. Heart sounds normal. Pulses normal. Respiratory: No respiratory distress. Breath sounds normal. Chest nontender. Abdomen: Soft and nontender. Bowel sounds normal. Back: Normal external inspection. Skin: Skin warm and dry. Normal skin color. No rash. Normal skin turgor. Extremities: Extremities exhibit normal ROM. No lower extremity edema. Neuro: No sensory deficit. (4+ strength on the right compared to the left.). LABS, X-RAYS, AND EKG EKG: No acute ischemia. Normal sinus rhythm. Normal P waves. Normal REECE. Normal QRS complex. Normal axis. Normal QT and QTc. Non-specific T wave inversion in lead III, V1 and V2. No ST elevation. The study has been interpreted contemporaneously. The study has been independently viewed by me. The EKG appears to be a good tracing. I do not agree with or confirm the computer reading of the EKG. Chest X-ray: (PROCEDURE: XR CHEST 2 VIEW INDICATION: SHORTNESS OF BREATH TECHNIQUE: PA and lateral view. COMPARISON: Chest x-ray 04/01/2011. FINDINGS: Lungs are clear. Cardiovascular structures are normal. Bony thorax is unremarkable. No significant interval change. IMPRESSION: 1. Negative chest.). The X-rays were independently viewed by me and interpreted by the radiologist. The X-rays were discussed with the radiologist (via pacs). Laboratory Tests: UA-Culture if indicated: (DOREEN: 03/23/2017 23:40) ( MsgRcvd 03/23/2017 23:58) Final results Test Result Flag Units (Reference) URINE COLOR YELLOW URINE APPEARANCE CLEAR URINE GLUCOSE NEGATIVE (NEGATIVE) URINE BILIRUBIN NEGATIVE (NEGATIVE) URINE KETONE NEGATIVE (NEGATIVE) URINE SPECIFIC GRAVITY 1.020 (1.010-1.030) URINE PH 6.0 (5.0-8.0) URINE PROTEIN NEGATIVE (NEGATIVE) URINE UROBILINOGEN 1.0 EU/dL (0.2-1.0) URINE NITRITE POSITIVE (NEGATIVE) URINE BLOOD 1+ (NEGATIVE) URINE LEUK ESTERASE POSITIVE (NEGATIVE) URINE RBC 3-5 rbc/hpf (0-1) URINE WBC 3-5 wbc/hpf (0-1) URINE EPITHELIAL CELLS 1-3 EPI/hpf (0-5) URINE BACTERIA MODERATE (2+ TO 3+) (NONE SEEN) URINE COMMENT CULTURE INDICATED URINE CULTURES ARE SET-UP BASED ON THE FOLLOWING CRITERIA:POSITIVE NITRITEPOSITIVE LEUKOCYTE ESTERASEGREATER THAN 10 WHITE BLOOD CELLSMODERATE (2+) OR GREATER BACTERIA CBC w Diff: (DOREEN: 03/23/2017 21:48) ( TngRcvd 03/23/2017 22:02) Final results Test Result Flag Units (Reference) WHITE BLOOD COUNT 14.9 H K/uL (4.5-11.5) RED BLOOD COUNT 4.10 M/uL (4.00-5.20) HEMOGLOBIN 12.6 gm/dL (12.0-16.0) HEMATOCRIT 37.2 % (36.0-46.0) MEAN CELL VOLUME 91 fL (80-100) MEAN CORPUSCULAR HGB 31 pg (26-34) MEAN CORPUSCULAR HGB CONC 34 g/dL (31-37) RED CELL DISTRIBUTION WIDTH 14.1 % (11.6-14.8) PLATELET COUNT 448 H K/uL (150-400) NEUTROPHIL % 62.0 % (50-75) LYMPH % 29.8 % (25-40) MONO % 4.0 % (3-14) EOSINOPHIL % 2.7 % (0-4) BASOPHIL % 1.5 % (0-2) PT with INR: (DOREEN: 03/23/2017 21:48) ( MsgRcvd 03/23/2017 22:12) Final results Test Result Flag Units (Reference) INR 1.0 (0.8-1.2) Low Intensity Therapy: INR 1.5-2.0 PT range 18.5-23.1Mod.Intensity Therapy: INR 2.0-3.0 PT range 23.1-31.5High Intensity Therapy: INR 2.5-3.5 PT range 27.4-35.5High Intensity Therapy 2: INR 3.0-4.0 PT range 31.5-39.3 D-DIMER QUANTITATIVE < 0.27 L ug/mLFEU (0.27-0.52) The primary value of this quantitative assay relates toits negative predictive value (i.e. exclusion) of pulmonaryembolism/deep vein thrombosis/DIC.Elevated levels of d-dimer may also occur with:, age, cancer, inflammation, liver disease,post-op, infection, hematoma, coronary disease, peripheralarteriopathy, bleeding disorders and thrombolytic treatment.Results should be correlated with other clinical andradiological data.Testing Methodology: Latex Immunoassay Troponin-I: (DOREEN: 03/23/2017 23:52) ( [facility] 03/24/2017 00:25) Final results Test Result Flag Units (Reference) TROPONIN I <0.05 L ng/mL (0.00-1.5) TROPONIN REFERENCE RANGE:<0.1 NEGATIVE0.1-1.5 INDETERMINANT>1.5 POSITIVE Urine Drug Screen: (DOREEN: 03/23/2017 23:40) ( [facility] 03/24/2017 00:03) Final results Test Result Flag Units (Reference) AMPHETAMINE/METHAMPHETAMINE NEGATIVE (NEGATIVE) BARBITURATE NEGATIVE (NEGATIVE) BENZODIAZEPINE NEGATIVE (NEGATIVE) CANNABINOID NEGATIVE (NEGATIVE) COCAINE NEGATIVE (NEGATIVE) ECSTASY NEGATIVE (NEGATIVE) METHADONE NEGATIVE (NEGATIVE) OPIATE POSITIVE H (NEGATIVE) The urine drug screen is a qualitative screening test fordrug overdose and abuse. All screen results should beconsidered as presumptive.Drugs screened for are as follows:BenzodiazepinesCocaineAmphetamines/MetamphetaminesTHC (Tetrahydrocannabinol)OpiatesBarbituratesEcstasyMethadonePositive results are unconfirmed. For confirmation, notifythe lab for the specimen to be sent to the reference lab.All confirmations must be performed by a differentmethodology.The ingestion of natural herbal and plant productscontaining Ephedra/Ephedra metabolites can produce in urineone or more substances capable of cross reacting withamphetamine/methamphetamine immunoassays. These testsprovide a preliminary result only. A more specificalternative chemical method must be used to obtain aconfirmed analytical result. CMP: (DOREEN: 03/23/2017 21:48) ( MsgRcvd 03/23/2017 22:22) Final results Test Result Flag Units (Reference) GLUCOSE 91 mg/dL (70-110) BUN 10 mg/dL (7-18) CREATININE 0.8 mg/dL (0.6-1.3) Estimated GFR >60 mL/min Estimated GFR- >60 mL/min Note: Persistent reduction over 3 months in eGFR<60 mL/min/1.73 m2 defines CKD. Patients with eGFR values>=60 mL/min/1.73 m2 may also have CKD if evidence ofpersistent proteinuria. Additional information may be foundat www.kidney.org. SODIUM 139 mmol/L (136-145) POTASSIUM 3.5 mmol/L (3.5-5.1) CHLORIDE 103 mmol/L (98-107) CARBON DIOXIDE 26 mmol/L (21-32) CALCIUM 8.9 mg/dL (8.5-10.1) TOTAL PROTEIN 7.5 g/dL (6.4-8.2) ALBUMIN 3.7 g/dL (3.3-5.0) BILIRUBIN, TOTAL 0.3 mg/dL (0.0-1.0) ALKALINE PHOSPHATASE 113 U/L (46-116) AST (SGOT) 21 U/L (15-37) ALT (SGPT) 38 U/L (12-78) TROPONIN I <0.05 L ng/mL (0.00-1.5) TROPONIN REFERENCE RANGE:<0.1 NEGATIVE0.1-1.5 INDETERMINANT>1.5 POSITIVE . PROGRESS AND PROCEDURES Course of Care: the patient is a pleasant 31-year-old female with significant past medical history significant for CVA with right-sided deficits presenting for evaluation of chest pain and shortness of breath. because of patient's history of peripheral vascular disease, with more concern for acute myocardial infarction or pulmonary embolism. Patient is agreeable to the treatment plan. EKG has been ordered including chest x-ray and laboratory studies. Patient at low enough risk for a d-dimer evaluation. The patient has a normal d-dimer, do not fill patient has pulmonary embolism. Symptoms are not consistent with thoracic Aortic dissection. feel that if the patient's d-dimer is normal, do not feel that this entity is likely as well. The patient's workup was remarkable for the findings above. Patient noted to have negative troponin. Repeat troponin has been ordered because of the patient's time course of chest pain. Repeat troponin is noted to be negative. Patient doesn't know significantly improved while here in the emergency department. Because the patient's negative workup. Emergency department, do not fill patient is admitted to the hospital require further emergency department workup/evaluation. Patient resting in bed and in no acute distress. Patient continues to be nontoxic. Repeat examination is reassuring. I discussion with the patient in regards to her workup here in the emergency department to clean diagnosis, Home care, Follow-up and return precautions. All questions have been answered. The patient expressed understanding of these instructions and was agreeable to them. Disposition: Discharged. Condition: good. CLINICAL IMPRESSION Chest pain characterized as "discomfort" .12 lead EKG performed. (acute anterior). 03/23/2017 23:42 BP: 114/71. HR: 83. RR: 17. O2 saturation: 97%. 03/23/2017 22:15 BP: 100/57. HR: 69. RR: 11. O2 saturation: 96%. Blood pressure normal. Oxygen saturation normal. Acute urinary tract infection with cystitis and hematuria. INSTRUCTIONS (check with your doctor if you are suppose to be on any type of blood thinner such as aspirin or warfarin (coumadin)). Warnings: GENERAL WARNINGS: Return or contact your physician immediately if your condition worsens or changes unexpectedly, if not improving as expected, or if other problems arise. SPECIFICALLY, return if you develop chest, neck, jaw, shoulder, arm, or back pain, difficulty breathing, a fluttering sensation in your chest, lightheadedness, fainting, excessive fatigue, or sudden sweating. Your Current Medications: CONTINUE TAKING THE FOLLOWING MEDICATIONS: Albuterol Sulfate Inhalation : 2 puffs PRN. BP med - pt can't remember name *. Levothyroxine Sodium Oral : 50 mcg daily. Xanax Oral : prn, pt unsure of dose. Zoloft Oral : 150mg daily. Prescription Medications: Macrobid 100 mg: take 1 capsule orally every 12 hours for 5 days. No refill. Substitution is permissible. (disp 10 caps) OTC Medications: Aspirin 81 mg (available over the counter): take 1 orally every 24 hours. Dispense thirty (30). No refills. Follow-up: Return to the emergency department as needed. Follow up with your doctor in three days. Reason for referral: recheck today's concerns. Screening today revealed the patient's blood pressure to be in the normal range. The patient should follow up with a primary care provider for blood pressure management. Understanding of the discharge instructions verbalized by patient. (Electronically signed by Manny Jeffries Dr. 03/26/2017 5:52)
--- NOTE | 2017-03-24 01:09 | ED NURSING NOTES ---
Clinical Report - Nurses [facility] [address] [place] [address] 03/23/2017 21:24 Patient: HIRO GLYNN TRIAGE Triage time 21:27. Acuity: LEVEL 3. Chief Complaint: CHEST PAIN and DISCOMFORT and SHORTNESS OF BREATH (left arm tingling). Alert. SEPSIS SCREEN: Sepsis Screen. Negative (no infection suspected/documented). IVELISSE COMA SCORE: Ivelisse Coma Scale: 15- eyes open spontaneously (4); best verbal response- oriented and converses (5); best motor response- obeys commands (6). --21:39 Sidra Leal R.N. 21:32 03/23/17. BP: 121/78. HR: 78. RR: 18. O2 saturation: 97%. Temp: 98.9 F. Pain level now 06/25. --21:39 Sidra Leal R.N. Weight: 92.9 kg stated. Height/Length: 64 inches Per Patient. BMI: 35.2. --21:36 Sidra Leal R.N. Medications Albuterol Sulfate Inhalation 2 puffs, PRN. BP med - pt can't remember name . Levothyroxine Sodium Oral 50 mcg, daily. --21:35 Sidra Leal R.N. Xanax Oral, as needed (pt unsure of dose ). Zoloft Oral 150mg , daily. --21:35 Sidra Leal R.N. Medication/allergy information source: the patient. --21:39 Sidra Leal R.N. Allergies Bee stings. Shellfish-derived Products. Vicodin. --21:35 Sidra Leal R.N. Keflex. --01:14 Mj Orourke R.N. History Arrived by private vehicle. Historian: patient. Accompanied by family. Primary physician (Milo). 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 Patient satting at 98% on RA with 18 resp/min. Cont to have right arm numbness, decreased ROM). Treatment SENSOR SPECIALIST: None. PAST MEDICAL HX: Immunizations: up-to-date. Last normal menstrual period- about 5 days ago. Denies current . SOCIAL HX: Current every day light tobacco smoker- less than 1/2 a pack per day. No alcohol use or drug use. No infectious disease exposure. ABUSE ASSESSMENT: No report of abuse. SELF HARM ASSESSMENT: A self harm assessment was performed. The patient answered "no" to the question "Do you have thoughts of harming or killing yourself?" and "Are you here because you tried to hurt yourself?". FALL RISK ASSESSMENT: Fall risk assessment completed. No fall risk identified. NUTRITIONAL RISK ASSESSMENT: The nutritional risk assessment revealed no deficiencies. FUNCTIONAL ASSESSMENT: Functional assessment: no impairments noted. LEARNING NEEDS ASSESSMENT: The learning needs assessment revealed no barriers. SKIN INTEGRITY ASSESSMENT: Skin integrity risk assessment completed. No skin integrity risk identified. --21:39 Sidra Leal R.N. PROBLEMS: Weakness. Infective Endocarditis. CVA - Cerebrovascular Accident. Anxiety Reaction. Cellulitis. Sprain. Bronchitis. Contusion. Abscess. Dysfunctional Uterine Bleeding. Seizure Disorder. Dizzy at work . Dizziness. Headache. Dental Pain. Depression. . Allergic Reaction. Acute Pain. UTI - Urinary Tract Infection. Lifestyle / Substance Problems. Polycystic Ovary Disease. Abdominal Pain. Ovarian Cyst. Immunizations. LNMP - Last Normal Menstrual Period. --21:35 Sidra Leal R.N. Dyspnea [Resolved]. Vaginitis [Resolved]. Lower Extremity Pain [Resolved]. Spontaneous (Miscarriage) [Resolved]. --21:35 Sidra Leal R.N. Seizure [RuleOut]. --21:35 Sidra Leal R.N. ADDITIONAL SURGERIES: . --21:35 Sidra Leal R.N. Interventions ID band on patient. To treatment room. --21:39 Sidra Leal R.N. PHYSICAL ASSESSMENT To room via wheelchair. GENERAL / NEURO / PSYCH: Alert. Oriented X 4. HEENT: Mucous membranes are pink. RESPIRATORY: Respirations not labored. Breath sounds within normal limits. CVS: Normal sinus rhythm noted. Cardiac rhythm: normal sinus rhythm. Heart sounds within normal limits. Pulses within normal limits. Capillary refill less than 2 seconds. SKIN: Skin is warm and dry. --21:40 Sidra Leal R.N. NURSING PROGRESS NOTES Monitoring of patient in place. Patient gowned. Head of bed elevated. Two patient identifiers checked. Call light placed in reach. Side rails up x 2. Bed placed in lowest position. Brakes of bed on. Patient ready for evaluation- chart flagged. ED physician notified. --21:41 Sidra Leal R.N. <<STRICKEN ENTRY-- 21:45 03/23/17. BP: 116/73. HR: 75. RR: 14. O2 saturation: 95%. Pain level now: 02/23. --22:00 iSdra Leal R.N. --END STRIKE>> Other. double charting --22:05 Sidra Leal R.N. 21:51 03/23/2017 Site #1 started via IV in the left hand with an 20g angiocath, with aseptic technique and good blood return; one attempt. Blood drawn: rainbow set. Saline lock flushed with 5 mL saline. --22:01 Sidra Leal R.N. 21:56 03/23/2017 Morphine IVP 4 mg given. via site #1. Allergies verified, confirmed 5 rights and sedative warning given to the patient. IV patency established. IV site checked: no pain, redness, or swelling. IV flushed thoroughly pre- and post-medication administration. IVP given by RN. --22:01 Sidra Leal R.N. <<STRICKEN ENTRY-- 21:45 03/23/17. BP: 116/73. HR: 75. RR: 14. O2 saturation: 95%. Pain level now: 02/23. --22:05 Sidra Leal R.N. --END STRIKE>> Other. double charting --22:05 Sidra Leal R.N. <<STRICKEN ENTRY-- 21:45 03/23/17. BP: 104/61. HR: 70. RR: 16. O2 saturation: 99%. Pain level now: 09/25. --22:06 Sidra Leal R.N. --END STRIKE>> Charted on wrong patient. --22:07 Sidra Leal R.N. 21:40. EKG time: (2138). EKG was performed by a tech and shown to the ED physician. --22:19 Sidra Leal R.N. Patient transported to radiology by stretcher with tech. (22:15). --22:19 Sidra Leal R.N. Patient returned from radiology by stretcher with tech. (22:23). --22:24 Sidra Leal R.N. 21:45 03/23/17. BP: 116/73. HR: 75. RR: 14. O2 saturation: 95%. Pain level now: 02/23. --22:26 Sidra Leal R.N. 22:15 03/23/17. BP: 100/57. HR: 69. RR: 11. O2 saturation: 96%. --22:36 Sidra Leal R.N. 23:30. Care transferred and report received. --23:30 Mj Orourke R.N. EKG time: (2138 PM). EKG was ordered, performed by a tech and shown to the ED physician. --23:34 Shirin Galvan 23:39Patient to restroom to collect urine sample. --23:39 Mj Orourke R.N. 23:41. Patient ID band checked for patient name and birthdate: patient confirmed. Clean catch urine collected with return of yellow-colored cloudy urine; sample sent to lab for urinalysis. Specimen labeled in the presence of the patient. --23:41 Mj Orourke R.N. 23:42 03/23/17. BP: 114/71. HR: 83. RR: 17. O2 saturation: 97% on room air. --23:43 Mj Orourke R.N. Cardiac rhythm: normal sinus rhythm. The patient is calm and resting quietly. RESPIRATORY: No respiratory distress. SKIN: Skin is warm and dry. Skin color within normal limits. --23:43 Mj Orourke R.N. 23:48 03/23/2017 Morphine IVP 4 mg given over 2 minute(s) via site #1. Allergies verified, confirmed 5 rights and sedative warning given to the patient. IV patency established. IV site checked: no pain, redness, or swelling. IV flushed thoroughly pre- and post-medication administration. --23:56 Mj Orourke R.N. 23:54. Patient ID band checked for patient name and birthdate: patient confirmed. Blood samples drawn from the left hand peripheral IV site with syringe by nurse ; labeled in presence of the patient and sent to lab: green and purple top. Initial blood discarded and additional blood sent to lab. Line flushed with 10 mL normal saline post blood draw. --23:57 Mj Orourke R.N. 01:14 03/24/2017 Aspirin PO 325 mg given. Allergies verified and confirmed 5 rights. --01:14 Mj Orourke R.N. 01:19 03/24/2017 Macrobid PO 100 mg given. Allergies verified and confirmed 5 rights. --01:19 Mj Orourke R.N. 01:30. The patient is calm and resting quietly. RESPIRATORY: No respiratory distress. SKIN: Skin is warm and dry. Skin color within normal limits. --01:39 Mj Orourke R.N. DISPOSITION / DISCHARGE Departure time: 01:33. Condition at departure: stable. No learning barriers present. Discharge instructions provided and reviewed with the patient. Reviewed medication(s) side effects, precautions, dosing and course information. Prescription(s) given to the patient. Patient verbalized understanding. Written instructions provided in Tongan. The patient was discharged home and accompanied by chief gauger. She left the Emergency Department ambulatory and via private vehicle. Hand Roller driving. FALL RISK ASSESSMENT: Fall risk assessment completed. No fall risk identified. --01:39 Mj Orourke R.N. 01:15 03/24/17. BP: 101/57. HR: 81. RR: 16. O2 saturation: 99% on room air. Pain level now: 01/23. --01:39 Mj Orourke R.N. 01:27 03/24/2017 Site #1 removed upon discharge. Catheter intact. Bandage applied. --01:40 Mj Orourke R.N. Locked/Released at 03/24/2017 1:40 by Mj Orourke R.N.
--- NOTE | 2017-03-26 05:53 | ED MED RECONCILIATION SUMMARY ---
Patient: HIRO GLYNN Medication Reconciliation Report [facility] VisitID: [id number] [place] [address] 31y, F Registration Date/Time: 03/23/2017 Weight: 92.9 kg Height/Length: 64 in. BMI: 35.2 ALLERGIES: Bee stings, Keflex, Shellfish-derived Products, Vicodin The patient's Home Medications are listed below: CONTINUE TAKING THE FOLLOWING MEDICATIONS: Albuterol Sulfate Inhalation 2 puffs, PRN BP med - pt can't remember name Levothyroxine Sodium Oral 50 mcg, daily Xanax Oral, pt unsure of dose Zoloft Oral 150mg , daily The source(s) of the original Home Medication information: patient The following Medications were given to the patient in the Emergency Department: Morphine [IVP] IVP 4 mg, administered: 03/23/2017 9:56:00 PM Morphine [IVP] IVP 4 mg, administered: 03/23/2017 11:48:00 PM Aspirin [PO] PO 325 mg, administered: 03/24/2017 1:14:00 AM Macrobid [PO] PO 100 mg, administered: 03/24/2017 1:19:00 AM The following Medications were prescribed to the patient: Macrobid 100 mg: take 1 capsule orally every 12 hours for 5 days. No refill. Substitution is permissible.(disp 10 caps) -- Manny Jeffries Dr. Aspirin 81 mg (available over the counter): take 1 orally every 24 hours. Dispense thirty (30). No refills. -- Manny Jeffries Dr.
--- NOTE | 2017-03-26 05:53 | ED DISCHARGE INSTRUCTIONS ---
Patient: HIRO GLYNN General Instructions [facility] VisitID: [id number] [place] [address] 31y, F Registration Date/Time: 03/23/2017 Chest pain characterized as "discomfort" .12 lead EKG performed. (acute anterior). 03/23/2017 23:42 BP: 114/71. HR: 83. RR: 17. O2 saturation: 97%. 03/23/2017 22:15 BP: 100/57. HR: 69. RR: 11. O2 saturation: 96%. Blood pressure normal. Oxygen saturation normal. Acute urinary tract infection with cystitis and hematuria. INSTRUCTIONS (check with your doctor if you are suppose to be on any type of blood thinner such as aspirin or warfarin (coumadin)). Warnings: GENERAL WARNINGS: Return or contact your physician immediately if your condition worsens or changes unexpectedly, if not improving as expected, or if other problems arise. SPECIFICALLY, return if you develop chest, neck, jaw, shoulder, arm, or back pain, difficulty breathing, a fluttering sensation in your chest, lightheadedness, fainting, excessive fatigue, or sudden sweating. Your Current Medications: CONTINUE TAKING THE FOLLOWING MEDICATIONS: Albuterol Sulfate Inhalation : 2 puffs PRN. BP med - pt can't remember name *. Levothyroxine Sodium Oral : 50 mcg daily. Xanax Oral : prn, pt unsure of dose. Zoloft Oral : 150mg daily. Prescription Medications: Macrobid 100 mg: take 1 capsule orally every 12 hours for 5 days. No refill. Substitution is permissible. (disp 10 caps) OTC Medications: Aspirin 81 mg (available over the counter): take 1 orally every 24 hours. Dispense thirty (30). No refills. Follow-up: Return to the emergency department as needed. Follow up with your doctor in three days. Reason for referral: recheck today's concerns. Screening today revealed the patient's blood pressure to be in the normal range. The patient should follow up with a primary care provider for blood pressure management. Understanding of the discharge instructions verbalized by patient. ADDITIONAL INFORMATION Chest Pain, Uncertain Cause Chest pain can happen for a number of reasons. Sometimes the cause can not be determined. If yourcondition does not seem serious, and your pain does not appear to be coming from your heart, your doctor may recommend watching it closely. Sometimes the signs of a serious problem take more time to appear. Therefore, watch for the warning signs listed below. Home care After your visit, follow these recommendations: Rest today and avoid strenuous activity. Take any prescribed medicine as directed. Follow-up care Follow up with your doctor or this facility as instructed or if you do not start to feel better within 24 hours. Call 911 Get immediate medical attention if any of the following occur: A change in the type of pain: if it feels different, becomes more severe, lasts longer, or begins to spread into your shoulder, arm, neck, jaw or back Shortness of breath or increased pain with breathing Weakness, dizziness, or fainting Rapid heart beat Get prompt medical attention Call your doctor right away if any of the following occur: Cough with dark colored sputum (phlegm) or blood Fever of 100.4F(38C) or higher, or as directed by your health care provider Swelling, pain or redness in one leg Bladder Infection,Female (Adult) A bladder infection ("cystitis" or "UTI") usually causes a constant urge to urinate and a burning when passing urine. Urine may be cloudy, smelly or dark. There may be pain in the lower abdomen. A bladder infection occurs when bacteria from the vaginal area enter the bladder opening (urethra). This can occur from sexual intercourse, wearing tight clothing, dehydration and other factors. Home Care: Drink lots of fluids (at least 6-8 glasses a day, unless you must restrict fluids for other medical reasons). This will force the medicine into your urinary system and flush the bacteria out of your body. Avoid sexual intercourse until your symptoms are gone. Avoid caffeine, alcohol and spicy foods. These can irritate the bladder. A bladder infection is treated with antibiotics. You may also be given Pyridium (generic = phenazopyridine) to reduce the burning sensation. This medicine will cause your urine to become a bright orange color. The orange urine may stain clothing. You may wear a pad or panty-liner to protect clothing. Preventing Future Infections: Always wipe from front to back after a bowel movement. Keep the genital area clean and dry. Drink plenty of fluids each day to avoid dehydration. Both sexual partners should wash before intercourse. Urinate right after intercourse to flush out the bladder. Wear cotton underwear and cotton-lined panty hose; avoid tight-fitting pants. If you are on control pills and are having frequent bladder infections, discuss with your doctor. Follow Up: Return to this facility or see your doctor if ALL symptoms are not gone after three days of treatment. Get Prompt Medical Attention if any of the following occur: Fever of 100.4F (38C) or higher, or as directed by your healthcare provider No improvement by the third day of treatment Increasing back or abdominal pain Repeated vomiting; unable to keep medicine down Weakness, dizziness or fainting Vaginal discharge Pain, redness or swelling in the labia (outer vaginal area) Blood In The Urine Blood in the urine ("hematuria") has many possible causes. If it occurs after an injury (such as a car accident or fall), it is most often a sign of bruising to the kidney or bladder. Common medical causes of blood in the urine include urinary tract infection, kidney stone, inflammation, tumors, or certain other diseases of the kidney or bladder. Menstruation can cause blood to appear in the urine sample, although it is not coming from the urinary tract. If only a trace amount of blood is present, it will show up on the urine test, even though the urine may be yellow and not pink or red. This may occur with any of the above conditions, as well as heavy exercise or high fever. In this case, your doctor may want to repeat the urine test on another day. This will show if the blood is still present. If so, then other tests can be done to find out the cause. Home Care: If your urine does not appear bloody (pink, brown or red) then you do not need to restrict your activity in any way. If you can see blood in your urine, rest and avoid heavy exertion until your next exam. Do not use aspirin or anti-inflammatory medicine like ibuprofen (Motrin, Advil) or naproxen (Naprosyn, Aleve). These thin the blood and may increase bleeding. Follow Up with your doctor or as advised by our staff. If you were injured and had blood in your urine, you should have a repeat urine test in 1-2 days. Contact your doctor or return to this facility for this test. [NOTE: A radiologist will review any X-rays that were taken. We will notify you of any new findings that may affect your care.] Get Prompt Medical Attention if any of the following occur: Bright red blood or blood clots in the urine (if a new symptom) Weakness, dizziness or fainting New groin, abdominal or back pain Fever of 100.4F (38C) or higher, or as directed by your healthcare provider Repeated vomiting Bleeding from nose, gums or easy bruising Nitrofurantoin, Nitrofurantoin, Macrocrystalline Oral capsule What is this medicine? NITROFURANTOIN (mel MERCEDES toyn) is an antibiotic. It is used to treat urinary tract infections. How should I use this medicine? Take this medicine by mouth with a glass of water. Follow the directions on the prescription label. Take this medicine with food or milk. Take your doses at regular intervals. Do not take your medicine more often than directed. Do not stop taking except on your doctor's advice. Talk to your tongue and quarter stitcher regarding the use of this medicine in children. While this drug may be prescribed for selected conditions, precautions do apply. What side effects may I notice from receiving this medicine? Side effects that you should report to your doctor or health care administrative tech as soon as possible: allergic reactions like skin rash or hives, swelling of the face, lips, or tongue chest pain cough difficulty breathing dizziness, drowsiness fever or infection joint aches or pains pale or blue-tinted skin redness, blistering, peeling or loosening of the skin, including inside the mouth tingling, burning, pain, or numbness in hands or feet unusual bleeding or bruising unusually weak or tired yellowing of eyes or skin Side effects that usually do not require medical attention (report to your doctor or health care administrative tech if they continue or are bothersome): dark urine diarrhea headache loss of appetite nausea or vomiting temporary hair loss What may interact with this medicine? antacids containing magnesium trisilicate probenecid quinolone antibiotics like ciprofloxacin, lomefloxacin, norfloxacin and ofloxacin sulfinpyrazone What if I miss a dose? If you miss a dose, take it as soon as you can. If it is almost time for your next dose, take only that dose. Do not take double or extra doses. Where should I keep my medicine? Keep out of the reach of children. Store at room temperature between 15 and 30 degrees C (59 and 86 degrees F). Protect from light. Throw away any unused medicine after the expiration date. What should I tell my health care provider before I take this medicine? They need to know if you have any of these conditions: anemia diabetes [id number] dehydrogenase deficiency kidney disease liver disease lung disease other chronic illness an unusual or allergic reaction to nitrofurantoin, other antibiotics, other medicines, foods, dyes or preservatives or trying to get breast-feeding What should I watch for while using this medicine? Tell your doctor or health care administrative tech if your symptoms do not improve or if you get new symptoms. Drink several glasses of water a day. If you are taking this medicine for a long time, visit your doctor for regular checks on your progress. If you are diabetic, you may get a false positive result for sugar in your urine with certain brands of urine tests. Check with your doctor. Aspirin Oral tablet What is this medicine? ASPIRIN ( pir in) is a pain reliever. It is used to treat mild pain and fever. This medicine is also used as directed by a doctor to prevent and to treat heart attacks, to prevent strokes, and to treat arthritis or inflammation. How should I use this medicine? Take this medicine by mouth with a glass of water. Follow the directions on the package or prescription label. You can take this medicine with or without food. If it upsets your stomach, take it with food. Do not take your medicine more often than directed. Talk to your tongue and quarter stitcher regarding the use of this medicine in children. While this drug may be prescribed for children as young as 12 years of age for selected conditions, precautions do apply. Children and teenagers should not use this medicine to treat chicken pox or flu symptoms unless directed by a doctor. Patients over 65 years old may have a stronger reaction and need a smaller dose. What side effects may I notice from receiving this medicine? Side effects that you should report to your doctor or health care administrative tech as soon as possible: allergic reactions like skin rash, itching or hives, swelling of the face, lips, or tongue breathing problems changes in hearing, ringing in the ears confusion general ill feeling or flu-like symptoms pain on swallowing redness, blistering, peeling or loosening of the skin, including inside the mouth or nose signs and symptoms of bleeding such as bloody or black, tarry stools; red or dark-brown urine; spitting up blood or brown material that looks like coffee grounds; red spots on the skin; unusual bruising or bleeding from the eye, gums, or nose trouble passing urine or change in the amount of urine unusually weak or tired yellowing of the eyes or skin Side effects that usually do not require medical attention (report to your doctor or health care administrative tech if they continue or are bothersome): diarrhea or constipation nausea, vomiting stomach gas, heartburn What may interact with this medicine? Do not take this medicine with any of the following medications: cidofovir ketorolac probenecid This medicine may also interact with the following medications: alcohol alendronate bismuth subsalicylate flavocoxid herbal supplements like feverfew, garlic, baylee, ginkgo biloba, horse chestnut medicines for diabetes or glaucoma like acetazolamide, methazolamide medicines for gout medicines that treat or prevent blood clots like enoxaparin, heparin, ticlopidine, warfarin other aspirin and aspirin-like medicines NSAIDs, medicines for pain and inflammation, like ibuprofen or naproxen pemetrexed sulfinpyrazone varicella live vaccine What if I miss a dose? If you are taking this medicine on a regular schedule and miss a dose, take it as soon as you can. If it is almost time for your next dose, take only that dose. Do not take double or extra doses. Where should I keep my medicine? Keep out of the reach of children. Store at room temperature between 15 and 30 degrees C (59 and 86 degrees F). Protect from heat and moisture. Do not use this medicine if it has a strong vinegar smell. Throw away any unused medicine after the expiration date. What should I tell my health care provider before I take this medicine? They need to know if you have any of these conditions: anemia asthma bleeding problems child with chickenpox, the flu, or other viral infection diabetes gout if you frequently drink alcohol containing drinks kidney disease liver disease low level of vitamin K lupus smoke tobacco stomach ulcers or other problems an unusual or allergic reaction to aspirin, tartrazine dye, other medicines, dyes, or preservatives or trying to get breast-feeding What should I watch for while using this medicine? If you are treating yourself for pain, tell your doctor or health care administrative tech if the pain lasts more than 10 days, if it gets worse, or if there is a new or different kind of pain. Tell your doctor if you see redness or swelling. Also, check with your doctor if you have a fever that lasts for more than 3 days. Only take this medicine to prevent heart attacks or blood clotting if prescribed by your doctor or health care administrative tech. Do not take aspirin or aspirin-like medicines with this medicine. Too much aspirin can be dangerous. Always read the labels carefully. This medicine can irritate your stomach or cause bleeding problems. Do not smoke cigarettes or drink alcohol while taking this medicine. Do not lie down for 30 minutes after taking this medicine to prevent irritation to your throat. If you are scheduled for any medical or dental procedure, tell your healthcare provider that you are taking this medicine. You may need to stop taking this medicine before the procedure. You have been given the following additional information: Chest Pain, Uncertain Cause Bladder Infection, Female (Adult) Hematuria Nitrofurantoin, Nitrofurantoin, Macrocrystalline Oral capsule Aspirin Oral tablet (Electronically signed by Manny Jeffries Dr. 03/26/2017 5:52)
--- NOTE | 2017-03-26 05:53 | ED MAR SUMMARY ---
..... Medication Administration Record [facility] [address] [place] [address] Patient: HIRO GLYNN Visit ID: [id number] 31y, F Weight: 92.9 kg Height/Length: 64 in BMI: 35.2 ALLERGIES: Bee stings, Shellfish-derived Products, Vicodin, Keflex Given 21:56 03/23/2017 Sidra Leal R.N. Medication Administered: MORPHINE [IVP], Dose: 4 mg IVP, Site: #1 left hand. Medication Ordered: Morphine IV 4 mg (HIGH ALERT MEDICATION, NOW). Given 23:48 03/23/2017 Mj Orourke R.N. Medication Administered: MORPHINE [IVP], Dose: 4 mg IVP over 2 minute(s), Site: #1 left hand. Medication Ordered: Morphine IV 4 mg (HIGH ALERT MEDICATION, NOW). Given 01:14 03/24/2017 Mj Orourke R.N. Medication Administered: ASPIRIN [PO], Dose: 325 mg PO. Medication Ordered: Aspirin PO 325 mg (Do not crush or chew, NOW). Given 01:19 03/24/2017 Mj Orourke R.N. Medication Administered: MACROBID [PO], Dose: 100 mg PO. Medication Ordered: Macrobid PO 100 mg (NOW).
--- NOTE | 2017-03-26 05:53 | ED MAR SUMMARY ---
..... Medication Administration Record [facility] [address] [place] [address] Patient: HIRO GLYNN Visit ID: [id number] 31y, F Weight: 92.9 kg Height/Length: 64 in BMI: 35.2 ALLERGIES: Bee stings, Shellfish-derived Products, Vicodin, Keflex Given 21:56 03/23/2017 Sidra Leal R.N. Medication Administered: MORPHINE [IVP], Dose: 4 mg IVP, Site: #1 left hand. Medication Ordered: Morphine IV 4 mg (HIGH ALERT MEDICATION, NOW). Given 23:48 03/23/2017 Mj Orourke R.N. Medication Administered: MORPHINE [IVP], Dose: 4 mg IVP over 2 minute(s), Site: #1 left hand. Medication Ordered: Morphine IV 4 mg (HIGH ALERT MEDICATION, NOW). Given 01:14 03/24/2017 Mj Orourke R.N. Medication Administered: ASPIRIN [PO], Dose: 325 mg PO. Medication Ordered: Aspirin PO 325 mg (Do not crush or chew, NOW). Given 01:19 03/24/2017 Mj Orourke R.N. Medication Administered: MACROBID [PO], Dose: 100 mg PO. Medication Ordered: Macrobid PO 100 mg (NOW).
--- NOTE | 2017-03-26 05:53 | ED MED RECONCILIATION SUMMARY ---
Patient: HIRO GLYNN Medication Reconciliation Report [facility] VisitID: [id number] [place] [address] 31y, F Registration Date/Time: 03/23/2017 Weight: 92.9 kg Height/Length: 64 in. BMI: 35.2 ALLERGIES: Bee stings, Keflex, Shellfish-derived Products, Vicodin The patient's Home Medications are listed below: CONTINUE TAKING THE FOLLOWING MEDICATIONS: Albuterol Sulfate Inhalation 2 puffs, PRN BP med - pt can't remember name Levothyroxine Sodium Oral 50 mcg, daily Xanax Oral, pt unsure of dose Zoloft Oral 150mg , daily The source(s) of the original Home Medication information: patient The following Medications were given to the patient in the Emergency Department: Morphine [IVP] IVP 4 mg, administered: 03/23/2017 9:56:00 PM Morphine [IVP] IVP 4 mg, administered: 03/23/2017 11:48:00 PM Aspirin [PO] PO 325 mg, administered: 03/24/2017 1:14:00 AM Macrobid [PO] PO 100 mg, administered: 03/24/2017 1:19:00 AM The following Medications were prescribed to the patient: Macrobid 100 mg: take 1 capsule orally every 12 hours for 5 days. No refill. Substitution is permissible.(disp 10 caps) -- Manny Jeffries Dr. Aspirin 81 mg (available over the counter): take 1 orally every 24 hours. Dispense thirty (30). No refills. -- Manny Jeffries Dr.
== END 2017-03-24 01:33 | disposition home or self-care (01) ==
LOC: ED SRH 21:25
DX: R07.89 Other chest pain (principal); N30.01 Acute cystitis with hematuria; I69.351 Hemiplegia and hemiparesis following cerebral infarction affecting right dominant side; Z79.899 Other long term (current) drug therapy; Z79.51 Long term (current) use of inhaled steroids; Z88.5 Allergy status to narcotic agent; Z91.030 Bee allergy status; Z91.013 Allergy to seafood
CPT/HCPCS: 90004; 90100; 90148; 90469; 90616; 91556; 92760; 92761; 92762; 92763; 92764; 92765; 92766; 92767; 94060; 95059